=== PATIENT | male | born 1965 | race Caucasian/White ===

== ENCOUNTER 2021-09-27 18:07 | Emergency (ER) | payer OTHER ==
--- OUTSIDE RECORDS SUMMARY | 2021-09-27 18:16 | XMS REPORT | Continuity of Care Document ---
:1965 Author Organization [facility] t Address [address] [place] [address] Care Team Providers Name Role Phone Emani Knox Primary Care Physician Meerasaveronica Attending Clinician Unavailable Richard Galvin Attending Clinician Unavailable VIKY JONES Attending Clinician Unavailable Parker Attending Clinician Unavailable Wanda SCHNEIDER Attending Clinician Unavailable Wanda Schneider DO Attending Clinician Marquis LEE, L Attending Clinician Unavailable OUMAR, S Attending Clinician Unavailable Oumar PALMER, S Attending Clinician Bobbi LEE, A Attending Clinician Unavailable Narayan PALEMR Attending Clinician Boo Thomas MD Attending Clinician Boo THOMAS Attending Clinician Unavailable Erica PALMER Attending Clinician Augustina Pizarro Attending Clinician Unavailable Richard Galvin Admitting Clinician Unavailable Vanda Wilcox Admitting Clinician Unavailable Tiffanie OSEGUERA Admitting Clinician Unavailable Payers Payer Name Policy Type Policy Number Effective Date Expiration Date S aurelia [facility] [id number] 2020 O 00:00:00 MED[place]ID OF [place] [id number] 2020 00:00:00 [employer] MEDICARE [id number] 2018 ADVANTAGE 00:00:00 [employer]NA [id number] 2020 2020 00:00:00 00:00:00 Problems Condition Condition Condition Status Onset Resolution Last Treating Co mments Source Name Details Category Date Date Treatment Clinician Date Extensor Extensor Disease Active NPI:1 52 tendinitis tendinitis 11-11 85 [id number] of hand of hand 00:00: 00 Left wrist Left wrist Disease Active N PI:152 sprain sprain 11-08 [id number] 00:00: 00 S69.82XA - Diagnosis Active 2020-11-07 Memoria OTH 10-23 01:50:00 l INJURIES S69.82XA 00:01: Herm concha OF LEFT - OTH 00 WRIST, H INJURIES OF LEFT WRIST, H Active 10/23/2020 [facility] [place] Wrist Wrist Disease Active NPI:152 pain, pain, 10-22 [id number] acute, acute, 00:00: left left 00 Injury of Injury of Disease Active Last NPI :152 triangular triangular 10-22 Assessmen [id number] fibrocarti fibrocarti 00:00: t & Plan: demarco pal 00 Formattin complex of complex of g of this left wrist left wrist note might be different from the original. I will give a referral to Dr Dayo Maldonado, Orthopedi c hand surgeon, [place] Physician s for evaluatio n from a surgical consultat sommer rodrigues But I recommend continued use of the wrist brace. And may take methocarb shruthi, muscle laxer, naproxen for pain control. Overall he has not had to take too much because he has been doing fairly well without any med or extra type of treatment . CP Diagnosis Active 2020-06-21 Mem oria 1- 08:18:00 l CP 00:00: Active 06/02/2020 [facility] SBO Diagnosis Active 2018-052019-05-26 Mem oria 2- 12:42:00 l SBO 00:00: Active 05/20/2019 [facility] ABD PAIN Diagnosis Active 2018-052019-05-20 M emoria 07-21 01:26:00 l ABD PAIN 00:00: Robby n 00 Active 05/20/2019 [facility] ABSCESS Diagnosis Active 2014-02-15 Me moria 02-14 15:05:00 l ABSCESS 00:00: [place] 00 Active 02/14/2014 [facility] Cervico-oc Problem Active 2021-02-22 M emoria cipital 12-20 21:32:57 l neuralgia 00:00: [place] (finding) Cervico-oc 00 cipital neuralgia (finding) Active 12/20/2013 Problem 02/22/2021 Data migrated from [place] Orders on 10/23/14. [facility]ID [place] Muscle Problem Active 2021-02-22 Memor ia pain 12-20 21:32:57 l (finding) Muscle 00:00: Laura nn pain 00 (finding) Active 12/20/2013 Problem 02/22/2021 Data migrated from [place] Orders on 10/23/14. [facility] [place] ABDOMINAL Diagnosis Active 2013-11-20 Memoria PAIN 11-19 02:49:00 l 19:00: Aly ABDOMINAL 00 PAIN Active 11/19/2013 [facility] Appendicit Problem Resolve 2021-02-22 Memoria is d 21:32:57 l (disorder) Robby n Appendicit is (disorder) Res[facility] [place] Hiatal Problem Resolve 2021-02-22 Ant miryam hernia d 21:32:57 l (disorder) Hiatal Herm concha hernia (disorder) Resolved [facility] [place] Inguinal Problem Resolve 2021-02-22 Me moria hernia d 21:32:57 l (disorder) Inguinal He rmann hernia (disorder) Resolved Problem 02/22/2021 [facility] [place] Crohn's Problem Active 2021-02-22 Ant miryam disease 21:32:57 l (disorder) Crohn's Her galindo disease (disorder) Active Problem 02/22/2021 [facility] Diabetes Problem Active 2021-02-22 Mem oria mellitus 21:32:57 l (disorder) Diabetes He rmann mellitus (disorder) Active Problem 02/22/2021 [facility] [place] Injury of Problem Active 2021-02-22 Me moria forearm 21:32:57 l (disorder) Injury Herm concha of forearm (disorder) [facility] [place] Injury of Problem Active 2021-02-22 Me moria wrist 21:32:57 l (disorder) Injury Herm concha of wrist (disorder) Active [facility] [place] [place] Intestinal Problem Active 2021-02-22 M emoria obstructio 21:32:57 l n [place] (disorder) Intestinal obstructio n (disorder) Active Problem 02/22/2021 [facility] [place] Varicose Problem Active 2021-02-22 Mem oria veins of 21:32:57 l lower Varicose Robby n extremity veins of (disorder) lower extremity (disorder) Active Problem 02/22/2021 [facility], [facility] [facility] Problem Active 2021-02-22 M emoria procedure 21:32:57 l with Aly explicit Counseling context procedure (situation with ) explicit context (situation ) Active Problem 02/22/2021 [facility] Group Gastroesop Problem Active 2021-02-22 M emoria hageal 21:32:57 l reflux [place] disease Gastroesop (disorder) hageal reflux disease (disorder) Active Problem 02/22/2021 [facility] Type II Problem Active 2021-02-22 Ant miryam diabetes 21:32:57 l mellitus Type II Laura nn uncontroll diabetes ed mellitus (finding) uncontroll ed (finding) Active Problem 02/22/2021 [facility] Group UNSPECIFIE Diagnosis Active 2019-05-24 Memoria D 07:50:00 l INTESTINAL Robby n OBSTRUCTIO UNSPECIFIE N, D UNSPECIFIE INTESTINAL D T OBSTRUCTIO N, UNSPECIFIE D T Active [facility] UNSP Diagnosis Active 2019-05-26 Mem oria INTESTNL 12:42:00 l OBST, UNSP UNSP Robby n TO INTESTNL PARTIAL V OBST, UNSP TO PARTIAL V Active [facility] No known No known Disease NPI:1 83 active active [id number] problems problems History of Past Illness Condition Condition Condition Status Onset Resolution Last Treating Co mments Source Name Details Category Date Date Treatment Clinician Date Chest Problem 2020-06-04 2020-06-04 Ami emoria pain, 06-02 22:41:58 22:41:58 l unspecifie Chest 18:00: Laura nn d pain, 00 unspecifie d 06/02/2020 06/04/2020 [facility] Unspecifie Problem 2018-09-09 2018-09-09 Memoria d -16 01:27:28 01:27:28 l abdominal 05:00: Aly pain Unspecifie 00 d abdominal pain 09/06/2018 09/09/2018 [facility] Discharge Problem 2014-02-18 2014-02-18 Memoria Diagnosis: 02-15 04:59:10 04:59:10 l Cellulitis 05:00: Robby n Discharge 00 Diagnosis: Cellulitis 02/15/2014 02/18/2014 [facility] Discharge Problem 2013-11-22 2013-11-22 Memoria Diagnosis: 6-30 22:38:29 22:38:29 l Abdominal 05:00: Aly hernia Discharge 00 Diagnosis: Abdominal hernia 11/20/2013 11/22/2013 [facility] Discharge Problem 2013-11-22 2013-11-22 Memoria Diagnosis: 6-30 22:38:29 22:38:29 l Abdominal 05:00: Aly pain Discharge 00 Diagnosis: Abdominal pain 11/20/2013 11/22/2013 [facility] Allergies, Adverse Reactions, Alerts Allergy Allergy Status Severity Reaction(s) Onset Inactive Treating Comm ents Source Name Type Date Date Clinician LATEX DRUG Active Med Hives 2020-05 NPI:183 INGREDI 06-04 [id number] 00:00: 00 Latex Propensi Active Hives 2020-05 NPI:183 ty to 06-04 [id number] adverse 00:00: reaction 00 s Penicill DA Active SV UNKNOWN-HAPP 2020-05 HC A ins ENED A 06-04 Clear BABY-RASHES, 00:00: Smith COULDNT 00 [facility] chlorhex DA Active [place] POSSIBLE 2020-05 [facility] idine HIVES 06-04 Clear 00:00: Smith 00 [facility] prometha DA Active U DOES NOT 2020-05 [facility] zine RELIEVE 1-12 Clear NAUSEA 00:00: Smith 00 [facility] latex DA Active [place] POSSIBLE 2020-05 [facility] HIVES 1-12 Clear 00:00: [place] 00 [facility] PENICILL 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 Active 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:183 IN INGREDI 1 [id number] 00:00: 00 Penicill Propensi Active Unknown - 2020-05 NPI :183 in ty to See comments 06-03 [id number] adverse 00:00: reaction 00 s chlorhex DA Active [place] 2020-05 [facility] idine 0-27 [place] 00:00: d 00 [facility] latex DA Active [place] 2020-05 [facility] 0-27 [place] 00:00: d 00 [facility] chlorhex DA Active [place] POSSIBLE 2020-05 [facility] idine HIVES 0-27 [place] 00:00: d 00 [facility] latex DA Active [place] POSSIBLE 2020-05 [facility] HIVES 0-27 [place] 00:00: d 00 [facility] Penicill DA Active SV UNKNOWN-HAPP 2020-05 HC A ins ENED A 0-21 [place] BABY-RASHES, 00:00: d COULDNT [facility] BREATH [place] prometha DA Active U DOES NOT 2020-05 [facility] zine RELIEVE 0-21 [place] NAUSEA 00:00: d 00 [facility] Center Penicill DA Active SV 2020-05 [facility] ins 0-21 Clear 00:00: Smith 00 [facility] prometha DA Active U 2020-05 [facility] zine 0-21 Clear 00:00: [place] 00 [facility] prometha DA Active U 2020-05 [facility] zine 0-19 [place] 00:00: d 00 [facility] prometha DA Active U DOES NOT 2020-05 [facility] zine RELIEVE 0-19 [place] NAUSEA 00:00: d 00 [facility] Center Penicill DA Active SV UNKNOWN-HAPP 2016-05 HC A ins ENED A 1-03 Clear BABY-RASHES, 00:00: Smith COULDNT 00 [facility] Penicill DA Active SV 2016-05 [facility] ins 1-03 Clear 00:00: [place] 00 [facility] penicill penicill Active Memori a ins<sup> ins<sup> 7-30 l 1</sup> 1</sup> 05:00: Phenerga Phenerga Active Memori a n n 12-20 l 05:00: Penicill Allergy Active Data NPI:152 ins to 12-20 [facility] [id number] [facility] 00:00: from GE e 00 Centricit y on 12/20/14. Originall y documente d as PENICILLI N. 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 Clinician (SIG) Name Name No known No NPI:183 medications 06-22 [id number] 11:11: 15 No known No NPI:183 medications 06-22 [id number] 11:11: 15 acetaminoph 2020-05 1000mg 1,000 mg, NPI:183 en -12 11-12 Oral, [id number] (TYLENOL) 11:15: 10:14 ONCE, 1 tablet 00 :00 dose, On 1,000 mg Wed04/04/21 at 0515, Routine vancomycin 2020-05 No 15mg/kg 1,000 mg NPI:183 (VANCOCIN) 06-04 (rounded 1318 781 1,000 mg in 09:30: 09:30 from 1,068 NaCl 0.9% 00 :00 mg = 15 (NS) 250 mL mg/kg VIAL-MATE ?71.2 kg), IV IV piggyback Piggyback, ONCE, 1 dose, On Wed04/04/21 at 0330, Administer over 60 Minutes, 250 mL
Reas on for Anti-Infec tive: Empiric Therapy for Suspected Infection< br>Empiric Therapy Site: Abdominal< br>Duratio n of therapy: 72 hours iopamidol 2020-05- No [id number] 120mL 120 mL, NPI:183 (ISOVUE 06-04 Intravenou [id number] 370-500 mL) 08:45: 08:45 s, ONCE, 1 injection 00 :00 dose, On 120 mL Wed04/04/21 at 0245, Routine NaCl 0.9% 2020-05 Yes 1000mL at 125 NPI: 183 (NS) IV 1-12 mL/hr, [id number] infusion 08:15: Intravenou 1,000 mL 00 s, CONTINUOUS , Starting on Wed04/04/21 at 0215, Until Discontinu ed, Routine&lt ;br>After 500 CC Bolus
NaCl 0.9% 2020-05 No 500mL at 999 NPI: 183 (NS) bolus 06-0412 mL/hr, 500 13 [id number] infusion 07:45: 07:13 mL, IV 500 mL 00 :00 Infusion, ONCE, 1 dose, On Wed04/04/21 at 0145, STAT NaCl 0.9% 2020-05 Yes 1000mL at 999 NPI: 183 (NS) IV 1-12 mL/hr, [id number] infusion 06:45: Intravenou 1,000 mL 00 s, CONTINUOUS , Starting on Wed04/04/21 at 0045, Until Discontinu ed, Routine No known 2020-05 No NPI:183 medications 06-03 [id number] 23:23: 54 Docusate Yes 100 mg = 1 Mem oria Sodium 100 9-10 cap, PO, l MG Oral 15:24: Daily, PRN Herm concha Capsule 00 Constipati on, # 20 cap, 0 Refill(s) POLYETHYLEN Yes 17 gm, PO, Memoria E GLYCOL 9-10 Daily, 0 l 3350 15:24: Refill(s) Docusate Yes 100 mg = 1 Mem oria Sodium 100 9-10 cap, PO, l MG Oral 15:24: Daily, PRN Herm concha Capsule 00 Constipati on, # 20 cap, 0 Refill(s) POLYETHYLEN Yes 17 gm, PO, Memoria E GLYCOL 9-10 Daily, 0 l 3350 15:24: Refill(s) dexlansopra Yes 60 mg = 1 M emoria zole 60 MG 8-18 cap, PO, l Enteric 19:44: Daily, # Robby n Coated 00 30 cap, 0 Capsule Refill(s) [Dexilant] Amitriptyli Yes PO, Memori a ne 8-18 Bedtime, 0 l 19:44: Refill(s) dexlansopra Yes 60 mg = 1 M emoria zole 60 MG 8-18 cap, PO, l Enteric 19:44: Daily, # Robby n Coated 00 30 cap, 0 Capsule Refill(s) [Dexilant] Amitriptyli Yes PO, Memori a ne 8-18 Bedtime, 0 l 19:44: Refill(s) iopamidol 2020- No [id number] 120mL 120 mL, NPI:183 (ISOVUE 11-27 Intravenou [id number] 81 370-500 mL) 14:59: 15:10 s, ONCE, 1 injection 00 :00 dose, Wed 120 mL 11/27/20 at 1015, Routine meloxicam 2020- No [id number] 7.5mg Take 1 NPI:152 (Mobic) 7.5 10-22 tablet [id number] MG tablet 00:00: 04:59 (7.5 mg 00 :00 total) by mouth 1 (one) time each day if needed for mild pain or moderate pain. meloxicam 2020-2020- No [id number] 7.5mg Take 1 NPI:152 (Mobic) 7.5 10-2202 tablet [id number] 05 MG tablet 00:00: 04:59 (7.5 mg 00 :00 total) by mouth 1 (one) time each day if needed for mild pain or moderate pain. meloxicam 2020-2020- No [id number] 7.5mg Take 1 NPI:152 (Mobic) 7.5 10-22 tablet [id number] MG tablet 00:00: 04:59 (7.5 mg 00 :00 total) by mouth 1 (one) time each day if needed for mild pain or moderate pain. meloxicam 2020-2020- No [id number] 7.5mg Take 1 NPI:152 (Mobic) 7.5 10-22 tablet [id number] 05 MG tablet 00:00: 04:59 (7.5 mg 00 :00 total) by mouth 1 (one) time each day if needed for mild pain or moderate pain. lisinopril 2020-0 No 5 mg = 1 Mem oria 5 mg oral 5-24 tab, PO, l tablet 21:49: Daily, # [place] 00 90 tab, 0 Refill(s) lisinopril 2020-0 No 5 mg = 1 Mem oria 5 mg oral 5-24 tab, PO, l tablet 21:49: Daily, # [place] 00 90 tab, 0 Refill(s) Glipizide 5 2020-0 Yes 5 mg = 1 Me moria MG Oral 5-19 tab, PO, l Tablet 20:20: Daily, # Aly 00 30 tab, 5 Refill(s), Pharmacy: [facility], 172.72, cm, 10/09/20 14:40:00 CDT, Height, 84.176, kg, 10/09/20 14:40:00 CDT, Weight Glipizide 5 2020-0 Yes 5 mg = 1 Me moria MG Oral 5-19 tab, PO, l Tablet 20:20: Daily, # Aly 00 30 tab, 5 Refill(s), Pharmacy: [facility], 172.72, cm, 10/09/20 14:40:00 CDT, Height, 84.176, kg, 10/09/20 14:40:00 CDT, Weight sildenafil 2020-0 Yes 25 mg = 1 Me moria 25 MG Oral 5-19 tab, PO, l Tablet 20:07: Daily, PRN Laura nn 00 for erectile dysfunctio n, # 6 tab, 5 Refill(s), Pharmacy: [facility], 172.72, cm, 10/09/20 14:40:00 CDT, Height, 84.176, kg, 10/09/20 14:40:00 CDT, Weight sildenafil 2020-0 Yes 25 mg = 1 Me moria 25 MG Oral 5-19 tab, PO, l Tablet 20:07: Daily, PRN Laura nn 00 for erectile dysfunctio n, # 6 tab, 5 Refill(s), Pharmacy: [facility], 172.72, cm, 10/09/20 14:40:00 CDT, Height, 84.176, kg, 10/09/20 14:40:00 CDT, Weight empaglifloz 2020-0 Yes 1 tab, PO, Memoria in 25 MG / 5-19 QAM, # 30 l Linagliptin 20:05: tab, 5 Herm concha 5 MG Oral 00 Refill(s), Tablet Pharmacy: [Glyxambi] [facility], 172.72, cm, 10/09/20 14:40:00 CDT, Height, 84.176, kg, 10/09/20 14:40:00 CDT, Weight Glipizide 5 2020-0 No 5 mg = 1 Me moria MG Oral 5-19 tab, PO, l Tablet 20:05: Before Aly 00 Breakfast, # 30 tab, 5 Refill(s), Pharmacy: [facility], 172.72, cm, 10/09/20 14:40:00 CDT, Height, 84.176, kg, 10/09/20 14:40:00 CDT, Weight Metformin 2020-0 Yes 1,000 mg = Me moria hydrochlori 5-19 1 tab, PO, l de 1000 MG 20:05: BID, # 60 He rmann Oral Tablet 00 tab, 5 Refill(s), Pharmacy: [facility], 172.72, cm, 10/09/20 14:40:00 CDT, Height, 84.176, kg, 10/09/20 14:40:00 CDT, Weight sucralfate 0 Yes 1 gm = 1 Mem oria 1 g oral 5-19 tab, PO, l tablet 20:05: QID, # 120 Laura nn 00 tab, 5 Refill(s), Pharmacy: [facility], 172.72, cm, 10/09/20 14:40:00 CDT, Height, 84.176, kg, 10/09/20 14:40:00 CDT, Weight empaglifloz Yes 1 tab, PO, Memoria in 25 MG / 5-19 QAM, # 30 l Linagliptin 20:05: tab, 5 Herm concha 5 MG Oral 00 Refill(s), Tablet Pharmacy: [Glyxambi] [facility], 172.72, cm, 10/09/20 14:40:00 CDT, Height, 84.176, kg, 10/09/20 14:40:00 CDT, Weight Glipizide 5 2020-0 No 5 mg = 1 Me moria MG Oral 5-19 tab, PO, l Tablet 20:05: Before Aly 00 Breakfast, # 30 tab, 5 Refill(s), Pharmacy: [facility], 172.72, cm, 10/09/20 14:40:00 CDT, Height, 84.176, kg, 10/09/20 14:40:00 CDT, Weight Metformin 0 Yes 1,000 mg = Me moria hydrochlori 5-19 1 tab, PO, l de 1000 MG 20:05: BID, # 60 He rmann Oral Tablet 00 tab, 5 Refill(s), Pharmacy: [facility], 172.72, cm, 10/09/20 14:40:00 CDT, Height, 84.176, kg, 10/09/20 14:40:00 CDT, Weight sucralfate 0 Yes 1 gm = 1 Mem oria 1 g oral 5-19 tab, PO, l tablet 20:05: QID, # 120 Laura nn 00 tab, 5 Refill(s), Pharmacy: [facility], 172.72, cm, 10/09/20 14:40:00 CDT, Height, 84.176, kg, 10/09/20 14:40:00 CDT, Weight atorvastati 0 Yes 40 mg = 1 M emoria n 40 mg 5-19 tab, PO, l oral tablet 20:04: Daily, # He rmann 00 30 tab, 5 Refill(s), Pharmacy: [facility], 172.72, cm, 10/09/20 14:40:00 CDT, Height, 84.176, kg, 10/09/20 14:40:00 CDT, Weight atorvastati Yes 40 mg = 1 M emoria n 40 mg 5-19 tab, PO, l oral tablet 20:04: Daily, # He rmann 00 30 tab, 5 Refill(s), Pharmacy: [facility], 172.72, cm, 10/09/20 14:40:00 CDT, Height, 84.176, kg, 10/09/20 14:40:00 CDT, Weight atorvastati 0 Yes NPI:15 2 n (Lipitor) 5-11 [id number] 40 MG 00:00: tablet 00 metFORMIN 2020-0 Yes NPI:152 (Glucophage 5-11 [id number] ) 1000 MG 00:00: tablet 00 Glyxambi 2020-0 Yes NPI:152 25-5 MG 5-11 [id number] 00:00: 00 atorvastati 2020-0 Yes NPI:15 2 n (Lipitor) 5-11 [id number] 40 MG 00:00: tablet 00 metFORMIN 2020-0 Yes NPI:152 (Glucophage 5-11 [id number] ) 1000 MG 00:00: tablet 00 Glyxambi 2020-0 Yes NPI:152 25-5 MG 5-11 [id number] 00:00: 00 atorvastati 2020-0 Yes NPI:15 2 n (Lipitor) 5-11 [id number] 40 MG 00:00: tablet 00 metFORMIN 2020-0 Yes NPI:152 (Glucophage 5-11 [id number] ) 1000 MG 00:00: tablet 00 Glyxambi 2021-0 Yes NPI:152 25-5 MG 5-11 [id number] 00:00: 00 atorvastati 2021-0 Yes NPI:15 2 n (Lipitor) 5-11 [id number] 40 MG 00:00: tablet 00 metFORMIN 2021-0 Yes NPI:152 (Glucophage 5-11 [id number] ) 1000 MG 00:00: tablet 00 Glyxambi 2020-0 Yes NPI:152 25-5 MG 5-11 [id number] 00:00: 00 atorvastati 2021-0 Yes NPI:15 2 n (Lipitor) 5-11 [id number] 40 MG 00:00: tablet 00 metFORMIN 1-0 Yes NPI:152 (Glucophage 5-11 [id number] ) 1000 MG 00:00: tablet 00 Glyxambi 2021-0 Yes NPI:152 25-5 MG 5-11 [id number] 00:00: 00 glipiZIDE 1-0 Yes NPI:152 XL 5-06 [id number] (Glucotrol 00:00: XL) 5 MG 24 00 hr tablet glipiZIDE 1-0 Yes NPI:152 XL 5-06 [id number] (Glucotrol 00:00: XL) 5 MG 24 00 hr tablet glipiZIDE 1-0 Yes NPI:152 XL 5-06 [id number] (Glucotrol 00:00: XL) 5 MG 24 00 hr tablet glipiZIDE 1-0 Yes NPI:152 XL 5-06 [id number] (Glucotrol 00:00: XL) 5 MG 24 00 hr tablet glipiZIDE 1-0 Yes NPI:152 XL 5-06 [id number] (Glucotrol 00:00: XL) 5 MG 24 00 hr tablet Omnipaque 1-0 No 45 Memoria 300 1-10 mL/min, l injectable 18:47: STAT, Robby n solution 00 Start date: 06/02/20 12:47:00 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, Stop date: 06/02/20 12:47:00 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 Omnipaque 2020-0 No 45 Memoria 300 1-10 mL/min, l injectable 18:47: STAT, Robby n solution 00 Start date: 06/02/20 12:47:00 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, Stop date: 06/02/20 12:47:00 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 NS (Bolus) No 250 mL, Ant miryam IV 1-10 250 ml/hr, l 17:55: Infuse [place] 00 Over: 1 hr, Route: IV, 250, Drug form: INJ, ONCE, Priority: STAT, Dosing Weight 85.199 kg, Start date: 06/02/20 11:55:00 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, Stop date: 06/02/20 11:55:00 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, 0 NS (Bolus) No 250 mL, Ant miryam IV 1-10 250 ml/hr, l 17:55: Infuse Aly 00 Over: 1 hr, Route: IV, 250, Drug form: INJ, ONCE, Priority: STAT, Dosing Weight 85.199 kg, Start date: 06/02/20 11:55:00 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, Stop date: 06/02/20 11:55:00 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, 0 Saline No Notes: Memoria Flush 0.9% 1-10 (Same as: l 17:46: BD [place] 00 Posiflush) Saline No Notes: Memoria Flush 0.9% 1-10 (Same as: l 17:46: BD [place] 00 Posiflush) Levofloxaci 2019-0 No Notes: Do M emoria n 05-24 not give l 21:25: w/antacids Aly 00 , dairy pdt & minerals Take 1 hr before or 2 hr after dairy products Levofloxaci 2019-0 No Notes: Do M emoria n 05-24 not give l 21:25: w/antacids [place] 00 , dairy pdt & minerals Take 1 hr before or 2 hr after dairy products Dicyclomine 2020-0 Yes 20 mg = 1 M emoria Hydrochlori 1- tab, PO, l de 20 MG 21:23: QID-Before Her galindo Oral Tablet 32 Meals, # [Bentyl] 56 tab, 1 Refill(s), Pharmacy: [place] [facility] [id number] Dicyclomine 2020-0 Yes 20 mg = 1 M emoria Hydrochlori 1- tab, PO, l de 20 MG 21:23: QID-Before Her galindo Oral Tablet 32 Meals, # [Bentyl] 56 tab, 1 Refill(s), Pharmacy: [place] [address] levofloxaci 2020-0 Yes 750 mg = 1 Memoria n 750 mg 1-01 tab, PO, l oral tablet 21:23: Daily, X 5 Aly 00 day, # 5 tab, 0 Refill(s), Pharmacy: [place] [address] levofloxaci 2020-0 Yes 750 mg = 1 Memoria n 750 mg 1-01 tab, PO, l oral tablet 21:23: Daily, X 5 Aly 00 day, # 5 tab, 0 Refill(s), Pharmacy: [place] [id number] Potassium 2020-0 No Notes: Memori a Chloride 1-01 (Same as: l 1.33 MEQ/ML 19:42: K-Pura) Herm concha Oral 00 With food Solution and full glass of water Potassium 0 No Notes: Memori a Chloride 1-01 (Same as: l 1.33 MEQ/ML 19:42: K-Pura) Herm concha Oral 00 With food Solution and full glass of water Levaquin 2018-05 No Notes: Memoria 2-31 (Same l 23:00: as:Levaqui n) Levaquin 2018-05 No Notes: Memoria 2-31 (Same l 23:00: as:Levaqui n) Dicyclomine 2018-05 No 20 mg = 1 M emoria Hydrochlori 2-31 tab, PO, l de 20 MG 15:46: QID-Before Her galindo Oral Tablet 00 Meals, # [Bentyl] 56 tab, 0 Refill(s) Dicyclomine 2018-05 No 20 mg = 1 M emoria Hydrochlori 2-31 tab, PO, l de 20 MG 15:46: QID-Before Her galindo Oral Tablet 00 Meals, # [Bentyl] 56 tab, 0 Refill(s) Benadryl 2018-05 No Notes: Memoria 2-31 (Same as: l 03:36: Benadryl) Benadryl 2018-05 No Notes: Memoria 2-31 (Same as: l 03:36: Benadryl) Flagyl 2018-05 No Notes: Memoria 2-31 (Same as: l 00:13: Flagyl) Avoid alcohol. Cipro 2019-1 No Notes: Do Memoria 2-31 not l 00:13: refrigerat [place] 00 e Flagyl 2018-05 No Notes: Memoria 2-31 (Same as: l 00:13: Flagyl) [place] 00 Avoid alcohol. Cipro 2018-05 No Notes: Do Memoria 2-31 not l 00:13: refrigerat [place] 00 e Calcium 2018-05 No 1,000 mL, Memor ia Chloride 2-30 Rate: 50 l 0.002 22:48: ml/hr, [place] MEQ/ML / 00 Infuse Glucose 50 over: 20 MG/ML / hr, Route: Potassium IV, Dosing Chloride Weight 0.004 89.1 kg, MEQ/ML / Total Sodium Volume: Chloride 1,000, 0.147 Start MEQ/ML date: Injectable 05/22/19 Solution 16:48:00 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, Duration: 30 day, Stop date: 06/21/19 16:47:00 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, 2.09, m2, 0 Calcium 2018-05 No 1,000 mL, Memor ia Chloride 2-30 Rate: 50 l 0.002 22:48: ml/hr, Aly MEQ/ML / 00 Infuse Glucose 50 over: 20 MG/ML / hr, Route: Potassium IV, Dosing Chloride Weight 0.004 89.1 kg, MEQ/ML / Total Sodium Volume: Chloride 1,000, 0.147 Start MEQ/ML date: Injectable 05/22/19 Solution 16:48:00 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, Duration: 30 day, Stop date: 06/21/19 16:47:00 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, 2.09, m2, 0 Codeine 2018-05 No Notes: Memoria Phosphate 2 2-30 (Same As: l MG/ML / 03:00: Robitussin Herm concha Guaifenesin 00 AC) 20 MG/ML Oral Solution Codeine 2018-05 No Notes: Mem[facility] Phosphate 2 2-30 (Same As: l MG/ML / 03:00: Robitussin Herm concha Guaifenesin AC) 20 MG/ML Oral Solution phenol 2018-05 No Notes: Memoria 2-29 Chlorasept l 15:09: ic [place] (Same as: Chlorasept ic, Sore Throat [place]) WASTE: F/P - Black; E - Municipal Trash Bin phenol 2018-05 No Notes: Memoria 2-29 Chlorasept l 15:09: ic [place] (Same as: Chlorasept ic, Sore Throat [place]) WASTE: F/P - Black; E - Municipal Trash Bin atorvastati 2018-05 No Notes: Ant miryam n 2-29 (Same as: l 15:00: Lipitor) atorvastati 2018-05 No Notes: Ant miryam n 2-29 (Same as: l 15:00: Lipitor) Insulin 2018-05 No Notes: Memoria Glargine 2- (Same as: l 03:00: Lantus) Do not hold insulin without contacting prescriber Insulin 2018-05 No Notes: Memoria Glargine 2- (Same as: l 03:00: Lantus) Do not hold insulin without contacting prescriber empaglifloz 2018-05 Yes 1 tab, PO, Memoria in 25 MG / 2-28 QAM, 0 l Linagliptin 18:30: Refill(s) H ermann 5 MG Oral 00 Tablet [Glyxambi] Metformin 2018-05 Yes 1,000 mg, Mem oria 2-28 PO, BID, 0 l 18:30: Refill(s) atorvasti 2018-05 Yes 40 mg = 1 M emoria n 40 mg 2-28 tab, PO, l oral tablet 18:30: Daily, 0 He rm 00 Refill(s) Glipizide 5 2018-05 Yes 5 mg = 1 Me moria MG Oral 2-28 tab, PO, l Tablet 18:30: Before Breakfast, # 30 tab, 0 Refill(s) empaglifloz 2018-05 Yes 1 tab, PO, Memoria in 25 MG / 2-28 QAM, 0 l Linagliptin 18:30: Refill(s) H ermann 5 MG Oral 00 Tablet [Glyxambi] Metformin 2018-05 Yes 1,000 mg, Mem oria 2-28 PO, BID, 0 l 18:30: Refill(s) atorvastati 2018-05 Yes 40 mg = 1 M emoria n 40 mg 2-28 tab, PO, l oral tablet 18:30: Daily, 0 He rmann 00 Refill(s) Glipizide 5 2018-05 Yes 5 mg = 1 Me moria MG Oral 2-28 tab, PO, l Tablet 18:30: Before Breakfast, # 30 tab, 0 Refill(s) Calcium 2018-05 No 1,000 mL, Memor ia Chloride 2-28 Rate: 125 l 0.002 17:32: ml/hr, [place] MEQ/ML / 00 Infuse Glucose 50 over: 8 MG/ML / hr, Route: Potassium IV, Dosing Chloride Weight 0.004 89.1 kg, MEQ/ML / Total Sodium Volume: Chloride 1,000, 0.147 Start MEQ/ML date: Injectable 05/20/19 Solution 11:32:00 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, Duration: 30 day, Stop date: 06/19/19 11:31:00 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, 2.09, m2, 0 Calcium 2018-05 No 1,000 mL, Memor ia Chloride 2-28 Rate: 125 l 0.002 17:32: ml/hr, Aly MEQ/ML / 00 Infuse Glucose 50 over: 8 MG/ML / hr, Route: Potassium IV, Dosing Chloride Weight 0.004 89.1 kg, MEQ/ML / Total Sodium Volume: Chloride 1,000, 0.147 Start MEQ/ML date: Injectable 05/20/19 Solution 11:32:00 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, Duration: 30 day, Stop date: 06/19/19 11:31:00 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, 2.09, m2, 0 Protonix 2018-05 No Notes: For Mem oria 2-28 IV push l 15:00: reconstitu 00 te with 10 ml 0.9% sodium chloride and push over 2 minutes. (Same as: Protonix) Enoxaparin 2018-05 No Notes: Memor ia 2-28 (Same as: l 15:00: Lovenox) Protonix 2018-05 No Notes: For Mem oria 2-28 IV push l 15:00: reconstitu Aly 00 te with 10 ml 0.9% sodium chloride and push over 2 minutes. (Same as: Protonix) Enoxaparin 2018-05 No Notes: Memor ia 2-28 (Same as: l 15:00: Lovenox) Hydralazine 2018-05 No Notes: Ant miryam 2-28 (Same as: l 14:32: Apresoline ) Push over 5 minutes Hydralazine 2018-05 No Notes: Ant miryam 2-28 (Same as: l 14:32: Apresoline ) Push over 5 minutes Dextrose 2018-05 No 12.5 gm, Memor ia 50% Syringe 2-28 25 mL, l (D50W) 14:29: Route: [place] 00 IVP, Drug Form: INJ, Dosing Weight 89.1, kg, PRN, PRN Blood Glucose Results, Start date: 05/20/19 8:29:00 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, Duration: 30 day, Stop date: 06/19/19 8:28:00 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, 0 Glucagon 2018-05 No 1 mg, Memoria 2-28 Route: IM, l 14:29: Drug form: PDR/INJ, PRN, Dosing Weight 89.1, kg, PRN Blood Glucose Results, Start date: 05/20/19 8:29:00 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, Duration: 30 day, Stop date: 06/19/19 8:28:00 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, 0 Insulin 2018-05 No Notes: Memoria Lispro 2-28 (Same as: l 14:29: Humalog) Roll in palms of hands gently; Do not shake vigorously . WASTE: F/P - Black; E - Municipal Trash Bin Stable for 28 days at room temperatur e. Expires in days from ____Date Dextrose 2018-05 No 12.5 gm, Memor ia 50% Syringe 2- 25 mL, l (D50W) 14:29: Route: IVP, Drug Form: INJ, Dosing Weight 89.1, kg, PRN, PRN Blood Glucose Results, Start date: 05/20/19 8:29:00 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, Duration: 30 day, Stop date: 06/19/19 8:28:00 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, 0 Glucagon 2018-05 No 1 mg, Memoria 2-28 Route: IM, l 14:29: Drug form: Aly 00 PDR/INJ, PRN, Dosing Weight 89.1, kg, PRN Blood Glucose Results, Start date: 05/20/19 8:29:00 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, Duration: 30 day, Stop date: 06/19/19 8:28:00 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, 0 Insulin 2018-05 No Notes: [facility] Lispro 2- (Same as: l 14:29: Humalog) Aly 00 Roll in palms of hands gently; Do not shake vigorously . WASTE: F/P - Black; E - Municipal Trash Bin Stable for 28 days at room temperatur e. Expires in days from ____Date Reglan 2018-05 No Notes: Memoria 2- (Same as: l 12:08: Reglan) Aly 00 Reglan 2018-05 No Notes: Memoria - (Same as: l 12:08: Reglan) [place] 00 Acetaminoph 2018-05 No Notes: Do M emoria en - not exceed l 10:19: 4 gm/day. Aly 00 (Same as: Tylenol) Zofran 2018-05 No Notes: Memoria - (Same as: l 10:19: Zofran) Aly 00 MEDICATION WASTE Product Size: 4 mg Product Wasted: ___ mg tramadol 2018-05 No Notes: Not Mem oria hydrochlori 07-21 to exceed l de 50 MG 10:19: 400mg/day. Her galindo Oral Tablet 00 (Same As: Ultram) Acetaminoph 2018-05 No Notes: Ant miryam en 325 MG / - Same as l Hydrocodone 10:19: Merino Laura nn Bitartrate 00 325-7.5mg 7.5 MG Oral Do not Tablet exceed [Merino 4gm/day of 7.5/325] acetaminop hen. Morphine 2018-05 No Notes: Memoria - (Same l 10:19: as:MORPhin [place] 00 e Sulfate) Labetalol 2018-05 No Notes: Memori a - (Same as: l 10:19: Normodyne, Aly 00 Trandate) Push over 2 minutes Give bolus over 2-3 minutes. Docusate 2018-05 No Notes: Memoria Sodium 100 - (Same as: l MG Oral 10:19: Colace) Aly Capsule 00 (Do Not [Colace] Crush) Restoril 2018-05 No Notes: Memoria - (Same As: l 10:19: Restoril) Aly 00 Dextrose 2018-05 No 12.5 gm, Memor ia 50% Syringe -28 25 mL, l (D50W) 10:19: Route: [place] 00 IVP, Drug Form: INJ, Dosing Weight 86.364, kg, PRN, PRN Blood Glucose Results, Start date: 05/20/19 4:19:00 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, Duration: 30 day, Stop date: 06/19/19 4:18:00 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, 0 Glucagon 2018-05 No 1 mg, Memoria 07-21 Route: IM, l 10:19: Drug form: [place] 00 PDR/INJ, PRN, Dosing Weight 86.364, kg, PRN Blood Glucose Results, Start date: 05/20/19 4:19:00 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, Duration: 30 day, Stop date: 06/19/19 4:18:00 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, 0 Sodium 2018-05 No 1,000 mL, Memori a Chloride 07-21 Rate: 125 l 0.9% IV 10:19: ml/hr, [place] 1,000 mL 00 Infuse over: 8 hr, Route: IV, Dosing Weight 86.364 kg, Total Volume: 1,000, Start date: 05/20/19 4:19:00 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, Duration: 30 day, Stop date: 06/19/19 4:18:00 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, 2.05, m2, 0 Saline 2018-05 No Notes: Memoria Flush 0.9% - (Same as: l 10:19: BD [place] Posiflush) Acetaminoph 2018-05 No Notes: Do M emoria en - not exceed l 10:19: 4 gm/day. Aly 00 (Same as: Tylenol) Zofran 2018-05 No Notes: Memoria 2-28 (Same as: l 10:19: Zofran) Aly 00 MEDICATION WASTE Product Size: 4 mg Product Wasted: ___ mg tramadol 2018-05 No Notes: Not Mem oria hydrochlori - to exceed l de 50 MG 10:19: 400mg/day. Her galindo Oral Tablet 00 (Same As: Ultram) Acetaminoph 2018-05 No Notes: Ant miryam en 325 MG / -28 Same as l Hydrocodone 10:19: Merino Laura nn Bitartrate 00 325-7.5mg 7.5 MG Oral Do not Tablet exceed [[place] 4gm/day of 7.5/325] acetaminop hen. Morphine 2018-05 No Notes: Memoria 2-28 (Same l 10:19: as:MORPhin [place] 00 e Sulfate) Labetalol 2018-05 No Notes: Memori a 2-28 (Same as: l 10:19: Normodyne, [place] 00 Trandate) Push over 2 minutes Give bolus over 2-3 minutes. Docusate 2018-05 No Notes: Memoria Sodium 100 - (Same as: l MG Oral 10:19: Colace) Aly Capsule 00 (Do Not [Colace] Crush) Restoril 2018-05 No Notes: Memoria 2-28 (Same As: l 10:19: Restoril) [place] 00 Dextrose 2018-05 No 12.5 gm, Memor ia 50% Syringe 07-21 25 mL, l (D50W) 10:19: Route: [place] 00 IVP, Drug Form: INJ, Dosing Weight 86.364, kg, PRN, PRN Blood Glucose Results, Start date: 05/20/19 4:19:00 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, Duration: 30 day, Stop date: 06/19/19 4:18:00 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, 0 Glucagon 2018-05 No 1 mg, Memoria 07-21 Route: IM, l 10:19: Drug form: [place] 00 PDR/INJ, PRN, Dosing Weight 86.364, kg, PRN Blood Glucose Results, Start date: 05/20/19 4:19:00 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, Duration: 30 day, Stop date: 06/19/19 4:18:00 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, 0 Sodium 2018-05 No 1,000 mL, Memori a Chloride 07-21 Rate: 125 l 0.9% IV 10:19: ml/hr, [place] 1,000 mL 00 Infuse over: 8 hr, Route: IV, Dosing Weight 86.364 kg, Total Volume: 1,000, Start date: 05/20/19 4:19:00 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, Duration: 30 day, Stop date: 06/19/19 4:18:00 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, 2.05, m2, 0 Saline 2018-05 No Notes: Memoria Flush 0.9% 07-21 (Same as: l 10:19: BD Aly 00 Posiflush) Lidocaine 2018- No 15 ml, Memori a Viscous 2% 2-28 Route: l mucous 09:15: TOP, ONCE, Laura nn membrane 00 Start solution date: 05/20/19 3:15:00 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, Stop date: 05/20/19 3:15:00 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 Lidocaine 2018- No 15 ml, Memori a Viscous 2% 2-28 Route: l mucous 09:15: TOP, ONCE, Laura nn membrane 00 Start solution date: 05/20/19 3:15:00 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, Stop date: 05/20/19 3:15:00 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 Ondansetron 2018-05 No 4 mg, Memor ia 2 MG/ML 228 Route: IV, l Injectable 09:13: ONCE, Robby n Solution 00 Dosing [Zofran] Weight 86.364, kg, Start date: 05/20/19 3:13:00 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, Stop date: 05/20/19 3:13:00 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 Ondansetron 2018- No 4 mg, Memor ia 2 MG/ML 07-21 Route: IV, l Injectable 09:13: ONCE, Robby n Solution 00 Dosing [Zofran] Weight 86.364, kg, Start date: 05/20/19 3:13:00 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, Stop date: 05/20/19 3:13:00 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 Morphine 2018- No 6 mg, Memoria 2-28 Route: IV, l 09:12: ONCE, Aly Dosing Weight 86.364, kg, Priority: STAT, Start date: 05/20/19 3:12:00 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, Stop date: 05/20/19 3:12:00 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 Morphine 2018- No 6 mg, Memoria 2-28 Route: IV, l 09:12: ONCE, [place] Dosing Weight 86.364, kg, Priority: STAT, Start date: 05/20/19 3:12:00 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, Stop date: 05/20/19 3:12:00 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 Omnipaque 2018-05 No Notes: Memori a 300 2-28 (Same l injectable 08:03: as:Omnipaq H ermann solution 00 ue 300). WASTE: F/P - Black; E - Municipal Trash Bin Omnipaque 2018-05 No Notes: Memori a 300 2-28 (Same l injectable 08:03: as:Omnipaq H ermann solution 00 ue 300). WASTE: F/P - Black; E - Municipal Trash Bin Morphine 2018-05 No Notes: Memoria 2-28 (Same l 06:53: as:MORPhin Aly 00 e Sulfate) Morphine 2018-05 No Notes: Memoria 2-28 (Same l 06:53: as:MORPhin [place] e Sulfate) Sodium 2018-05 No 1,000 mL, Memori a Chloride 2-28 Infuse l 0.9% 06:41: Over: 1 Aly (Bolus) IV 00 hr, Route: IV, ONCE, Priority: STAT, Dosing Weight 86.364 kg, Start date: 05/20/19 0:41:00 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, Stop date: 05/20/19 0:41:00 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 Ondansetron 2018-05 No 4 mg, Memor ia 07-21 Route: l 06:41: IVP, ONCE, Dosing Weight 86.364, kg, Priority: STAT, Start date: 05/20/19 0:41:00 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, Stop date: 05/20/19 0:41:00 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 Famotidine 2018-05 No 20 mg, Memor ia 07-21 Route: l 06:41: IVP, ONCE, Aly 00 Dosing Weight 86.364, kg, Priority: STAT, Start date: 05/20/19 0:41:00 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, Stop date: 05/20/19 0:41:00 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 Sodium 2018-05 No 1,000 mL, Memori a Chloride 2-28 Infuse l 0.9% 06:41: Over: 1 Aly (Bolus) IV 00 hr, Route: IV, ONCE, Priority: STAT, Dosing Weight 86.364 kg, Start date: 05/20/19 0:41:00 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, Stop date: 05/20/19 0:41:00 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 Ondansetron 2018-05 No 4 mg, Memor ia 07-21 Route: l 06:41: IVP, ONCE, Aly 00 Dosing Weight 86.364, kg, Priority: STAT, Start date: 05/20/19 0:41:00 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, Stop date: 05/20/19 0:41:00 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 Famotidine 2018-05 No 20 mg, Memor ia 07-21 Route: l 06:41: IVP, ONCE, Dosing Weight 86.364, kg, Priority: STAT, Start date: 05/20/19 0:41:00 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, Stop date: 05/20/19 0:41:00 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 Dicyclomine Yes 20 mg = 1 M emoria Hydrochlori 4-16 tab, PO, l de 20 MG 18:14: QID-Before Her galindo Oral Tablet 00 Meals, # [Bentyl] 28 tab, 0 Refill(s) Dicyclomine Yes 20 mg = 1 M emoria Hydrochlori 4-16 tab, PO, l de 20 MG 18:14: QID-Before Her galindo Oral Tablet 00 Meals, # [Bentyl] 28 tab, 0 Refill(s) Omnipaque No 45 Memoria 300 4-16 mL/min, l injectable 16:37: STAT, Robby n solution 00 Start date: 09/06/18 11:37:00 CDT, Stop date: 09/06/18 11:37:00 CDT Omnipaque No 45 Memoria 300 4-16 mL/min, l injectable 16:37: STAT, Robyb n solution Start date: 09/06/18 11:37:00 CDT, Stop date: 09/06/18 11:37:00 CDT Ondansetron No Notes: Ant miryam 4-16 (Same as: l 15:36: Zofran) MEDICATION WASTE Product Size: 4 mg Product Wasted: ___ mg Morphine No Notes: Memoria 4-16 (Same l 15:36: as:MORPhin Aly 00 e Sulfate) Saline No Notes: Memoria Flush 0.9% -16 (Same as: l 15:36: BD [place] 00 Posiflush) Ondansetron No Notes: Ant miryam 4-16 (Same as: l 15:36: Zofran) MEDICATION WASTE Product Size: 4 mg Product Wasted: ___ mg Morphine No Notes: Memoria 4-16 (Same l 15:36: as:MORPhin [place] e Sulfate) Saline No Notes: Memoria Flush 0.9% 4-16 (Same as: l 15:36: BD [place] 00 Posiflush) Clindamycin No 300 mg, Mem oria 9-25 Route: PO, l 09:57: ONCE, Dosing Weight 88.636, kg, Priority: STAT, Start date: 02/15/14 4:57:00, Stop date: 02/15/14 4:57:00 Clindamycin No 300 mg, Mem oria 9-25 Route: PO, l 09:57: ONCE, Dosing Weight 88.636, kg, Priority: STAT, Start date: 02/15/14 4:57:00, Stop date: 02/15/14 4:57:00 clindamycin Yes 300 mg = 1 Memoria 300 mg oral 9-25 cap, PO, l capsule 09:56: Q6H, # 56 Laura nn 00 cap, 0 Refill(s) clindamycin Yes 300 mg = 1 Memoria 300 mg oral 9-25 cap, PO, l capsule 09:56: Q6H, # 56 Laura nn 00 cap, 0 Refill(s) Saline No Notes: Memoria Flush 0.9% 9-25 (Same as: l 05:57: BD Aly 00 Posiflush) Ondansetron No Notes: Ant miryam 9-25 (Same as: l 05:57: Zofran) Morphine No Notes: Memoria 9-25 (Same l 05:57: as:MORPhin [place] 00 e Sulfate) Saline No Notes: Memoria Flush 0.9% 9-25 (Same as: l 05:57: BD [place] 00 Posiflush) Ondansetron No Notes: Ant miryam 9-25 (Same as: l 05:57: Zofran) [place] 00 Morphine No Notes: Memoria 9-25 (Same l 05:57: as:MORPhin [place] 00 e Sulfate) Dicyclomine Yes 20 mg = 1 M emoria Hydrochlori 6-30 tab, PO, l de 20 MG 10:23: QID, [place] Oral Tablet 00 abdominal [Bentyl] pain, # 20 tab, 0 Refill(s) Metoclopram Yes 10 mg = 1 M emoria elma 10 MG 6-30 tab, PO, l Oral Tablet 10:23: QID, Robby n [Reglan] 00 Nausea, # 20 tab, 0 Refill(s) Dicyclomine Yes 20 mg = 1 M emoria Hydrochlori 6-30 tab, PO, l de 20 MG 10:23: QID, [place] Oral Tablet 00 abdominal [Bentyl] pain, # 20 tab, 0 Refill(s) Metoclopram Yes 10 mg = 1 M emoria elma 10 MG 6-30 tab, PO, l Oral Tablet 10:23: QID, Robby n [Reglan] 00 Nausea, # 20 tab, 0 Refill(s) tramadol Yes 1-2 tab, Memor ia hydrochlori 6-30 PO, Q6H, l de 50 MG 10:22: Pain, # 20 Her galindo Oral Tablet 00 tab, 0 Refill(s) tramadol Yes 1-2 tab, Memor ia hydrochlori 6-30 PO, Q6H, l de 50 MG 10:22: Pain, # 20 Her galindo Oral Tablet 00 tab, 0 Refill(s) Iohexol No Notes: Memoria 6-30 (Same l 06:59: as:Omnipaq [place] ue 240) 12,000mg/5 0ml Iohexol No Notes: Memoria 6-30 (Same l 06:59: as:Omnipaq Aly ue 240) 12,000mg/5 0ml Ondansetron No Notes: Ant miryam 6-30 (Same as: l 06:56: Zofran) Metoclopram No Notes: Ant miryam elma 6-30 (Same as: l 06:56: Reglan) Morphine No Notes: Memoria 6-30 (Same l 06:56: as:MORPhin 00 e Sulfate) Sodium No 1,000 mL, Memori a Chloride 6-30 1000 l 0.154 06:56: ml/hr, [place] MEQ/ML 00 Infuse Injectable Over: 1 Solution hr, Route: IV, 1,000, Drug form: INJ, ONCE, Priority: STAT, Dosing Weight 81.818 kg, Start date: 11/20/13 1:56:00, Duration: 1 doses or times, Stop date: 11/20/13 1:56:00 Ondansetron No Notes: Ant miryam 11-20 (Same as: l 06:56: Zofran) Metoclopram No Notes: Ant miryam elma 11-20 (Same as: l 06:56: Reglan) Morphine No Notes: Memoria 11-20 (Same l 06:56: as:MORPhin [place] 00 e Sulfate) Sodium No 1,000 mL, Memori a Chloride 11-20 1000 l 0.154 06:56: ml/hr, Aly MEQ/ML 00 Infuse Injectable Over: 1 Solution hr, Route: IV, 1,000, Drug form: INJ, ONCE, Priority: STAT, Dosing Weight 81.818 kg, Start date: 11/20/13 1:56:00, Duration: 1 doses or times, Stop date: 11/20/13 1:56:00 Vital Signs Vital Name Observation Time Observation Value Comments Source Systolic blood 2021-06-22 17:12:00 136 mm[Hg] NPI:18 [id number] pressure Diastolic blood 2021-06-22 17:12:00 96 mm[Hg] NPI:1 [id number] pressure Heart rate 2021-06-22 17:12:00 107 /min NPI:1831 [id number] Body temperature 2021-06-22 17:12:00 37.89 [place] Respiratory rate 2021-06-22 17:12:00 18 /min Body height 2021-06-22 17:12:00 175.3 cm NPI:183 [id number] Body weight 2021-06-22 17:12:00 77.111 kg NPI:183 [id number] BMI 2021-06-22 17:12:00 25.10 kg/m2 NPI:183 [id number] Oxygen saturation in 2021-06-22 17:12:00 99 /min Arterial blood by Pulse oximetry Systolic blood 2021-04-04 17:00:00 95 mm[Hg] NPI:18 [id number] pressure Diastolic blood 2021-04-04 17:00:00 64 mm[Hg] NPI:1 [id number] pressure Heart rate 2021-04-04 17:00:00 72 /min NPI:1831 [id number] Respiratory rate 2021-04-04 17:00:00 21 /min Oxygen saturation in 2021-04-04 17:00:00 96 /min Arterial blood by Pulse oximetry Body temperature 2021-04-04 11:00:00 36.94 [place] Body height 2021-04-04 05:24:00 175.3 cm NPI:1831 [id number] Body weight 2021-04-04 05:24:00 71.215 kg NPI:1831 [id number] BMI 2021-04-04 05:24:00 23.18 kg/m2 NPI:1831 [id number] Systolic blood 2021-02-17 00:00:00 135 mm[Hg] NPI:18 [id number] pressure Diastolic blood 2021-02-17 00:00:00 81 mm[Hg] NPI:1 [id number] pressure Heart rate 2021-02-17 00:00:00 78 /min NPI:1831 [id number] Body temperature 2021-02-17 00:00:00 36.11 [place] Respiratory rate 2021-02-17 00:00:00 18 /min Oxygen saturation in 2021-02-17 00:00:00 96 /min Arterial blood by Pulse oximetry Body weight 2021-02-16 22:13:00 82.555 kg NPI:1831 [id number] Body height 2020-11-11 15:37:00 175.3 cm NPI:1528 [id number] Body weight 2020-11-11 15:37:00 83.915 kg NPI:1528 [id number] BMI 2020-11-11 15:37:00 27.32 kg/m2 NPI:1528 [id number] Body height 2020-11-11 15:37:00 175.3 cm NPI:1528 [id number] Body weight 2020-11-11 15:37:00 83.915 kg NPI:1528 [id number] BMI 2020-11-11 15:37:00 27.32 kg/m2 NPI:1528 [id number] Systolic (mm Hg) 2021-01-31 15:22:00 Ant rial [place] Diastolic (mm Hg) 2021-01-31 15:22:00 Mem orial [place] Heart Rate 2021-01-31 15:22:00 [facility] [place] Height 2021-01-31 15:22:00 172.72 cm [facility] [place] Weight 2021-01-31 15:22:00 [facility] Aly BMI Calculated 2021-01-31 15:22:00 Memori al Aly Systolic (mm Hg) 2021-01-08 19:40:00 Ant rial Aly Diastolic (mm Hg) 2021-01-08 19:40:00 Mem orial Aly Heart Rate 2021-01-08 19:40:00 [facility] [place] Height 2021-01-08 19:40:00 175.26 cm [facility] [place] Weight 2021-01-08 19:40:00 [facility] [place] BMI Calculated 2021-01-08 19:40:00 Memori al [place] Systolic (mm Hg) 2020-10-09 19:40:00 Ant rial Aly Diastolic (mm Hg) 2020-10-09 19:40:00 Mem orial Aly Heart Rate 2020-10-09 19:40:00 [facility] [place] Height 2020-10-09 19:40:00 172.72 cm [facility] A[facility] Weight 2020-10-09 19:40:00 [facility] [place] BMI Calculated 2020-10-09 19:40:00 Memori al [place] Systolic (mm Hg) 2020-06-02 23:06:00 Ant rial Aly Diastolic (mm Hg) 2020-06-02 23:06:00 Mem orial [place] Respitory Rate 2020-06-02 23:06:00 Memori al [place] Systolic (mm Hg) 2020-06-02 19:30:00 Ant rial [place] Diastolic (mm Hg) 2020-06-02 19:30:00 Mem orial Aly Respitory Rate 2020-06-02 19:30:00 Memori al Aly Respitory Rate 2020-06-02 19:00:00 Memori al [place] Systolic (mm Hg) 2020-06-02 19:00:00 Ant rial [place] Diastolic (mm Hg) 2020-06-02 19:00:00 Mem orial Aly BMI Calculated 2020-06-02 17:46:00 Memori al [place] Height 2020-06-02 17:37:00 175.26 cm [facility] A[facility] BMI Calculated 2020-06-02 17:37:00 Memori al Aly Weight 2020-06-02 17:37:00 [facility] [place] Heart Rate 2020-06-02 17:37:00 [facility] A[facility] Temperature Oral (F) 2020-06-02 17:37:00 98.3 F [facility] Temperature Oral (F) 2019-05-24 22:00:00 99.2 F [facility] Heart Rate 2019-05-24 22:00:00 [facility] Systolic (mm Hg) 2019-05-24 22:00:00 Ant rial Aly Diastolic (mm Hg) 2019-05-24 22:00:00 Mem orial [place] Temperature Oral (F) 2019-05-24 18:00:00 99.4 F [facility] [place] Heart Rate 2019-05-24 18:00:00 [facility] [place] Systolic (mm Hg) 2019-05-24 18:00:00 Ant rial [place] Diastolic (mm Hg) 2019-05-24 18:00:00 [facility] [place] Temperature Oral (F) 2019-05-24 14:00:00 98.7 F [facility] [place] Heart Rate 2019-05-24 14:00:00 [facility] Respitory Rate 2019-05-24 14:00:00 [facility] Systolic (mm Hg) 2019-05-24 14:00:00 [facility] [place] Diastolic (mm Hg) 2019-05-24 14:00:00 [facility] [place] Respitory Rate 2019-05-24 10:00:00 [facility] [place] Respitory Rate 2019-05-24 06:00:00 [facility] Height 2019-05-20 11:55:00 172.72 cm [facility] Weight 2019-05-20 11:55:00 [facility] BMI Calculated 2019-05-20 11:55:00 [facility] Height 2019-05-20 06:36:00 172.72 cm [facility] BMI Calculated 2019-05-20 06:36:00 [facility] [place] Weight 2019-05-20 06:36:00 [facility] Heart Rate 2018-09-06 18:34:00 [facility] Systolic (mm Hg) 2018-09-06 18:34:00 [facility] Diastolic (mm Hg) 2018-09-06 18:34:00 [facility] Respitory Rate 2018-09-06 18:34:00 [facility] [place] Heart Rate 2018-09-06 17:51:00 [facility] [place] Respitory Rate 2018-09-06 17:51:00 [facility] Systolic (mm Hg) 2018-09-06 17:51:00 [facility] Diastolic (mm Hg) 2018-09-06 17:51:00 [facility] Respitory Rate 2018-09-06 17:00:00 [facility] Systolic (mm Hg) 2018-09-06 17:00:00 [facility] [place] Diastolic (mm Hg) 2018-09-06 17:00:00 [facility] Heart Rate 2018-09-06 17:00:00 [facility] [place] Weight 2018-09-06 15:07:00 [facility] BMI Calculated 2018-09-06 15:07:00 [facility] [place] Height 2018-09-06 15:07:00 177.8 cm [facility] [place] Temperature Oral (F) 2018-09-06 15:07:00 97.8 F [facility] Diastolic (mm Hg) 2014-02-15 10:07:00 [facility] [place] Heart Rate 2014-02-15 10:07:00 [facility] [place] Systolic (mm Hg) 2014-02-15 10:07:00 [facility] Respitory Rate 2014-02-15 10:07:00 [facility] Respitory Rate 2014-02-15 09:12:00 [facility] [place] Diastolic (mm Hg) 2014-02-15 09:12:00 [facility] [place] Systolic (mm Hg) 2014-02-15 09:12:00 [facility] [place] Heart Rate 2014-02-15 09:12:00 [facility] Respitory Rate 2014-02-15 08:12:00 [facility] [place] Diastolic (mm Hg) 2014-02-15 08:12:00 [facility] Heart Rate 2014-02-15 08:12:00 [facility] Systolic (mm Hg) 2014-02-15 08:12:00 [facility] Height 2014-02-15 04:58:00 175.26 cm [facility] [place] BMI Calculated 2014-02-15 04:58:00 [facility] Weight 2014-02-15 04:58:00 [facility] [place] Temperature Oral (F) 2014-02-15 04:58:00 99.2 F [facility] Temperature Oral (F) 2013-11-20 11:01:00 98.6 F [facility] Heart Rate 2013-11-20 11:01:00 [facility] Respitory Rate 2013-11-20 11:01:00 [facility] Systolic (mm Hg) 2013-11-20 11:01:00 [facility] [place] Diastolic (mm Hg) 2013-11-20 11:01:00 [facility] [place] Systolic (mm Hg) 2013-11-20 07:24:00 [facility] Diastolic (mm Hg) 2013-11-20 07:24:00 [facility] [place] Heart Rate 2013-11-20 07:24:00 [facility] Respitory Rate 2013-11-20 07:24:00 [facility] [place] Weight 2013-11-20 01:01:00 [facility] Height 2013-11-20 01:01:00 175.26 cm [facility] BMI Calculated 2013-11-20 01:01:00 [facility] Diastolic (mm Hg) 2013-11-20 01:01:00 Mem orial [facility] Systolic (mm Hg) 2013-11-20 01:01:00 Ant rial [place] Respitory Rate 2013-11-20 01:01:00 Memori al [place] Heart Rate 2013-11-20 01:01:00 [facility] [place] Temperature Oral (F) 2013-11-20 01:01:00 98.7 F [facility] Procedures Procedure Date / Time Performing Clinician Source Performed ASSIGNMENT OF BENEFITS 2021-06-22 17:22:25 Doctor Unassigned, No Name CONSENT/REFUSAL FOR 2021-06-22 17:03:14 Doctor 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, 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 METABOLIC PANEL 2021-04-04 05:37:00 Ros Oseguera NPI:1 [id number] ([id number]) LACTIC ACID WHOLE BLOOD 2021-04-04 05:36:00 oRs Oseguera NPI :[id number] 2021-04-04 00:00:00 [facility] [id number] 2021-03-13 00:00:00 [facility] [id number] 2021-03-13 00:00:00 [facility] [id number] 2021-03-13 00:00:00 [facility] [id number] 2021-03-13 00:00:00 [facility] [id number] 2021-03-13 00:00:00 [facility] [id number] 2021-03-13 00:00:00 [facility] [id number] 2021-03-13 00:00:00 [facility] XR CHEST 1 VW 2021-02-16 23:15:19 Kristopher Busch NPI:[id number] CT HEAD WO CONTRAST 2021-02-16 23:12:17 Kristopher Busch NPI:[id number] URINALYSIS 2021-02-16 22:52:00 Kristopher Busch NPI:[id number] TROPONIN I 2021-02-16 22:49:00 Kristopher Busch NPI:[id number] COMP. 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 I:[id number] DIAGNOSIS AND TREATMENT Name CT ABDOMEN PELVIS W WO 2020-11-27 15:08:16 Philippe Thomas CONTRAST HB CREATININE BLOOD 2020-11-27 14:48:00 Philippe Thomas 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 I:[id number] NOTICE OF BILLING 2020-11-27 13:26:33 Doctor Unassigned, No PRACTICES FOR MEDICARE Name PATIENTS [facility] PATIENT FINANCIAL 2020-11-27 13:26:18 Doctor Unassigned, No POLICY Name NO SHOW OR MISSED 2020-11-27 13:26:02 Doctor Unassigned, No APPOINTMENT POLICY Name ACKNOWLEDGEMENT NOTICE OF PRIVACY 2020-11-27 13:25:51 Doctor Unassigned, No PRACTICES Name CONSENT/REFUSAL FOR 2020-11-27 13:25:39 Doctor Unassigned, No 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 I:[id number] DIAGNOSIS AND TREATMENT Name ASSIGNMENT OF BENEFITS 2020-11-27 13:25:27 Doctor Unassigned, No Name WRIST W CONTRAST MRI 2020-11-06 16:37:53 Avinash Rudd 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 I:[id number] WRIST ARTHROGRAM DX 2020-11-06 15:43:00 Avinash Rudd NPI :[id number] Shoulder repair [facility] Inguinal herniotomy [facility] Hiatal herniorrhaphy [facility] Cholecystectomy [facility] Appendectomy [facility] Encounters Start End Encounter Admission Attending Care Care Encounter Source Date/Time Date/Time Type Type Clinicians Facility Department ID 2021-08-14 Outpatient Meerasahib, HCACL [facility] [id number] [facility] 16:29:15 Festus 62 [facility] 2021-04-25 Outpatient Voloyiannis HCACL [facility] [id number] [facility] 15:56:20 , Theodoros 57 [facility] 2021-03-25 Emergency [facility] [id number] NPI:183 01:27:03 [id number] Inpatient Voloyiannis HCACL DAYS [id number] [facility] 14:00:00 , Theodoros [id number] [facility] 2021-03-11 Inpatient Voloyiannis [facility] DAYS [id number] [facility] 08:00:00 , Theodoros [id number] [facility] 2020-11-07 Outpatient VIKY [facility] [id number] NPI:152 11:19:56 ROBERT [id number] AVINASH 2020-10-22 Outpatient [facility] [id number] NPI:152 11:48:01 [id number] 2020-10-18 Outpatient [facility] [id number] NPI:152 15:28:06 [id number] 2019-10-09 Inpatient HCAKW HUMBERTO [id number] [facility] 14:58:00 [id number] [facility] 2017-06-10 Inpatient CARIE Hill DIAB [id number] [facility] 14:30:00 Ingrid Ashley [facility] 2017-06-10 Inpatient CARIE Hill DIAB [id number] [facility] 14:30:00 Ingrid [id number] [facility] 2021-08-14 2021-08-14 Outpatient TORREY Tapia [facility] [id number] [facility] 14:41:00 14:41:00 [facility] [id number] [facility] 2021-06-22 2021-06-22 Emergency X WYATT [facility] ERT [id number] NPI:183 11:14:00 11:31:00 JENNA [id number] 1 2021-06-22 2021-06-22 Emergency Wyatt SDASHLEY 1.2.840.114 [id number] NPI:183 11:14:00 11:31:00 Jenna SCHNEIDER 350.1.13.10 [id number] [place] 4.2.7.2.686 [place] [id number] [id number] 2021-06-22 2021-06-22 Telephone INGRID Cho 1.2.350.014 [id number] NPI:183 00:00:00 00:00:00 Shannon DAVIS 350.1.13.10 [id number] [facility] 4.2.7.2.686 [id number] 2021-04-25 2021-04-25 Outpatient EL Glenis [facility] CD4 [id number] [facility] 08:57:00 08:57:00 , Edin [id number] [facility] 2021-04-09 2021-04-09 Outpatient MONIK RUGGIERO [id number] Memoria 09:00:00 09:00:00 03 nadeem Lu 2021-04-04 2021-04-05 Inpatient EM Glenis [facility] MEDI.01 CD47 [id number] [facility] 13:41:00 18:30:00 , Edin [id number] [facility] 2021-04-04 2021-04-05 Inpatient EM Glenis [facility] MEDI.01 G001 [id number] [facility] 13:41:00 18:30:00 , Theodoros 06 Cl [facility] 2021-04-03 2021-04-04 Emergency X [facility] [id number] NPI:183 23:23:00 11:57:00 ROS [id number] 1 2021-04-03 2021-04-04 Emergency [facility] 1.2.784.038 [id number] NPI:183 23:23:00 11:57:00 Ros SCHNEIDER 350.1.13.10 [id number] [place] 4.2.7.2.686 [place] [id number] [id number] 2021-04-03 2021-04-03 Nurse INGRID Martines 1.2.840.114 [id number] NPI:183 00:00:00 00:00:00 Triage Vicenta DAVIS 350.1.13.10 [id number] [id number] 019 2021-03-13 2021-03-20 Inpatient EL Glenis [facility]CL DAYS [id number] [facility] 05:46:00 17:31:00 , Thejtoros 07 [facility] 2021-02-19 2021-02-20 Between nullFlavo [facility] [id number] Memoria 15:36:18 15:36:18 Visit r Primary 12 l Care [facility] 2021-02-18 2021-02-19 Between nullFlavo [facility] [id number] Memoria 21:29:57 21:29:57 Visit r Primary 11 l Care [facility] 2021-02-16 2021-02-16 Emergency [facility] [id number] NPI:183 17:16:00 19:10:00 Kristopher Schneider 350.1.13.10 1 [id number] [place] 4.2.7.2.686 [place] [id number] [id number] 2021-01-31 2021-02-01 Outpatient nullFlavo [facility] [id number] Memoria 15:15:00 04:59:59 r Primary 04 [facility] 2021-01-08 2021-01-09 Outpatient nullFlavo [facility] [id number] Memoria 19:30:00 04:59:59 r Primary 02 [facility] 2021-01-08 2021-01-08 [place] [id number] Memoria 19:00:00 19:00:00 Pre-Reg r Primary 01 [facility] 2021-01-01 2021-01-02 Between nullFlavo [facility] [id number] Memoria 17:52:28 17:52:28 Visit r Primary 10 [facility] 2020-12-30 2021-01-01 Phone nullFlavo [facility] [id number] Memoria 20:13:07 04:59:59 Message r Primary 01 [facility] 2020-11-27 2020-11-27 [facility] 1.2.840.114 [id number] NPI:183 08:00:00 23:59:00 Encounter Philippe wilkins [place] 350.1.13.10 [id number] [place] 4.2.7.2.686 [place] [id number] 2020-11-27 2020-11-27 Outpatient R [facility] [id number] NPI:183 00:00:00 00:00:00 PHILIPPE Wilkins [id number] 2020-11-11 2020-11-11 Office MARTITA Maldonado [facility] 1.2.840.114 [id number] NPI:152 10:32:45 13:45:28 Visit [facility] 350.1.13.58 8 [id number] MEDICAL 9.2.7.2.686 [place] 4 [id number] [id number] 2020-11-11 2020-11-11 Office MARTITA Maldonado [facility] 1.2.840.114 [id number] 10:32:45 13:45:28 Visit [facility] 350.1.13.58 MEDICAL 9.2.7.2.686 [place] 3 [id number] [id number] 2020 2020 Telemedici Viky [facility] 1.2.840.114 [id number] NPI:152 13:58:02 14:16:31 ne Robert [place] 350.1.13.58 8 [id number] [facility] 9.2.7.2.686 [place] 0 [id number] [id number] 2020 2020 Telemedici Viky [facility] 1.2.840.114 [id number] 13:58:02 14:16:31 ne Robert [place] 350.1.13.58 [facility] 9.2.7.2.686 [place] 5 [id number] [id number] 2020-11-06 2020-11-07 Outpt Diag nullFlavo [facility] [id number] Memoria 15:34:00 04:59:00 Services r Outpatient 00 l Imaging [facility] 2020-10-23 2020-10-23 EXT [facility] OP Viky [facility] 1.2.840.114 1 [id number] NPI:152 00:00:00 00:00:00 [facility] 350.1.13.58 8 [id number] [place] 9.2.7.2.686 [id number] [id number] 2020-10-22 2020-10-22 Office Viky [facility] 1.2.840.114 [id number] NPI:152 10:49:42 12:07:21 Visit Robert [place] 350.1.13.58 8 [id number] [facility] 9.2.7.2.686 [place] 1 [phone] [id number] 2020-10-22 2020-10-22 Office Viky [facility] 1.2.840.114 [id number] 10:49:42 12:07:21 Visit Robert, [place] 350.1.13.58 [facility] 9.2.7.2.686 [place] 1 [id number] [id number] 2020-10-14 2020-10-16 Phone nullFlavo [facility] [id number] Memoria 16:55:45 04:59:59 Message r Primary 00 l Care [facility] 2020-10-09 2020-10-10 Outpatient nullFlavo [facility] [id number] Memoria 19:30:00 04:59:[address] [facility] 2020-06-28 2020-06-28 Outpatient CARIE Pizarro JULIA [id number] [facility] 14:00:00 14:00:00 Jazzmine [id number] [facility] 2020-06-02 2020-06-02 Emergency nullFlavo [facility] [id number] Memoria 17:35:40 23:14:00 r [place] 07 l [facility] 2019-05-20 2019-05-25 Inpatient nullFlavo [facility] [id number] Memoria 06:34:51 00:10:00 r [place] 06 l [facility] 2019-05-20 2019-05-20 Inpatient E MHNE MHNE 7506 [facility]NE 04:19:00 00:34:00 2018-09-06 2018-09-06 Emergency nullFlavo [facility] [id number] Memoria 15:04:00 18:40:00 r [place] 05 l [facility] 2018-09-06 2018-09-06 Emergency E MHNE MHNE 7505 MHNE 10:04:00 10:04:00 2014-02-15 2014-02-15 EC nullFlavo [facility] [id number] Memoria 04:57:00 10:11:00 Emergency r [place] 04 l [facility] 2013-11-20 2013-11-20 EC nullFlavo [facility] [id number] Memoria 01:00:00 11:03:00 Emergency r [place] 03 [facility] Results Test Description Test Time Test Comments Results Result Sour e Comments - CT ABD PELVIS 2021-08-14 W/CONT 00:00:00 [facility] 1965 Sex: M Name: HARISH MONZON [facility] Delisa Smith : 1965 Age/S: 55 / M [address] [place] [address] Unit #: [id number] Loc: REBECCA [place] [address] Phys: Festus Tapia MD Acct: [id number] Dis Date: Status: REG CLI PHONE #: [phone] Exam Date: 08/14/2021 1557 FAX #: [phone] Reason: 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 TECHNIQUE: Imaging protocol: Computed tomography of the abdomen and pelvis with contrast. Radiation optimization: All CT scans at this facility use at least one of these dose optimization techniques: automated exposure control; mA and/or kV adjustment per patient size (includes targeted exams where dose is matched to clinical indication); or iterative reconstruction. Contrast material: ISOVUE; Contrast volume: 100 ml; Contrast route: INTRAVENOUS (IV); Other contrast: Oral, OMNIPAQUE, 500; COMPARISON: CT ABD PELVIS W/CONT 04/25/2021 10:[address] Radiation Dose: DLP = 490.1 mGy-cm FINDINGS: Lungs: Visualized lung bases are clear. Liver: Unremarkable. Gallbladder and bile ducts: Prior cholecystectomy. Pancreas: Unremarkable. Spleen: Unremarkable. Adrenal glands: Normal. No mass. Kidneys and ureters: Right kidney upper pole benign simple cyst. No nephrolithiasis. Stomach and bowel: Mild distal colon diverticulosis. No obstruction. Small duodenal diverticulum. Intraperitoneal space: No free air. No significant fluid collection. Vasculature: Tiny residual clot is seen involving the superior mesenteric vein. Interval resolution of adjacent prior noted fat stranding. Lymph nodes: No enlarged lymph nodes. Urinary bladder: Unremarkable as visualized. Reproductive: Unremarkable as visualized. Bones/joints: Age related degenerative changes. No acute fracture. Stable nonaggressive appearing lucent lesion in the left posterior iliac bone. Soft tissues: Prior postoperative changes involving the anterior abdominal wall. 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 No drainable fluid collection is seen. IMPRESSION: 1. Tiny residual clot involving the superior mesenteric vein. Interval resolution of adjacent prior noted fat stranding. 2. There is increased bulging involving the right upper anterior abdominal wall with thinning of musculature. No drainable fluid collection is seen. COMMENTS: Consistent with the [place] [employer]'s Incidental Findings Committee white paper (J Am Natalee Radiol 2018): Any incidental renal lesion less than 1 cm or classified as too small to characterize, or any incidental cystic renal lesion characterized as simple-appearing, is likely benign. No follow-up imaging is recommended for these lesions per consensus recommendations based on imaging criteria. at 1628 Reported and signed by: Joshua Tanner D.O. CC: Festus Tapia MD; Edin Galvin MD Technologist:Sergio Christianson, RT(R)(CT) CTDI: DLP: Trnscb Date/Time: 08/14/2021 (1627) [email or web address] Orig Print D/T: S: 08/14/2021 (1627) PAGE 2 Signed Report - CT ABD PELVIS 2021-04-25 W/CONT 00:00:00 [facility] DELISA HOPEName: HARISH MONZON : 1965 Sex: M Name: HARISH MONZON [facility] [place] : 1965 Age/S: 55 / M [address] [place] [address] Blvd Unit #: [id number] Loc: PauloREBECCA [address] Phys: Edin Galvin MD Acct: [id number] Dis Date: Status: REG CLI PHONE #: [phone] Exam Date: 04/25/2021 1036 FAX #: [phone] 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 Radiation optimization: All CT scans at this facility use at least one of these dose optimization techniques: automated exposure control; mA and/or kV adjustment per patient size (includes targeted exams where dose is matched to clinical indication); or iterative reconstruction. Contrast material: ISOVUE 300; Contrast volume: 100 ml; Contrast route: INTRAVENOUS (IV); Other technique: CT DLP: 371.9 mGy-cm COMPARISON: CT ABDOMEN W/CONTRAST 04/04/2021 1:20 AM FINDINGS: Lungs: Unremarkable. Liver: Unremarkable. No mass. Gallbladder and bile ducts: Prior cholecystectomy. Pancreas: Unremarkable. No ductal dilation. Spleen: Unremarkable. No splenomegaly. Adrenal glands: Normal. No mass. Kidneys and ureters: 3.0 cm right upper pole renal cyst. No urinary calculi or hydronephrosis. Stomach and bowel: Duodenal diverticulum. Left colonic diverticulosis without evidence of acute diverticulitis. The large and small bowel are normal in caliber without wall thickening. Stomach appears unremarkable. Appendix: Prior appendectomy. Intraperitoneal space: Mild stranding noted in the small bowel mesentery. No organized fluid collection. Vasculature: Interval progression of thrombus in the superior mesenteric vein (coronal image 35), now with mild adjacent stranding suggestive of a thrombophlebitis. Splenic vein, inferior mesenteric vein, and main portal vein appear patent. Retroaortic left renal vein. No aortic aneurysm. Lymph nodes: Unremarkable. No enlarged lymph nodes. Urinary bladder: Unremarkable. No significant wall thickening. Reproductive: Unremarkable. Bones/joints: Stable nonaggressive appearing lucent lesion in the left iliac crest. Mild degenerative changes in the spine. 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 Soft tissues: Prior ventral abdominal hernia repair. There has been interval placement of a pigtail drainage catheter within the previous periumbilical subcutaneous fluid collection with subsequent resolution of the collection. There has been interval decrease in size of the right ventral fluid collection, now measuring approximately 3.8 x 0.8 cm compared to 6.7 x 1.6 cm on the prior exam (series 3, image 92). There has been interval resolution of the left ventral fluid collection which previously communicated with the periumbilical collection. There is persistent mild fluid density noted within the anterior abdominal wall musculature without evidence of discrete fluid collection. Mild stranding is noted along the ventral abdominal subcutaneous fat anterior to the hernia repair, similar to prior exam. IMPRESSION: 1. Interval resolution of previously drained periumbilical fluid collection. There has also been interval resolution or decrease in size of the previous additional smaller ventral abdominal fluid collections. There remains persistent fluid density along the anterior abdominal wall musculature and subcutaneous stranding, though without new or enlarging organized collection identified. 2. Interval progression of superior mesenteric venous thrombus, now with adjacent stranding suggestive of thrombophlebitis. Mild stranding is also noted in the small bowel mesentery suggestive of edema. 3. Additional chronic findings including right renal cyst and colonic diverticulosis. COMMENTS: Consistent with the [place] [employer]'s Incidental Findings Committee white paper (J Am Natalee Radiol 2018): Any incidental renal lesion less than 1 cm or classified as too small to characterize, or any incidental cystic renal lesion characterized as simple-appearing, is likely benign. No follow-up imaging is recommended for these lesions per consensus recommendations based on imaging criteria. at 2105 Reported and signed by: Jad Chin M.D. 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 RT(R)(CT) CTDI: DLP: Trnscb Date/Time: 04/25/2021 (1555) [email or web address] Orig Print D/T: S: 04/25/2021 (5186) PAGE 3 Signed Report - RICHARD BAILEY 2021-04-06 TISSUE PERC 00:00:00 [facility] 1965 Sex: M FAX: hCen Segalbrigette [phone] [place]: St: DIS FAX: Chrissie Baker [phone] Name: HARISH MONZON [facility] : 1965 Age/S: 55/M [address] [place] [address] Unit #: [id number] Loc: G.544 [place] [address] Phys: Chrissie Baker Acct: [id number] Dis Date: [id number] Status: DIS IN PHONE #: [phone] Exam Date: 04/04/2021 1616 FAX #: [phone] Reason: EXAMS: CPT CODE: [id number] SP DRN SOFT TISSUE PERC 42582 PROCEDURE INFORMATION: Exam date and time: 04/04/2021 3:41 PM Age: 55 years old PROCEDURE: 1. Percutaneous placement of a drainage catheter within an abdominal wall fluid collection CLINICAL INDICATION: 55-year-old male with abdominal wall fluid collection presents for percutaneous drainage COMPARISON: CT abdomen on 04/04/2021 CONSENT: The procedure, risks, benefits, and alternatives were discussed with the patient and written informed consent was obtained. A "timeout" performed per protocol prior to the procedure. TECHNIQUE: dehydration plant operator: Dr. Gr Preoperative diagnosis: Abdominal wall fluid collection Postoperative diagnosis: same Estimated blood loss: Less than 10 cc Preprocedure ultrasound was used to demarcate the hypoechoic periumbilical abdominal wall fluid collection. The midline abdominal wall of the patient was prepped and draped using sterile technique. The overlying skin was anesthetized with 1% lidocaine. Using sterile ultrasound guidance, a 12 Divehi multipurpose catheter was advanced into the abdominal wall fluid collection using trocar technique. Approximately 60 mL of purulent fluid was aspirated. The catheter was sutured to the skin, connected to a suction bag, and sterile dressings applied. Postprocedure imaging demonstrated no immediate complication with adequate position of the catheter. The patient was stable throughout the procedure. IMPRESSION: Successful percutaneous placement of a drainage catheter within an abdominal wall fluid collection using ultrasound guidance. at 1739 Reported and signed by: Aldo Gr M.D. CC: Edin Galvin MD; Chrissie AGUIRRE Technologist: Alicja JIMENEZ(R) Trnscrd Date/Time/By: 04/06/2021 (9447) : By: [email or web address] Orig Print D/T: S: 04/06/2021 (1518) PAGE 1 Signed Report COMPREHENSIVE METABOLIC PANEL 2021-04-04 15:17:00 Test Item Value Reference Range Interpretation Comme nts SODIUM (test code = NA) 138 mEq/L 134-147 N POTASSIUM (test code = K) 3.5 mEq/L 3.4-5.0 N CHLORIDE (test code = CL) 112 mEq/L 100-108 H CARBON DIOXIDE (test code = CO2) 20 mEq/l 21-33 L ANION GAP (test code = GAP) 10 0-20 N GLUCOSE (test code = GLU) 82 mg/dL 70-110 N BLOOD UREA NITROGEN (test code = 8 mg/dL 7-18 N BUN) GLOMERULAR FILTRATION RATE (test 172.6 90-95 H Units of measure = code = GFR) ml/min/1.73 m2 CREATININE (test code = CREAT) 0.5 mg/dL 0.6-1.3 L TOTAL PROTEIN (test code = PROT) 4.8 g/dL 6.4-8.2 L ALBUMIN (test code = ALB) 2.00 g/dL 3.4-5.0 L CALCIUM (test code = CA) 6.5 mg/dL 8.0-10.5 L BILIRUBIN TOTAL (test code = BILT) 0.60 mg/dL 0.0-1.0 N SGOT/AST (test code = AST) 16 IUnit/L 15-37 N SGPT/ALT (test code = ALT) 13 IUnit/L 30-65 L ALKALINE PHOSPHATASE TOTAL (test 74 IUnit/L 20-125 N code = ALKP) CBC W/AUTO [id number] 14:57:00 Test Item Value Reference Range Interpretation Comments WHITE BLOOD CELL (test code = 3.2 x10 3/uL 4.5-11.0 L WBC) RED BLOOD CELL (test code = 2.87 x10 6/uL 4.00-5.60 L RBC) HEMOGLOBIN (test code = HGB) 8.6 g/dL 12.5-16.9 L HEMATOCRIT (test code = HCT) 25.7 % 37.5-50.7 L MEAN CELL VOLUME (test code = 89.5 fL 81.0-99.0 N MCV) MEAN CELL HGB (test code = MCH) 30.0 pg 27.0-33.0 N MEAN CELL HGB CONCETRATION 33.5 g/dL 33.0-37.0 N (test code = MCHC) RED CELL DISTRIBUTION WIDTH CV 13.8 % 11.5-14.5 N (test code = RDW) RED CELL DISTRIBUTION WIDTH SD 45.7 fL 37.0-54.0 N (test code = RDW-SD) PLATELET COUNT (test code = 222 x10 3/uL 150-400 N PLT) MEAN PLATELET VOLUME (test code 8.9 fL 7.0-9.0 N = MPV) NEUTROPHIL % (test code = NT%) 64.2 % 56.0-77.0 N IMMATURE GRANULOCYTE % (test 0.6 % 0.0-2.0 N code = IG%) LYMPHOCYTE % (test code = LY%) 18.4 % 14.0-32.0 N MONOCYTE % (test code = MO%) 11.5 % 4.8-9.0 H EOSINOPHIL % (test code = EO%) 5.0 % 0.3-3.7 H BASOPHIL % (test code = BA%) 0.3 % 0.0-2.0 N NUCLEATED RBC % (test code = 0.0 % 0-0 N NRBC%) NEUTROPHIL # (test code = NT#) 2.06 x10 3/uL 2.0-7.6 N IMMATURE GRANULOCYTE # (test 0.02 x10 3/uL 0.00-0.03 N code = IG#) LYMPHOCYTE # (test code = LY#) 0.59 x10 3/uL 1.0-3.8 L MONOCYTE # (test code = MO#) 0.37 x10 3/uL 0.1-0.8 N EOSINOPHIL # (test code = EO#) 0.16 x10 3/uL 0.0-0.2 N BASOPHIL # (test code = BA#) 0.01 x10 3/uL 0.0-0.2 N NUCLEATED RBC # (test code = 0.00 x10 3/uL 0.0-0.1 N NRBC#) MANUAL DIFF REQUIRED (test code NO = MDIFF) COMP. METABOLIC PANEL (26169)2021-04-04 06:13:34 Test Item Value Reference Range Interpretation Comments NA (test code = 129 mmol/L 135-145 L 8346260567) K (test code = 4.5 mmol/L 3.5-5.0 0868457495) CL (test code = 98 mmol/L 98-108 7818960086) CO2 TOTAL (test code = 22 mmol/L 23-31 L 0386163086) AGAP (test code = 2-16 9964221816) BUN (test code = 18 mg/dL 7-23 1339526872) GLUCOSE (test code = 201 mg/dL 70-110 H 6253744909) CREATININE (test code = 0.94 mg/dL 0.60-1.25 9332724979) TOTAL BILI (test code = 0.9 mg/dL 0.1-1.1 8037639791) CALCIUM (test code = 9.1 mg/dL 8.6-10.6 1769645493) T PROTEIN (test code = 6.4 g/dL 6.3-8.2 5042618708) ALBUMIN (test code = 3.1 g/dL 3.5-5.0 L 7168761193) ALK PHOS (test code = 102 U/L 34-122 8261832698) ALTv (test code = 19 U/L 5-50 1742-6) AST(SGOT) (test code = 24 U/L 13-40 4254354320) eGFR (test code = mL/min/1.73m2 4519166320) STEWART (test code = STEWART) Association of Glomerular Filtration Rate (GFR) and Staging of Kidney Disease* + --+ --+ ------+| GFR (mL/min/1.73 m2) ?| With Kidney Damage ?| ?Without Kidney Damage+ --------+ --------+ +| ?>90 ?| ?Stage one ?| ? Normal ?+ ---+ ---+ -------+| ?60-89 ?| ?Stage two ?| ? Decreased GFR ? + --+ --+ ------+| ?30-59 ?| ?Stage three ?| ? Stage three ? + --+ --+ ------+| ?15-29 ?| ?Stage four ? | ? Stage four ?+ ---+ ---+ -------+| ?<15 (or dialysis) ? ?| ?Stage five ? | ? Stage five ?+ ---+ ---+ -------+ *Each stage assumes the associated GFR level has been in effect for at least three months. ?Stages 1 to 5, with or without kidney disease, indicate chronic kidney disease. Notes: Determination of stages one and two (with eGFR >59mL/min/1.73 m2) requires estimation of kidney damage for at least three months as defined by structural or functional abnormalities of the kidney, manifested by either:Pathological abnormalities or Markers of kidney damage (including abnormalities in the composition of the blood or urine or abnormalities in imaging tests). Lab Interpretation Abnormal (test code = 78201-3) NPI:[id number] 06:13:08 Test Item Value Reference Range Interpretation Comments LIPASE (test code = 5069945475) 774 U/L 0-220 H Lab Interpretation (test code = Abnormal 84745-7) NPI:[id number] WITH [id number] 06:00:45 Test Item Value Reference Range Interpretation Comments WBC (test code = See_Comment [Automated 4390-2) message] The sy stem which generated this result transmitted reference range : 4.20 - 10.70 10*3/?L. The reference range was not used to interpret this result as normal/abnormal . RBC (test code = See_Comment L [Automated 789-8) message] The sy stem which generated this result transmitted reference range : 4.26 - 5.52 10*6/?L. The reference range was not used to interpret this result as normal/abnormal . HGB (test code = 11.1 g/dL 12.2-16.4 L 718-7) HCT (test code = 33.5 % 38.4-49.3 L 4544-3) MCV (test code = 86.6 fL 81.7-95.6 787-2) MCH (test code = 28.7 pg 26.1-32.7 785-6) MCHC (test code = 33.1 g/dL 31.2-35.0 786-4) RDW-SD (test code = 42.8 fL 38.5-51.6 38954-6) RDW-CV (test code = 13.5 % 12.1-15.4 788-0) PLT (test code = See_Comment H [Automated 777-3) message] The sy stem which generated this result transmitted reference range : 150 - 328 10*3/ ?L. The reference r hima was not used to interpret this result as normal/abnormal . MPV (test code = 9.5 fL 9.8-13.0 L 75413-7) NRBC/100 WBC (test See_Comment [Automat ed code = 2002370782) message] The system which generated this result transmitted reference range : 0.0 - 10.0 /100 WBCs. The refer ence range was not u sed to interpret th is result as normal/abnormal . NRBC x10^3 (test code <0.01 See_Comment [Auto mated = 6468093501) message] The s ystem which generated this result transmitted reference range : 10*3/?L. The reference range was not used to interpret this result as normal/abnormal . GRAN MAT (NEUT) % 66.4 % (test code = 770-8) IMM GRAN % (test code 0.60 % = 0450114881) LYMPH % (test code = 19.1 % 736-9) MONO % (test code = 12.0 % 5905-5) EOS % (test code = 1.5 % 713-8) BASO % (test code = 0.4 % 706-2) GRAN MAT x10^3(ANC) 3.59 10*3/uL 1.99-6.95 (test code = 3650805622) IMM GRAN x10^3 (test 0.03 10*3/uL 0.00-0.06 code = 1489978063) LYMPH x10^3 (test code 1.03 10*3/uL 1.09-3.23 L = 731-0) MONO x10^3 (test code 0.65 10*3/uL 0.36-1.02 = 742-7) EOS x10^3 (test code = 0.08 10*3/uL 0.06-0.53 711-2) BASO x10^3 (test code <0.03 0.01-0.09 = 704-7) Lab Interpretation Abnormal (test code = 94949-5) NPI:[id number] 12:02:00 Test Item Value Reference Range Interpretation Comments GLUCOSE BEDSIDE (test 207 MG/DL 70-110 H Perfor med by certified code = GLUBED) 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 at [facility] [id number] 08:32:00 Test Item Value Reference Range Interpretation Comments PHOSPHOROUS (test code = PHOS) 2.8 MG/DL 2.5-4.9 [id number] 08:32:00 Test Item Value Reference Range Interpretation Comments MAGNESIUM (test code = MAG) 1.96 mg/dL 1.80-2.40 N BASIC METABOLIC [id number] 08:32:00 Test Item Value Reference Range Interpretation Comments SODIUM (test code = NA) 136 mEq/L 134-147 N POTASSIUM (test code = 3.9 mEq/L 3.4-5.0 N K) CHLORIDE (test code = 104 mEq/L 100-108 N CL) CARBON DIOXIDE (test 25 mEq/l 21-33 N code = CO2) ANION GAP (test code = 11 0-20 N GAP) GLUCOSE (test code = 232 mg/dL 70-110 H GLU) BLOOD UREA NITROGEN 16 mg/dL 7-18 N (test code = BUN) GLOMERULAR FILTRATION 117.1 90-95 H Units of measure = RATE (test code = GFR) ml/mi n/1.73 m2 CREATININE (test code = 0.7 mg/dL 0.6-1.3 N CREAT) CALCIUM (test code = 8.1 mg/dL 8.0-10.5 N CA) CBC W/AUTO [id number] 08:13:00 Test Item Value Reference Range Interpretation Comments WHITE BLOOD CELL (test code = 7.0 x10 3/uL 4.5-11.0 N WBC) RED BLOOD CELL (test code = 2.88 x10 6/uL 4.00-5.60 L RBC) HEMOGLOBIN (test code = HGB) 8.5 g/dL 12.5-16.9 L HEMATOCRIT (test code = HCT) 25.2 % 37.5-50.7 L MEAN CELL VOLUME (test code = 87.5 fL 81.0-99.0 N MCV) MEAN CELL HGB (test code = MCH) 29.5 pg 27.0-33.0 N MEAN CELL HGB CONCETRATION 33.7 g/dL 33.0-37.0 N (test code = MCHC) RED CELL DISTRIBUTION WIDTH CV 13.7 % 11.5-14.5 N (test code = RDW) PLATELET COUNT (test code = 213 x10 3/uL 150-400 N PLT) NEUTROPHIL % (test code = NT%) 86.7 % 56.0-77.0 H LYMPHOCYTE % (test code = LY%) 6.4 % 14.0-32.0 L NEUTROPHIL # (test code = NT#) 6.05 x10 3/uL 2.0-7.6 N LYMPHOCYTE # (test code = LY#) 0.45 x10 3/uL 1.0-3.8 L MANUAL DIFF REQUIRED (test code NO = MDIFF) RED CELL DISTRIBUTION WIDTH SD 43.9 fL 37.0-54.0 N (test code = RDW-SD) MEAN PLATELET VOLUME (test code 10.3 fL 7.0-9.0 H = MPV) IMMATURE GRANULOCYTE % (test 2.6 % 0.0-2.0 H code = IG%) MONOCYTE % (test code = MO%) 3.9 % 4.8-9.0 L EOSINOPHIL % (test code = EO%) 0.1 % 0.3-3.7 L BASOPHIL % (test code = BA%) 0.3 % 0.0-2.0 N NUCLEATED RBC % (test code = 0.0 % 0-0 N NRBC%) IMMATURE GRANULOCYTE # (test 0.18 x10 3/uL 0.00-0.03 H code = IG#) MONOCYTE # (test code = MO#) 0.27 x10 3/uL 0.1-0.8 N EOSINOPHIL # (test code = EO#) 0.01 x10 3/uL 0.0-0.2 N BASOPHIL # (test code = BA#) 0.02 x10 3/uL 0.0-0.2 N NUCLEATED RBC # (test code = 0.00 x10 3/uL 0.0-0.1 N NRBC#) GLUCOSE [id number] 06:03:00 Test Item Value Reference Range Interpretation Comments GLUCOSE BEDSIDE (test 223 MG/DL 70-110 H Perfor med by certified code = GLUBED) 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 at [facility] GLUCOSE [id number] 01:07:00 Test Item Value Reference Range Interpretation Comments GLUCOSE BEDSIDE (test 240 MG/DL 70-110 H Perfor med by certified code = GLUBED) 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 at [facility] GLUCOSE [id number] 17:21:00 Test Item Value Reference Range Interpretation Comments GLUCOSE BEDSIDE (test 160 MG/DL 70-110 H Perfor med by certified code = GLUBED) 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 at [facility] GLUCOSE [id number] 12:34:00 Test Item Value Reference Range Interpretation Comments GLUCOSE BEDSIDE (test 116 MG/DL 70-110 H Perfor med by certified code = GLUBED) 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 at [facility] BASIC METABOLIC [id number] 08:24:00 Test Item Value Reference Range Interpretation Comments SODIUM (test code = NA) 136 mEq/L 134-147 N POTASSIUM (test code = 3.6 mEq/L 3.4-5.0 N K) CHLORIDE (test code = 103 mEq/L 100-108 N CL) CARBON DIOXIDE (test 24 mEq/l 21-33 N code = CO2) ANION GAP (test code = 12 0-20 N GAP) GLUCOSE (test code = 99 mg/dL 70-110 N GLU) BLOOD UREA NITROGEN 13 mg/dL 7-18 N (test code = BUN) GLOMERULAR FILTRATION 117.1 90-95 H Units of measure = RATE (test code = GFR) ml/mi n/1.73 m2 CREATININE (test code = 0.7 mg/dL 0.6-1.3 N CREAT) CALCIUM (test code = 7.9 mg/dL 8.0-10.5 L CA) [id number] 08:24:00 Test Item Value Reference Range Interpretation Comments PHOSPHOROUS (test code = PHOS) 2.0 MG/DL 2.5-4.9 L [id number] 08:24:00 Test Item Value Reference Range Interpretation Comments MAGNESIUM (test code = MAG) 2.02 mg/dL 1.80-2.40 N CBC W/AUTO [id number] 07:50:00 Test Item Value Reference Range Interpretation Comments WHITE BLOOD CELL (test code = 8.4 x10 3/uL 4.5-11.0 N WBC) RED BLOOD CELL (test code = 3.07 x10 6/uL 4.00-5.60 L RBC) HEMOGLOBIN (test code = HGB) 9.0 g/dL 12.5-16.9 L HEMATOCRIT (test code = HCT) 27.6 % 37.5-50.7 L MEAN CELL VOLUME (test code = 89.9 fL 81.0-99.0 MCV) MEAN CELL HGB (test code = MCH) 29.3 pg 27.0-33.0 N MEAN CELL HGB CONCETRATION 32.6 g/dL 33.0-37.0 L (test code = MCHC) RED CELL DISTRIBUTION WIDTH CV 13.7 % 11.5-14.5 N (test code = RDW) RED CELL DISTRIBUTION WIDTH SD 45.0 fL 37.0-54.0 N (test code = RDW-SD) PLATELET COUNT (test code = 176 x10 3/uL 150-400 N PLT) MEAN PLATELET VOLUME (test code 10.2 fL 7.0-9.0 H = MPV) NEUTROPHIL % (test code = NT%) 78.1 % 56.0-77.0 H IMMATURE GRANULOCYTE % (test 1.9 % 0.0-2.0 N code = IG%) LYMPHOCYTE % (test code = LY%) 6.2 % 14.0-32.0 L MONOCYTE % (test code = MO%) 7.6 % 4.8-9.0 N EOSINOPHIL % (test code = EO%) 6.2 % 0.3-3.7 H BASOPHIL % (test code = BA%) 0.0 % 0.0-2.0 N NUCLEATED RBC % (test code = 0.0 % 0-0 N NRBC%) NEUTROPHIL # (test code = NT#) 6.55 x10 3/uL 2.0-7.6 N IMMATURE GRANULOCYTE # (test 0.16 x10 3/uL 0.00-0.03 H code = IG#) LYMPHOCYTE # (test code = LY#) 0.52 x10 3/uL 1.0-3.8 L MONOCYTE # (test code = MO#) 0.64 x10 3/uL 0.1-0.8 N EOSINOPHIL # (test code = EO#) 0.52 x10 3/uL 0.0-0.2 H BASOPHIL # (test code = BA#) 0.00 x10 3/uL 0.0-0.2 N NUCLEATED RBC # (test code = 0.00 x10 3/uL 0.0-0.1 N NRBC#) MANUAL DIFF REQUIRED (test code NO = MDIFF) GLUCOSE [id number] 05:45:00 Test Item Value Reference Range Interpretation Comments GLUCOSE BEDSIDE (test 109 MG/DL 70-110 N Perfor med by certified code = GLUBED) 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 at [facility] GLUCOSE [id number] 00:21:00 Test Item Value Reference Range Interpretation Comments GLUCOSE BEDSIDE (test 124 MG/DL 70-110 H Perfor med by certified code = GLUBED) 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 at [facility] TROP-I HIGH [id number] 20:57:00 Test Item Value Reference Range Interpretation Comments TROP-I HIGH 5 ng/L 0-54 N CAUTION: Units of the SENSITIVITY (test current te st methodology code = TROPIHS) (ng/L) diffe rfrom the prior test methodolog y (ng/mL) by a factor of 1000. 99th Percentile Upper Reference Limit (URL): Females: 34 ng/LMales: 54 ng/L In order to distin guish acute elevations of h igh sensitivitytrop onin from other clinical conditions, the FourthUnive rsa Definition of M yocardial Infarction stre ssesclinical assessment and the demonstration o f a rise and/orfall in s erial troponin result s above the URL. These resu lts were obtained using Siemens [employer]ell[employer] IM TnI Hreagent. Results from di fferent methodologies s hould not becompared to o ne another as quantitative results and URLs mayvary by method. GLUCOSE [id number] 17:59:00 Test Item Value Reference Range Interpretation Comments GLUCOSE BEDSIDE (test 110 MG/DL 70-110 N [facility] med by certified code = GLUBED) 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 at [facility] SURGICAL PATH [id number] 14:53:00 Test Item Value Reference Range Interpretation Comments SURGICAL PATH SPECIMENS (test code = S) RUN DATE: 03/18/21 [place] - LAB PAGE 1 RUN TIME: 1453 Specimen Inquiry RUN USER: INTERFACE PATIENT: HARISH MONZON SANDRA [facility] [place] [place] #: [id number] AGE/SX: 55/M ROOM: [facility] [place] RE03/13/21REG DR: Edin Galvin : 65 BED: 1 DIS: STATUS: ADM IN TLOC: SPEC #: [id number] RECD: 03/14/21 STATUS: NICOLASA ESCUDERO #: [id number] NATALEE: 03/13/21- SUBM DR: Edin Galvin MD ENTERED: 03/14/21 SP TYPE: SURG SPEC OTHR DR: Rahul Ghotra JR, MD, Bhooshan MDORDERED: GROSS ONL 41643, GM L3 00851, GM L4 63864/2, IHC INIT 97943, IHC ADD 92024/2COMMENTS: 1.ABDOMINAL MESH 2.SMALL BOWEL X 2 3.ABDOMINAL WALL SKIN MOLE 4.SKIN COPIES TO: Rahul Ghotra JR, MD [address] [facility] [address] [place] [address] Maurizio Desir MD [address] [facility] [address] [place] [address] Edin Galvin MD [address] [place] [address] [email or web address] PROCEDURES: GROSS ONL 97319 (03/14/21) GM L3 94952 (03/14/21) GM L4 02457 (03/14/21) IHC INIT 34422 (03/17/21) IHC ADD 63076 (03/17/21) FINAL DIAGNOSIS Abdominal mass, removal: Medical surgical hardware. (Gross only) Small bowel, short segment and a long segment, excision: Transmural defects, with serosal adhesions and acute cervicitis; viable margins of resection. Skin, abdomen, biopsy: Compound moderately dysplastic melanocytic nevus, extending close to the edge of the biopsy specimen (1 mm). Skin and adipose tissue, abdomen, excision: No significant histological abnormality. CONTINUED ON NEXT PAGE RUN DATE: 03/18/21 [facility] PAGE 2 RUN TIME: 1452 Specimen Inquiry RUN USER: INTERFACE SPEC #: [id number] PATIENT: HARISH MONZON SANDRA #[id number] (Continued) GROSS AND MICROSCOPIC GROSS EXAMINATION: received in formalin labeled "abdominal mesh" include a fragment of irregular shaped synthetic material with attached del rosario-brown soft tissue, 27 x 20 x 1 cm. The specimen is for gross examination only. Specimen #2 received in formalin labeled "small bowel x2 "are 2 segments of small bowel without orientation, 11 x 2.5 x 2.5 cm and a 34 x 2.5 x 2.5 cm. The shorter fragment shows del rosario-purple serosa with focal brown discoloration. The mucosa is del rosario-yellow with patchy erythema and a transmural defect, corresponding to the brown discoloration of the serosa. Prison Warden sections submitted (A) margins of resection; (B)-(C) transmural defect. The longer segment is remarkable for 2 ruptures at the midportion and diffuse serosal adhesion. Prison Warden sections submitted: (D) margins of resection; (E)-(F) defect with serosal adhesion. Specimen #3 received in formalin labeled "abdominal wall skin nodule "is a dome-shaped skin shave biopsy (1.2 x 1.1 x 0.5 cm) with black pigmentation. The specimen is inked, sectioned, and entirely submitted (G). Specimen #4 received in formalin labeled "skin adipose tissue/wound "are 2 fragments of irregular shaped del rosario-white skin with associated adipose tissue, aggregating to 18 x 9 x 2 cm. No scar or other lesion is present on the skin surface. Random construction sales representative sections submitted (H)-(J). MICROSCOPIC EXAMINATION: A microscopic examination was performed to arrive at the diagnostic conclusion reported. The dysplastic nevus (block (G)) shows rete bridging and shouldering of melanocytic proliferation. Immunohistochemical stains have been performed with appropriate controls on block (G), which show that the nevus cells are diffusely positive for Sox 10, with dermal component strongly positive for p16 and low Ki-67 proliferation index. Immunohistochemical stains are laboratory developed tests, not cleared with FDA. 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 at [facility] CBC W/AUTO [id number] 08:18:00 Test Item Value Reference Range Interpretation Comments WHITE BLOOD CELL (test code = 11.7 x10 3/uL 4.5-11.0 H WBC) RED BLOOD CELL (test code = 3.35 x10 6/uL 4.00-5.60 L RBC) HEMOGLOBIN (test code = HGB) 9.8 g/dL 12.5-16.9 L HEMATOCRIT (test code = HCT) 31.5 % 37.5-50.7 L MEAN CELL VOLUME (test code = 94.0 fL 81.0-99.0 N MCV) MEAN CELL HGB (test code = MCH) 29.3 pg 27.0-33.0 N MEAN CELL HGB CONCETRATION 31.1 g/dL 33.0-37.0 L (test code = MCHC) RED CELL DISTRIBUTION WIDTH CV 13.9 % 11.5-14.5 N (test code = RDW) PLATELET COUNT (test code = 180 x10 3/uL 150-400 N PLT) NEUTROPHIL % (test code = NT%) 81.3 % 56.0-77.0 H LYMPHOCYTE % (test code = LY%) 5.6 % 14.0-32.0 L NEUTROPHIL # (test code = NT#) 9.48 x10 3/uL 2.0-7.6 H LYMPHOCYTE # (test code = LY#) 0.65 x10 3/uL 1.0-3.8 L MANUAL DIFF REQUIRED (test code NO = MDIFF) RED CELL DISTRIBUTION WIDTH SD 47.2 fL 37.0-54.0 N (test code = RDW-SD) MEAN PLATELET VOLUME (test code 10.9 fL 7.0-9.0 H = MPV) IMMATURE GRANULOCYTE % (test 0.9 % 0.0-2.0 N code = IG%) MONOCYTE % (test code = MO%) 6.9 % 4.8-9.0 N EOSINOPHIL % (test code = EO%) 5.1 % 0.3-3.7 H BASOPHIL % (test code = BA%) 0.2 % 0.0-2.0 N NUCLEATED RBC % (test code = 0.0 % 0-0 N NRBC%) IMMATURE GRANULOCYTE # (test 0.11 x10 3/uL 0.00-0.03 H code = IG#) MONOCYTE # (test code = MO#) 0.80 x10 3/uL 0.1-0.8 N EOSINOPHIL # (test code = EO#) 0.59 x10 3/uL 0.0-0.2 H BASOPHIL # (test code = BA#) 0.02 x10 3/uL 0.0-0.2 N NUCLEATED RBC # (test code = 0.00 x10 3/uL 0.0-0.1 N NRBC#) BASIC METABOLIC [id number] 08:11:00 Test Item Value Reference Range Interpretation Comments SODIUM (test code = NA) 135 mEq/L 134-147 N POTASSIUM (test code = 3.8 mEq/L 3.4-5.0 N K) CHLORIDE (test code = 103 mEq/L 100-108 N CL) CARBON DIOXIDE (test 22 mEq/l 21-33 N code = CO2) ANION GAP (test code = 13 0-20 N GAP) GLUCOSE (test code = 108 mg/dL 70-110 N GLU) BLOOD UREA NITROGEN 14 mg/dL 7-18 N (test code = BUN) GLOMERULAR FILTRATION 100.4 90-95 H Units of measure = RATE (test code = GFR) ml/mi n/1.73 m2 CREATININE (test code = 0.8 mg/dL 0.6-1.3 N CREAT) CALCIUM (test code = 8.4 mg/dL 8.0-10.5 N CA) [id number] 08:11:00 Test Item Value Reference Range Interpretation Comments PHOSPHOROUS (test code = PHOS) 1.9 MG/DL 2.5-4.9 L [id number] 08:11:00 Test Item Value Reference Range Interpretation Comments MAGNESIUM (test code = MAG) 2.19 mg/dL 1.80-2.40 N GLUCOSE [id number] 06:42:00 Test Item Value Reference Range Interpretation Comments GLUCOSE BEDSIDE (test 122 MG/DL 70-110 H Perfor med by certified code = GLUBED) 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 99th Percentile Upper Reference Limit (URL): Females: 34 ng/LMales: 54 ng/L In order to distin [facility] acute elevations of h igh sensitivitytrop onin from other clinical conditions, the Fourthive rsal Definition of M yocardial Infarction stre ssesclinical assessment and the demonstration o f a rise and/orfall in s erial troponin result s above the URL. These resu lts were obtained using Siemens [employer] IM TnI Hreagent. Results from [employer] s hould not becompared to o ne another as quantitative results and URLs mayvary by method. TROP-I HIGH [id number] 02:36:00 Test Item Value Reference Range Interpretation Comments TROP-I HIGH 7 ng/L 0-54 N CAUTION: Units of the SENSITIVITY (test current te st methodology code = TROPIHS) (ng/L) diffe rfrom the prior test methodolog y (ng/mL) by a factor of 1000. 99th Percentile Upper Reference Limit (URL): Females: 34 ng/LMales: 54 ng/L In order to distin [facility] acute elevations of h igh sensitivitytrop onin from other clinical conditions, the FourthUnive rsal Definition of M yocardial Infarction stre ssesclinical assessment and the demonstration o f a rise and/orfall in s erial troponin result s above the URL. These resu lts were obtained using [employer] IM TnI Hreagent. Results from di ffereFixational methodologies s hould not becompared to o ne another as quantitative results and URLs mayvary by method. B-TYPE NATRIURETIC [id number] 02:22:00 Test Item Value Reference Range Interpretation Comments B-TYPE NATRIURETIC PEPTIDE (test 82.0 PG/ML 0-100 N code = BNP) GLUCOSE [id number] 00:15:00 Test Item Value Reference Range Interpretation Comments GLUCOSE BEDSIDE (test 112 MG/DL 70-110 H [facility] med by certified code = GLUBED) 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 at [facility] - CTA CHEST FOR [id number] 00:00:00 [facility] : 1965 Sex: M Name: DAVIDMaureenHARISH FLORES [facility] : Age/S: 55 / M [address] [place] [address] Unit #: [id number] Loc: [place] [address] Phys: Chrissie Baker Acct: [id number] Dis Date: Status: ADM IN PHONE #: [phone] Exam Date: 03/18/2021 153 FAX #: [phone] Reason: R/O PE EXAMS: CPT CODE: [id number] [place] [id number] PROCEDURE INFORMATION: Exam: CTA Chest With Contrast Exam date and time: 03/18/2021 3:35 PM Age: 55 years old Clinical indication: Pain; Chest pressure; Additional info: R/O pe TECHNIQUE: Imaging protocol: Computed tomographic angiography of the chest with contrast. 3D rendering (Not supervised by radiologist): MIP and/or 3D reconstructed images were created by the technologist. Radiation optimization: All CT scans at this facility use at least one of these dose optimization techniques: automated exposure control; mA and/or kV adjustment per patient size (includes targeted exams where dose is matched toclinical indication); or iterative reconstruction. Contrast material: ISOVUE; Contrastvolume: 100 ml; Contrast route: INTRAVENOUS (IV); COMPARISON: CR XR CHEST 1V 03/17/2021 11:00 PM FINDINGS: Pulmonary arteries: Enhancement of the pulmonary arteries is technically limited and not of diagnostic quality. The main right and left pulmonaryarteries are grossly patent. The presence or absence of lobar, segmental and subsegmental disease cannot be stated with certainty. Aorta: The aorta is normal. Lungs: Slight motion limited survey of the lungs. Mild dependent atelectasis with additional bandlike opacities compatible with subsegmental atelectasis. Mild ground- glass opacities in dependent portions. Moderate attenuation indistinct opacities in the posterior segment right upper lobe suggesting component of airspace disease. Pleural spaces: There are trace bilateral pleural effusions. There is no pneumothorax. Heart: The heart demonstrates mild diffuse enlargement. Lymph nodes: Unremarkable. No enlarged lymph nodes. Diaphragm: A small hiatal hernia is present. Gallbladder and bile ducts: There has been a cholecystectomy. Pneumobilia within nondilated system. Circumscribed 3.5 cm water attenuation mass upper pole rightkidney compatible with simple cyst. Stomach and bowel: There is stranding of pericolonic fat in the anterior upper abdomen. The visualized hepatic flexure is contracted. Transverse colon is incompletely imaged on this exam. Bones/joints: Unremarkable. No acute fracture. PAGE 1 Signed Report (CONTINUED) Name: HARISH MONZON [facility] : 1965 Age/S: 55 / M [address] [place] [address] Blvd Unit #: [id number] Loc: [place] [address] Phys: Chrissie Baker Acct: [id number] Dis Date: Status: ADM IN PHONE #: [phone] Exam Date: 03/18/2021 1539 FAX #: [phone] Reason: R/O PE EXAMS: CPT CODE: [id number] [place] [address] <Continued> Soft tissues: There are postoperative changes in the visualized upper abdominal wall with ill-defined areas of stranding, low-attenuation material and mottled gas. No discrete fluid collection through visualized portions. Trace gas in the extraperitoneal and intraperitoneal upper abdomen. IMPRESSION: 1. Nondiagnostic CT angiogram of the pulmonary arteries without gross central emboli. Please correlate clinically with further imaging as warranted. 2. Bilateral hypoventilatory changes with dependent atelectasis. Possible component of airspace disease in the posterior right lower lobe. Pneumonia and aspiration pneumonitis in the differential. Continued radiographic follow-up is suggested. 3. There are postoperative changes in the visualized upper anterior abdominal wall partially imaged on this exam suggesting abdominoplasty and or hernia repair. There is a small volume of free intraperitoneal air and stranding of pericolonic fat in the upper abdomen. Please correlate with surgical history with further imaging as needed. COMMENTS: Consistent with the [place]'s Incidental Findings Committee white paper (J Am Natalee Radiol 2018): Any incidental renal lesion less than 1 cm or classified as too small to characterize, or any incidental cystic renal lesion characterized as simple-appearing, is likely benign. No follow-up imaging is recommended for these lesions per consensus recommendations based on imaging criteria. at 1718 Reported and signed by: Kuldeep Choi M.D. CC: Edin Galvin MD; Chrissie AGUIRRE Technologist:RT Maria Fernanda(R)(CT); ... CTDI: DLP: Trnscb Date/Time: 03/18/2021 (1717) [email or web address] Orig Print D/T: S: 03/18/2021 (1717) PAGE 2 Signed Report- [facility] [id number] 00:00:00 [facility] : 1965 Sex: M Name: HARISH MONZON [facility] [place] : Age/S: 55 / M [address] [place] [address] Unit #: [id number] Loc: [place] [address] Phys: Chrissie Baker Acct: [id number] Dis Date: Status: ADM IN PHONE #: [phone] Exam Date: 03/17/202110 FAX #: [phone] Reason: R/O DVT EXAMS: CPT CODE: [id number] DUP VEIN TERESO 79581 PROCEDURE INFORMATION: Exam: US Duplex Lower Extremity Veins, Bilateral Exam dateand time: 03/17/2021 11:46 PM Age: 55 years old Clinical indication: Other: SOB; Additional info: R/O dvt; Shortness of breath. Recent surgical procedure. TECHNIQUE: Imaging protocol: Real-time duplex ultrasound of the extremities with 2-D ramires scale, color Doppler flow and spectral waveform analysis with image documentation. Complete exam focused on the bilateral lower extremity veins. COMPARISON: No relevant prior studies available. FINDINGS: Right deep veins: Normal. The common femoral, femoral, proximal profunda femoral and popliteal veins are patent without thrombus. Normal Doppler waveforms. Normal compressibility and/or augmentation response. Right superficial veins: Saphenofemoral junction is patent without thrombus. Left deep veins: Normal. The common femoral, fe moral, proximal profunda femoral and popliteal veins are patent without thrombus. Normal Doppler waveforms. Normal compressibility and/or augmentation response. Left superficial veins: Saphenofemoral junction is patent without thrombus. Soft tissues: Normal. IMPRESSION: No evidence of DVT in either lower extremity. at 0025 Reported and signed by: Nicola Charles M.D. 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 [facility] GLUCOSE [id number] 13:05:00 Test Item Value Reference Range Interpretation Comments GLUCOSE BEDSIDE (test 141 MG/DL 70-110 H Perfor med by certified code = GLUBED) 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 at [facility] CBC W/AUTO [id number] 08:58:00 Test Item Value Reference Range Interpretation Comments WHITE BLOOD CELL 9.6 x10 3/uL 4.5-11.0 N (test code = WBC) RED BLOOD CELL (test 3.17 x10 6/uL 4.00-5.60 L code = RBC) HEMOGLOBIN (test code 9.5 g/dL 12.5-16.9 L = HGB) HEMATOCRIT (test code 29.1 % 37.5-50.7 L = HCT) MEAN CELL VOLUME 91.8 fL 81.0-99.0 N (test code = MCV) MEAN CELL HGB (test 30.0 pg 27.0-33.0 N code = MCH) MEAN CELL HGB 32.6 g/dL 33.0-37.0 L CONCETRATION (test code = MCHC) RED CELL DISTRIBUTION 13.5 % 11.5-14.5 N WIDTH CV (test code = RDW) PLATELET COUNT (test 176 x10 3/uL 150-400 N code = PLT) NEUTROPHIL % (test 82.0 % 56.0-77.0 H code = NT%) LYMPHOCYTE % (test 5.8 % 14.0-32.0 L code = LY%) NEUTROPHIL # (test 7.87 x10 3/uL 2.0-7.6 H code = NT#) LYMPHOCYTE # (test 0.56 x10 3/uL 1.0-3.8 L code = LY#) MANUAL DIFF REQUIRED NO SLIDE R BRITTANY, (test code = MDIFF) CONSISTE NT WITH AUTO DIFF. RED CELL DISTRIBUTION 45.5 fL 37.0-54.0 N WIDTH SD (test code = RDW-SD) MEAN PLATELET VOLUME 10.4 fL 7.0-9.0 H (test code = MPV) IMMATURE GRANULOCYTE 0.5 % 0.0-2.0 N % (test code = IG%) MONOCYTE % (test code 6.6 % 4.8-9.0 N = MO%) EOSINOPHIL % (test 4.9 % 0.3-3.7 H code = EO%) BASOPHIL % (test code 0.2 % 0.0-2.0 N = BA%) NUCLEATED RBC % (test 0.0 % 0-0 N code = NRBC%) IMMATURE GRANULOCYTE 0.05 x10 3/uL 0.00-0.03 H # (test code = IG#) MONOCYTE # (test code 0.63 x10 3/uL 0.1-0.8 N = MO#) EOSINOPHIL # (test 0.47 x10 3/uL 0.0-0.2 H code = EO#) BASOPHIL # (test code 0.02 x10 3/uL 0.0-0.2 N = BA#) NUCLEATED RBC # (test 0.00 x10 3/uL 0.0-0.1 N code = NRBC#) BASIC METABOLIC [id number] 08:10:00 Test Item Value Reference Range Interpretation Comments SODIUM (test code = NA) 136 mEq/L 134-147 N POTASSIUM (test code = 4.2 mEq/L 3.4-5.0 N K) CHLORIDE (test code = 105 mEq/L 100-108 N CL) CARBON DIOXIDE (test 23 mEq/l 21-33 N code = CO2) ANION GAP (test code = 13 0-20 N GAP) GLUCOSE (test code = 144 mg/dL 70-110 H GLU) BLOOD UREA NITROGEN 18 mg/dL 7-18 N (test code = BUN) GLOMERULAR FILTRATION 100.4 90-95 H Units of measure = RATE (test code = GFR) ml/mi n/1.73 m2 CREATININE (test code = 0.8 mg/dL 0.6-1.3 CREAT) CALCIUM (test code = 7.8 mg/dL 8.0-10.5 L CA) GLUCOSE [id number] 06:10:00 Test Item Value Reference Range Interpretation Comments GLUCOSE BEDSIDE (test 143 MG/DL 70-110 H Perfor med by certified code = GLUBED) 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 at [facility] GLUCOSE [id number] 06:10:00 Test Item Value Reference Range Interpretation Comments GLUCOSE BEDSIDE (test 144 MG/DL 70-110 H Perfor med by certified code = GLUBED) 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 at [facility] - XR CHEST 1 [id number] 00:00:00 [facility] 1965 Sex: M FAX: Ayush Segal [phone] [place]: St: ADM FAX:Chrissie Baker [phone] Name: HARISH MONZON [facility] : 1965 Age/S: 55/M [address] [place] [address] Unit #: [id number] Loc: [address] [address] Phys: Chrissie Baker Acct: [id number] Dis Date: Status: ADM IN PHONE #: [phone] Exam Date: 03/17/2021 2314 FAX #: [phone] Reason: NG TUBE PLACEMENT EXAMS: CPT CODE: [id number] XR CHEST 1 V 26233 PROCEDURE INFORMATION: Exam: XR Chest Exam date and time: 03/17/2021 11:00 PM Age: 55 years old Clinical indication: Device placement; Ng tube; Additional info: Ng tube placement TECHNIQUE: Imaging protocol: XR of the chest. Views: 1 view. COMPARISON: DX XR CHEST 2 V 03/11/2021 9:24 AM FINDINGS: Lungs: Patchy right upper lobe infiltrate and or atelectasis. dation. Pleural spaces: Unremarkable. No pleural effusion. No pneumothorax. Heart/Mediastinum: Heart size is within normal limits. Vasculature is unremarkable. NG tube tip is at the proximal thoracic esophagus, needing repositioning. Bones/joints: Unremarkable. IMPRESSION: 1. NG tube tip is at theproximal thoracic esophagus and needs repositioning. 2. Right upper lobe atelectasis and or pneumonia. at 2320 Reported and signed by: Tyler Hobbs M.D. 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 at [facility] CBC W/AUTO [id number] 11:05:00 Test Item Value Reference Range Interpretation Comments WHITE BLOOD CELL 8.7 x10 3/uL 4.5-11.0 N (test code = WBC) RED BLOOD CELL (test 3.76 x10 6/uL 4.00-5.60 L code = RBC) HEMOGLOBIN (test code 11.3 g/dL 12.5-16.9 L = HGB) HEMATOCRIT (test code 34.0 % 37.5-50.7 L = HCT) MEAN CELL VOLUME 90.4 fL 81.0-99.0 N (test code = MCV) MEAN CELL HGB (test 30.1 pg 27.0-33.0 N code = MCH) MEAN CELL HGB 33.2 g/dL 33.0-37.0 N CONCETRATION (test code = MCHC) RED CELL DISTRIBUTION 13.6 % 11.5-14.5 N WIDTH CV (test code = RDW) RED CELL DISTRIBUTION 45.7 fL 37.0-54.0 N WIDTH SD (test code = RDW-SD) PLATELET COUNT (test 164 x10 3/uL 150-400 N code = PLT) MEAN PLATELET VOLUME 10.3 fL 7.0-9.0 H (test code = MPV) NEUTROPHIL % (test 82.3 % 56.0-77.0 H code = NT%) LYMPHOCYTE % (test 7.0 % 14.0-32.0 L code = LY%) NEUTROPHIL # (test 7.19 x10 3/uL 2.0-7.6 N code = NT#) LYMPHOCYTE # (test 0.61 x10 3/uL 1.0-3.8 L code = LY#) MANUAL DIFF REQUIRED NO SLIDE R EVIEWED, (test code = MDIFF) CONSISTE NT WITH AUTO DIFF. IMMATURE GRANULOCYTE 0.9 % 0.0-2.0 N % (test code = IG%) MONOCYTE % (test code 6.8 % 4.8-9.0 N = MO%) EOSINOPHIL % (test 2.9 % 0.3-3.7 N code = EO%) BASOPHIL % (test code 0.1 % 0.0-2.0 N = BA%) NUCLEATED RBC % (test 0.0 % 0-0 N code = NRBC%) IMMATURE GRANULOCYTE 0.08 x10 3/uL 0.00-0.03 H # (test code = IG#) MONOCYTE # (test code 0.59 x10 3/uL 0.1-0.8 N = MO#) EOSINOPHIL # (test 0.25 x10 3/uL 0.0-0.2 H code = EO#) BASOPHIL # (test code 0.01 x10 3/uL 0.0-0.2 N = BA#) NUCLEATED RBC # (test 0.00 x10 3/uL 0.0-0.1 N code = NRBC#) BASIC METABOLIC [id number] 07:53:00 Test Item Value Reference Range Interpretation Comments SODIUM (test code = NA) 134 mEq/L 134-147 N POTASSIUM (test code = 4.5 mEq/L 3.4-5.0 N K) CHLORIDE (test code = 102 mEq/L 100-108 N CL) CARBON DIOXIDE (test 24 mEq/l 21-33 N code = CO2) ANION GAP (test code = 13 0-20 N GAP) GLUCOSE (test code = 166 mg/dL 70-110 H GLU) BLOOD UREA NITROGEN 20 mg/dL 7-18 H (test code = BUN) GLOMERULAR FILTRATION 69.5 90-95 L Units of measure = RATE (test code = GFR) ml/mi n/1.73 m2 CREATININE (test code = 1.1 mg/dL 0.6-1.3 N CREAT) CALCIUM (test code = 8.2 mg/dL 8.0-10.5 N CA) GLUCOSE [id number] 05:05:00 Test Item Value Reference Range Interpretation Comments GLUCOSE BEDSIDE (test 172 MG/DL 70-110 H Perfor med by certified code = GLUBED) 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 at [facility] GLUCOSE [id number] 00:17:00 Test Item Value Reference Range Interpretation Comments GLUCOSE BEDSIDE (test 172 MG/DL 70-110 H Perfor med by certified code = GLUBED) 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 at [facility] GLUCOSE [id number] 18:10:00 Test Item Value Reference Range Interpretation Comments GLUCOSE BEDSIDE (test 168 MG/DL 70-110 H Perfor med by certified code = GLUBED) 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 at [facility] GLUCOSE [id number] 16:40:00 Test Item Value Reference Range Interpretation Comments GLUCOSE BEDSIDE (test 203 MG/DL 70-110 H Perfor med by certified code = GLUBED) 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 at [facility] CBC W/AUTO [id number] 11:08:00 Test Item Value Reference Range Interpretation Comments WHITE BLOOD CELL 9.7 x10 3/uL 4.5-11.0 (test code = WBC) RED BLOOD CELL (test 4.60 x10 6/uL 4.00-5.60 N code = RBC) HEMOGLOBIN (test code 13.7 g/dL 12.5-16.9 N = HGB) HEMATOCRIT (test code 41.7 % 37.5-50.7 N = HCT) MEAN CELL VOLUME 90.7 fL 81.0-99.0 N (test code = MCV) MEAN CELL HGB (test 29.8 pg 27.0-33.0 N code = MCH) MEAN CELL HGB 32.9 g/dL 33.0-37.0 L CONCETRATION (test code = MCHC) RED CELL DISTRIBUTION 13.9 % 11.5-14.5 N WIDTH CV (test code = RDW) RED CELL DISTRIBUTION 46.2 fL 37.0-54.0 N WIDTH SD (test code = RDW-SD) PLATELET COUNT (test 175 x10 3/uL 150-400 N code = PLT) MEAN PLATELET VOLUME 10.3 fL 7.0-9.0 H (test code = MPV) NEUTROPHIL % (test 83.6 % 56.0-77.0 H code = NT%) LYMPHOCYTE % (test 6.8 % 14.0-32.0 L code = LY%) NEUTROPHIL # (test 8.12 x10 3/uL 2.0-7.6 H code = NT#) LYMPHOCYTE # (test 0.66 x10 3/uL 1.0-3.8 L code = LY#) MANUAL DIFF REQUIRED NO SLIDE R EVIEWED, (test code = MDIFF) CONSISTE NT WITH AUTO DIFF. IMMATURE GRANULOCYTE 0.2 % 0.0-2.0 N % (test code = IG%) MONOCYTE % (test code 8.8 % 4.8-9.0 N = MO%) EOSINOPHIL % (test 0.5 % 0.3-3.7 N code = EO%) BASOPHIL % (test code 0.1 % 0.0-2.0 N = BA%) NUCLEATED RBC % (test 0.0 % 0-0 N code = NRBC%) IMMATURE GRANULOCYTE 0.02 x10 3/uL 0.00-0.03 N # (test code = IG#) MONOCYTE # (test code 0.85 x10 3/uL 0.1-0.8 H = MO#) EOSINOPHIL # (test 0.05 x10 3/uL 0.0-0.2 N code = EO#) BASOPHIL # (test code 0.01 x10 3/uL 0.0-0.2 N = BA#) NUCLEATED RBC # (test 0.00 x10 3/uL 0.0-0.1 N code = NRBC#) BASIC METABOLIC [id number] 08:02:00 Test Item Value Reference Range Interpretation Comments SODIUM (test code = NA) 136 mEq/L 134-147 N POTASSIUM (test code = 4.5 mEq/L 3.4-5.0 N K) CHLORIDE (test code = 102 mEq/L 100-108 N CL) CARBON DIOXIDE (test 26 mEq/l 21-33 N code = CO2) ANION GAP (test code = 12 0-20 N GAP) GLUCOSE (test code = 172 mg/dL 70-110 H GLU) BLOOD UREA NITROGEN 19 mg/dL 7-18 H (test code = BUN) GLOMERULAR FILTRATION 62.9 90-95 L Units of measure = RATE (test code = GFR) ml/mi n/1.73 m2 CREATININE (test code = 1.2 mg/dL 0.6-1.3 N CREAT) CALCIUM (test code = 8.9 mg/dL 8.0-10.5 N CA) [id number] 08:02:00 Test Item Value Reference Range Interpretation Comments MAGNESIUM (test code = MAG) 1.95 mg/dL 1.80-2.40 N GLUCOSE [id number] 06:13:00 Test Item Value Reference Range Interpretation Comments GLUCOSE BEDSIDE (test 183 MG/DL 70-110 H Perfor med by certified code = GLUBED) 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 at [facility] GLUCOSE [id number] 23:43:00 Test Item Value Reference Range Interpretation Comments GLUCOSE BEDSIDE (test 157 MG/DL 70-110 H Perfor med by certified code = GLUBED) 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 at [facility] GLUCOSE [id number] 15:55:00 Test Item Value Reference Range Interpretation Comments GLUCOSE BEDSIDE (test 162 MG/DL 70-110 H Perfor med by certified code = GLUBED) 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 at [facility] GLUCOSE [id number] 11:23:00 Test Item Value Reference Range Interpretation Comments GLUCOSE BEDSIDE (test 192 MG/DL 70-110 H Perfor med by certified code = GLUBED) 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 at [facility] BASIC METABOLIC [id number] 08:58:00 Test Item Value Reference Range Interpretation Comments SODIUM (test code = NA) 137 mEq/L 134-147 N POTASSIUM (test code = 4.5 mEq/L 3.4-5.0 N K) CHLORIDE (test code = 105 mEq/L 100-108 N CL) CARBON DIOXIDE (test 24 mEq/l 21-33 N code = CO2) ANION GAP (test code = 12 0-20 N GAP) GLUCOSE (test code = 234 mg/dL 70-110 H GLU) BLOOD UREA NITROGEN 20 mg/dL 7-18 H (test code = BUN) GLOMERULAR FILTRATION 52.6 90-95 L Units of measure = RATE (test code = GFR) ml/mi n/1.73 m2 CREATININE (test code = 1.4 mg/dL 0.6-1.3 H CREAT) CALCIUM (test code = 8.1 mg/dL 8.0-10.5 N CA) [id number] 08:58:00 Test Item Value Reference Range Interpretation Comments PHOSPHOROUS (test code = PHOS) 3.9 MG/DL 2.5-4.9 N [id number] 08:58:00 Test Item Value Reference Range Interpretation Comments MAGNESIUM (test code = MAG) 1.79 mg/dL 1.80-2.40 L CALCIUM [id number] 08:58:00 Test Item Value Reference Range Interpretation Comments CALCIUM IONIZED (test code = ADAL) 1.12 MMOL/L 1.12-1.32 N GLUCOSE [id number] 07:57:00 Test Item Value Reference Range Interpretation Comments GLUCOSE BEDSIDE (test 252 MG/DL 70-110 H Perfor med by certified code = GLUBED) 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 at [facility] HGB [id number] 07:14:00 Test Item Value Reference Range Interpretation Comments HEMOGLOBIN (test code = HGB) 15.2 g/dL 12.5-16.9 N HEMATOCRIT (test code = HCT) 45.5 % 37.5-50.7 N GLUCOSE [id number] 01:05:00 Test Item Value Reference Range Interpretation Comments GLUCOSE BEDSIDE (test 217 MG/DL 70-110 H Perfor med by certified code = GLUBED) 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 at [facility] BASIC METABOLIC [id number] 13:43:00 Test Item Value Reference Range Interpretation Comments SODIUM (test code = NA) 138 mEq/L 134-147 N POTASSIUM (test code = 4.4 mEq/L 3.4-5.0 N K) CHLORIDE (test code = 103 mEq/L 100-108 N CL) CARBON DIOXIDE (test 27 mEq/l 21-33 N code = CO2) ANION GAP (test code = 12 0-20 N GAP) GLUCOSE (test code = 127 mg/dL 70-110 H GLU) BLOOD UREA NITROGEN 12 mg/dL 7-18 N (test code = BUN) GLOMERULAR FILTRATION 69.5 90-95 L Units of measure = RATE (test code = GFR) ml/mi n/1.73 m2 CREATININE (test code = 1.1 mg/dL 0.6-1.3 N CREAT) CALCIUM (test code = 9.2 mg/dL 8.0-10.5 N CA) GLUCOSE [id number] 13:27:00 Test Item Value Reference Range Interpretation Comments GLUCOSE BEDSIDE (test 126 MG/DL 70-110 H Perfor med by certified code = GLUBED) 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 Positiv e results do not rule out bacterial infection or co -infection with other viru ses. Negative result s do not preclude SARS-C oV-2 infection andsh ould not be used as the jerardo e basis for patient managementdecis ions. Negative result s must be combined with otherclinical observations, p atient history, and epidemiological information . Detection of SARS-CoV-2 RNA may be affe cted bysample collec tion methods, storag e conditions, and /or stageof infection. Mavis l RNA mutations, vacc inations, antiviraltherap eutics, antibiotics, chemotherapeuti c orimmunosuppres taryn drugs have not been e valuated for effectson d etection. Results are for the identification of SARS-CoV-2 RNA usingthe Trendlr M2000 Sy stem under the FDA Emergen cy UseAuthorizatio n. The testing is perf ormed by personneltrabianka d in the procedures for the Fabian M2000 molecular diagnostic SARS-CoV-2 assa y in vitro. BASIC METABOLIC [id number] 08:55:00 Test Item Value Reference Range Interpretation Comments SODIUM (test code = NA) 141 mEq/L 134-147 N POTASSIUM (test code = 4.2 mEq/L 3.4-5.0 N K) CHLORIDE (test code = 102 mEq/L 100-108 N CL) CARBON DIOXIDE (test 32 mEq/l 21-33 N code = CO2) ANION GAP (test code = 12 0-20 N GAP) GLUCOSE (test code = 110 mg/dL 70-110 N GLU) BLOOD UREA NITROGEN 11 mg/dL 7-18 N (test code = BUN) GLOMERULAR FILTRATION 62.9 90-95 L Units of measure = RATE (test code = GFR) ml/mi n/1.73 m2 CREATININE (test code = 1.2 mg/dL 0.6-1.3 N CREAT) CALCIUM (test code = 9.7 mg/dL 8.0-10.5 N CA) PROTHROMBIN [id number] 08:45:00 Test Item Value Reference Range Interpretation Comments PROTHROMBIN TIME 11.6 SECONDS 9.3-12.9 N PATIENT (test code = PTP) INTERNATIONAL NORMAL 1.0 0.8-1.2 N TARGET RATIO (test code = INR BY IN DICATION INR) Indication INR1. Prophyl axis of venous thrombos is 2.0 - 3. 0 (orthopedic melina crystal), Prophylaxis of venous thrombos is (other than hig h-risk surgery), Karin tment of Deep Vein Thrombosis/Pulm onary Embolism, Preve ntion of systemic emb olism - Tissue heart va lves, Acute Myocardia l Infarction (to prevent systemic embo lism), Valvular heart disease, Atri al Fibrillation, Bileaflet mecha nical valve in aortic position.2. Mec hanical prosthetic valv es (high risk), 2.5 - 3.5 Presence of Lupus Anticoagu lant or Antiphospholi pid Antibodies, Pre vention of systemic e mbolism - Acute Myocard ial Infarction (t o prevent recurre nt infarct). THROMBOPLASTIN TIME [id number] 08:45:00 Test Item Value Reference Range Interpretation Comments THROMBOPLASTIN TIME 32.2 Seconds 25.0-39.5 N Ther apeutic PARTIAL (test code = Range: 50.4 - 88.3 PTT) Seconds Effective 09/06/2018 CBC W/AUTO [id number] 08:40:00 Test Item Value Reference Range Interpretation Comments WHITE BLOOD CELL (test code = 3.5 x10 3/uL 4.5-11.0 L WBC) RED BLOOD CELL (test code = 5.45 x10 6/uL 4.00-5.60 N RBC) HEMOGLOBIN (test code = HGB) 16.1 g/dL 12.5-16.9 N HEMATOCRIT (test code = HCT) 49.3 % 37.5-50.7 N MEAN CELL VOLUME (test code = 90.5 fL 81.0-99.0 N MCV) MEAN CELL HGB (test code = MCH) 29.5 pg 27.0-33.0 N MEAN CELL HGB CONCETRATION 32.7 g/dL 33.0-37.0 L (test code = MCHC) RED CELL DISTRIBUTION WIDTH CV 13.5 % 11.5-14.5 N (test code = RDW) PLATELET COUNT (test code = 169 x10 3/uL 150-400 N PLT) NEUTROPHIL % (test code = NT%) 56.4 % 56.0-77.0 N LYMPHOCYTE % (test code = LY%) 29.6 % 14.0-32.0 N NEUTROPHIL # (test code = NT#) 1.98 x10 3/uL 2.0-7.6 L LYMPHOCYTE # (test code = LY#) 1.04 x10 3/uL 1.0-3.8 N MANUAL DIFF REQUIRED (test code NO = MDIFF) RED CELL DISTRIBUTION WIDTH SD 44.6 fL 37.0-54.0 N (test code = RDW-SD) MEAN PLATELET VOLUME (test code 9.1 fL 7.0-9.0 H = MPV) IMMATURE GRANULOCYTE % (test 0.3 % 0.0-2.0 N code = IG%) MONOCYTE % (test code = MO%) 9.1 % 4.8-9.0 H EOSINOPHIL % (test code = EO%) 4.3 % 0.3-3.7 H BASOPHIL % (test code = BA%) 0.3 % 0.0-2.0 N NUCLEATED RBC % (test code = 0.0 % 0-0 N NRBC%) IMMATURE GRANULOCYTE # (test 0.01 x10 3/uL 0.00-0.03 N code = IG#) MONOCYTE # (test code = MO#) 0.32 x10 3/uL 0.1-0.8 N EOSINOPHIL # (test code = EO#) 0.15 x10 3/uL 0.0-0.2 N BASOPHIL # (test code = BA#) 0.01 x10 3/uL 0.0-0.2 N NUCLEATED RBC # (test code = 0.00 x10 3/uL 0.0-0.1 N NRBC#) - XR CHEST 2 [id number] 00:00:00 [facility] : 1965 Sex: M FAX: Kathie Mathew [place]: St: PRE FAX: Ayush Segal [phone] Name: HARISH MONZON [facility] : 1965 Age/S: 55/M [address] [place] [address] Unit #: [id number] Loc: [place] [address] Phys: Kathie 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 Views: 2 views. PA and Lateral COMPARISON: CT C- SPINE W/O CONT 10/09/2019 3:42 PM FINDINGS: Lungs: Normal lung volumes. Lungs are clear. Normal pulmonary vascularity. Pleural spaces: No pneumothorax or pleural effusion. Heart/Mediastinum: Cardiomediastinal silhouette is within normal limits. Bones/joints: Degenerative changes of the spine. IMPRESSION: No acute cardiopulmonary disease at 1028 Reported and signed by: Soha Hamlin M.D. CC: Kathie Hensley NP; Edin Galvin MD Technologist: HINA Roach) Trnscrd Date/Time/By: 03/11/2021 (1028) : By: [email or web address] Orig Print D/T: S: 03/11/2021 (102) PAGE 1 Signed Report TROPONIN [id number] 23:37:16 Test Item Value Reference Interpretation Comments Range TROPONIN I (test 0.002 ng/mL See_Comment [Automated code = [id number]) message] The system which generated this result transmitted reference range : <=0.034. The reference range was not used to interpret this result as normal/abnormal . STEWART (test code = Reference (Normal) STEWART) Range (defined by the 99th percentile reference limit): <= 0.034 ng/mL Note: Cardiac troponin begins to rise 3-4 hours after the onset of ischemia. Repeat in 4-6 hours if the sample was drawn within 3-4 hours of the onset of the symptom and found normal. Diagnosis of myocardial injury is made with acute changes in cTn concentrations with at least one serial sample above the 99th percentile upper reference limit (URL), taken together with the patient's clinical presentation. Biotin has been reported to cause a negative bias, interpret results relative to patient's use of biotin. Lab Interpretation Normal (test code = 82586-5) NPI:[id number] [id number]-[id number] 23:34:00 Test Item Value Reference Range Interpretation Comments NT-proBNP (test code 83 pg/mL See_Comment [Autom ated = 8487776117) message] The system which generated this result transmitted reference range : <=125. The reference range was not used to interpret this result as normal/abnormal . STEWART (test code = STEWART) Biotin has been reported to cause a negative bias, interpret results relative to patient's use of biotin. Lab Interpretation Normal (test code = 34414-1) NPI:[id number]. METABOLIC PANEL (90771)2021-02-16 23:26:38 Test Item Value Reference Range Interpretation Comments NA (test code = 138 mmol/L 135-145 8054438750) K (test code = 4.0 mmol/L 3.5-5.0 5978817807) CL (test code = 106 mmol/L 98-108 7060332637) CO2 TOTAL (test code = 25 mmol/L 23-31 1497963511) AGAP (test code = 2-16 1033633342) BUN (test code = 13 mg/dL 7-23 6325268680) GLUCOSE (test code = 125 mg/dL 70-110 H 8446168672) CREATININE (test code = 1.26 mg/dL 0.60-1.25 H 6679162322) TOTAL BILI (test code = 0.7 mg/dL 0.1-1.5 3472744241) CALCIUM (test code = 10.1 mg/dL 8.6-10.6 0138169984) T PROTEIN (test code = 7.4 g/dL 6.3-8.2 2491714960) ALBUMIN (test code = 4.2 g/dL 3.5-5.0 9066716328) ALK PHOS (test code = 113 U/L 34-122 2091420203) ALTv (test code = 22 U/L 5-50 1742-6) AST(SGOT) (test code = 24 U/L 13-40 4104056648) eGFR (test code = mL/min/1.73m2 7509851250) STEWART (test code = STEWART) Association of Glomerular Filtration Rate (GFR) and Staging of Kidney Disease* + --+ --+ ------+| GFR (mL/min/1.73 m2) ?| With Kidney Damage ?| ?Without Kidney Damage+ --------+ --------+ +| ?>90 ?| ?Stage one ?| ? Normal ?+ ---+ ---+ -------+| ?60-89 ?| ?Stage two ?| ? Decreased GFR ? + --+ --+ ------+| ?30-59 ?| ?Stage three ?| ? Stage three ? + --+ --+ ------+| ?15-29 ?| ?Stage four ? | ? Stage four ?+ ---+ ---+ -------+| ?<15 (or dialysis) ? ?| ?Stage five ? | ? Stage five ?+ ---+ ---+ -------+ *Each stage assumes the associated GFR level has been in effect for at least three months. ?Stages 1 to 5, with or without kidney disease, indicate chronic kidney disease. Notes: Determination of stages one and two (with eGFR >59mL/min/1.73 m2) requires estimation of kidney damage for at least three months as defined by structural or functional abnormalities of the kidney, manifested by either:Pathological abnormalities or Markers of kidney damage (including abnormalities in the composition of the blood or urine or abnormalities in imaging tests). Lab Interpretation Abnormal (test code = 96464-8) NPI:[id number] PARTIAL THRMPLAS [id number] 23:15:18 Test Item Value Reference Range Interpretation Comments APTT Patient (test See_Comment [Automat ed code = 3173-2) message] The system which generated this result transmitted reference range : 23 - 38 Seconds . The reference range was not used to interpr et this result as normal/abnormal . STEWART (test code = STEWART) The [facility] patient population mean normal value for aPTT is 30 seconds. Lab Interpretation Normal (test code = 51267-4) NPI:[id number] TIME / [id number] 23:13:18 Test Item Value Reference Range Interpretation Comments PROTIME PATIENT (test See_Comment [Auto mated message] code = 5964-2) The system wh ich generated this result transmitted ref erence range: 12.0 - 1 4.7 Seconds. The re ference range was not u sed to interpret this result as normal/abnor mal. INR (test code = 6301-6) Nor mal INR <1.1; Warfarin Therap eutic range 2.0 to 3. 0 or 2.5 to 3.5, dep ending upon the indica tions. Lab Interpretation (test Normal code = 01224-7) NPI:[id number] WITH [id number] 23:02:54 Test Item Value Reference Range Interpretation Comments WBC (test code = See_Comment [Automated 6690-2) message] The sy stem which generated this result transmitted reference range : 4.20 - 10.70 10*3/?L. The reference range was not used to interpret this result as normal/abnormal . RBC (test code = See_Comment [Automated 789-8) message] The sy stem which generated this result transmitted reference range : 4.26 - 5.52 10*6/?L. The reference range was not used to interpret this result as normal/abnormal . HGB (test code = 15.0 g/dL 12.2-16.4 718-7) HCT (test code = 44.9 % 38.4-49.3 4544-3) MCV (test code = 87.9 fL 81.7-95.6 787-2) MCH (test code = 29.4 pg 26.1-32.7 785-6) MCHC (test code = 33.4 g/dL 31.2-35.0 786-4) RDW-SD (test code = 42.5 fL 38.5-51.6 32685-0) RDW-CV (test code = 13.2 % 12.1-15.4 788-0) PLT (test code = See_Comment [Automated 777-3) message] The sy stem which generated this result transmitted reference range : 150 - 328 10*3/ ?L. The reference r hima was not used to interpret this result as normal/abnormal . MPV (test code = 9.1 fL 9.8-13.0 L 53128-7) NRBC/100 WBC (test See_Comment [Automat ed code = 8432396834) message] The system which generated this result transmitted reference range : 0.0 - 10.0 /100 WBCs. The refer ence range was not u sed to interpret th is result as normal/abnormal . NRBC x10^3 (test code <0.01 See_Comment [Auto mated = 0755371389) message] The s ystem which generated this result transmitted reference range : 10*3/?L. The reference range was not used to interpret this result as normal/abnormal . GRAN MAT (NEUT) % 69.2 % (test code = 770-8) IMM GRAN % (test code 0.30 % = 5592123081) LYMPH % (test code = 17.9 % 736-9) MONO % (test code = 8.9 % 5905-5) EOS % (test code = 3.5 % 713-8) BASO % (test code = 0.2 % 706-2) GRAN MAT x10^3(ANC) 4.61 10*3/uL 1.99-6.95 (test code = 3044155285) IMM GRAN x10^3 (test <0.03 0.00-0.06 code = 9287762495) LYMPH x10^3 (test code 1.19 10*3/uL 1.09-3.23 = 731-0) MONO x10^3 (test code 0.59 10*3/uL 0.36-1.02 = 742-7) EOS x10^3 (test code = 0.23 10*3/uL 0.06-0.53 711-2) BASO x10^3 (test code <0.03 0.01-0.09 = 704-7) Lab Interpretation Abnormal (test code = 51209-8) NPI:[id number] ABDOMEN PELVIS W WO [id number] 02:27:311. Unremarkable appearance of the stomach, small bowel and colon on thisexam. No evidence for small bowel or colonic inflammation is identified onthis study. No active extravasation of contrast into the lumen of the smallbowel and colon is identified on this exam.2. A large right lateral abdominal wall hernia is identified which containsthe ascending colon.3. A small spigelian hernia on the right is identified which contains aloop of small bowel. No evidence for obstruction or inflammation ispresent.3. Colonic diverticula are present without acute diverticulitis.4. A small bowel diverticulum is present.5. Hepatic steatosis is present.6. A right renal cyst is identified. RL: 2831 ORDERING PHYSICIAN: PHILIPPE THOMAS CT ENTEROGRAPHY OF THE ABDOMEN AND PELVIS WITHOUT AND WITH CONTRAST. DATE: ?11/27/2020 CLINICAL INDICATIONS: ?GI bleed, anemia. TECHNIQUE: ?Axial computed tomographic images of the abdomen and pelviswere performed before and following the administration of 100 cc ofIsovue- 370 intravenously. Post contrast imaging was obtained duringarterial and portal venous phases. Negative oral contrast was administeredprior to imaging. CT scan was performed according to ALARA (As Low asReasonably Achievable). COMPARISON: ?None. FINDINGS: The stomach demonstrates no abnormality. A duodenal diverticulumis present. The small bowel is normal caliber without evidence forobstruction or inflammation. The colon has an unremarkable appearance. Noevidence for intraluminal IV contrast material within the small bowel andcolon is identified on the arterial and portal venous phase images tosuggest active extravasation of intravenous contrast material. Scatteredcolonic diverticula are present without acute diverticulitis. A right ventral abdominal wall hernia is identified which contains aportion of the ascending colon. No evidence for obs truction or inflammationis identified. A spigelian hernia on the right is also identified which contains a loop ofsmall bowel without evidence for obstruction or inflammation. Mild hepatic steatosis ispresent. Cholecystectomy has been performed. Thespleen, pancreas, adrenal glands and left kidney demonstrate noabnormality. A right renal cyst is present. The urinary bladder demonstrates no abnormality. The prostate gland iswithin normal limits of size. No adenopathy or free fluid are identified in the abdomen and pelvis. Noacute osseous abnormality is demonstrated. [facility], Radiant Results Inft User -11/27/2020 9:28 PM CDT ORDERING PHYSICIAN: PHILIPPE THOMASCT ENTEROGRAPHY OF THE ABDOMEN AND PELVIS WITHOUT AND WITH CONTRAST.DATE: 11/27/2020LINICAL INDICATIONS: GI bleed, anemia.TECHNIQUE: Axial computed tomographic images of the abdomen and pelviswere performed before and following the administration of 100 cc ofIsovue- 370 intravenously. Post contrast imaging was obtained duringarterial and portal venous phases. Negative oral contrast was administeredprior to imaging. CT scan was performed according to ALARA (As Low asReasonablyAchievable).COMPARISON: None.FINDINGS: The stomach demonstrates no abnormality. A duodenal diverticu lumis present. The small bowel is normal caliber without evidence forobstruction or inflammation. The colon has an unremarkable appearance. Noevidence for intraluminal IV contrast material within the small bowel andcolon is identified on the arterial and portal venous phase images tosuggest active extravasation of intravenous contrast material. Scatteredcolonic diverticula are present without acute diverticulitis.A right ventral abdominal wall hernia is identified which contains aportion of the ascending colon. No evidence for obstruction or inflammationis identified.A spigelian hernia on the rightis also identified which contains a loop ofsmall bowel without evidence for obstruction or inflammation.Mild hepatic steatosis is present. Cholecystectomy has been performed. Thespleen, pancreas, adrenal glands and left kidney demonstrate noabnormality. A right renal cyst is present.The urinary bladder demonstrates no abnormality. The prostate gland iswithin normal limits of size.No adenopathy or free fluid are identified in the abdomen and pelvis. Noacute osseous abnormality is demonstrated.IMPRESSION1. Unremarkable appearance of the stomach, small bowel and colon on thisexam. No evidence for small bowel or colonic inflammation is identified onthis study. No active extravasation of contrast into the lumen of the smallbowel and colon is identified on this exam.2. A large right lateral abdominal wall hernia is identified which containsthe ascending colon.3. A small spigelian hernia on the right is identified which contains aloop of small bowel. No evidence for obstruction or inflammation ispresent.3. Colonic diverticula are present without acute diverticulitis.4. A small bowel diverticulum is present.5. Hepatic steatosis is present.6. A right renal cyst is identified. RL: 2831 :[id number] [id number] 18:38:46 Test Item Value Reference Range Interpretation Comments POCT Creatinine (test code = 1.3 mg/dL 0.6-1.3 8529100543) Lab Interpretation (test code = Normal 36047-4) NPI:[id number] 21:30:0056[facility] 2020-10-09 21:30:00<0.2[facility] [id number] 21:30:0056 [facility] EKJW5964-40-48 21:30:00<0.2[facility]annCHEM PANEL 2020-10-09 20:34:39499Qlikyruc HermannCHEM HXGHK4290-98-01 20:34:0014[facility]annCHEM OLRKL0281-30-86 20:34:001.11[facility]annCHE[facility] UQZXG3470-49-46 20:34:0075[facility]annCHE[facility] BFQCA7166-16-97 20:34:0087[facility]annCHE[facility] ILDGC5314-78-51 20:34:91673Rhbymmqa HermannCHEM GYQCM0137-43-46 20:34:004.1 [facility] JRRAH1850-19-63 20:34:0095[facility]ann[facility] PANEL 2020-10-09 20:34:0031[facility]annCHEM QNCAV0300-51-88 20:34:009.8[facility]annCHEM UZVXK7740-95-24 20:34:007.5[facility]annCHEM CTRDN3941-40-99 20:34:004.3[facility]annCHEM RRFGK0328-15-10 20:34:003.2[facility]annCHEM JDHOA1695-83-68 20:34:001.3[facility]annCHEM KKUSL6901-31-14 20:34:001.1 [facility]ann[facility] SHWBG6076-40-76 20:34:39420Naygttzc HermannCHEM PANEL 2020-10-09 20:34:0014[facility]annCHEM GHQNZ4132-36-67 20:34:0024[facility] HxwnhnwFNEXOV4734-41-73 20:34:12338Hsgwxfew QazbsidYQOZWB0673-07-76 20:34:0034 [facility] CfkxkinSDPHTN8245-80-53 20:34:52340Jriljlyl UbmltoeCEIZCJ2224-47-04 20:34:16685Tqdfgrmu IyreiwnHXCDNC1887-41-11 20:34:006.0[facility] HermannLIPIDS 2020-10-09 20:34:15647Hmmsgzxp HermannSPECIAL JGEOKOUFB5476-62-83 20:34:0010.5 [facility]annCHE[facility] JIYOJ3970-61-26 20:34:45293Dfqlbjwc HermannCHEM PANEL 2020-10-09 20:34:0014[facility] HermannCHEM GXWSD8645-84-96 20:34:001.11[facility]annCHEM XVPVI6426-98-99 20:34:0075[facility]annCHEM FKGWU5162-69-57 20:34:0087[facility]annCHEM CNEXU9758-81-34 20:34:27570Kfjihwyr HermannCHEM XCDOA9129-53-12 20:34:004.1[facility]annCHEM JMHII7739-61-11 20:34:0095 [facility]CHE[facility] WXZAF9762-03-48 20:34:0031[facility]annCHEM PANEL 2020-10-09 20:34:009.8[facility]annCHEM LTJCS7007-62-59 20:34:007.5[facility]annCHEM STYCY7662-21-61 20:34:004.3[facility]annCHEM DTWMY0247-83-76 20:34:003.2[facility]annCHEM ATNFI2227-34-80 20:34:001.3[facility]annCHEM YVZYV1988-19-42 20:34:001.1[facility]annCHEM QBIVL0458-96-15 20:34:73934 [facility]annCHEM VGODC7822-89-91 20:34:0014[facility]annCHEM PANEL 2020-10-09 20:34:0024[facility] GmqpncjYKPHRE3743-11-75 20:34:10233Ypxxwulv YkdgvjcHNFDFK4879-49-06 20:34:0034[facility] FskaaquKZKISK5158-69-98 20:34:77658 [facility] DyfwdplOEATQU4041-46-59 20:34:80271Zwonnzrl PhjomhtOANCQV1432-65-03 20:34:006.0[facility] HyxoqjbGGKYSP2961-10-10 20:34:67782Wibgonzt HermannSPECIAL ZHZRYHNUC9111-85-57 20:34:0010.5[facility] HermannTHYROID NEYVLF0563-77-61 12:41:00 Test Item Value Reference Range Interpretation Comments THYROID BIOPSY (test code = THYROID BX) RUN DATE: 07/01/20 [place] [facility] PAGE 1 RUN TIME: 1241 Specimen Inquiry RUN USER: INTERFACE PATIENT: HARISH MONZON LOC: JohnJOSE #: [id number] AGE/SX: 54/M ROOM: RE06/28/20ZANDER DR: Jazzmine Pizarro : 65 BED: DIS: STATUS: PAU SAHNI TLOC: SPEC #: [id number] RECD: 06/28/20 STATUS: NICOLASA ESCUDERO #: [id number] NATALEE: 06/28/[address]: Giuseppe Henderson MD ENTERED: 06/28/20 SP TYPE: BX NEEDLE OTHR DR: DOES_NOT KNOW Jazzmine Pizarro PAORDERED: PATHGM4/2, # OF BLOCKS/2, # OF SLIDES/4 TISSUES: A. THYROID GLAND, NOS - LEFT BIOPSY B. THYROID GLAND, NOS - RIGHT BIOPSY CLINICAL HISTORY BILATERAL THYROID NODULES FINAL MICROSCOPIC DIAGNOSIS A. LEFT THYROID, ULTRASOUND GUIDED CORE BIOPSY: FRAGMENT OF UNREMARKABLE FOLLICULAR EPITHELIUM NO CYTOLOGIC EVIDENCE OF PAPILLARY CARCINOMA B. RIGHT THYROID, ULTRASOUND GUIDED CORE BIOPSY: FRAGMENT OF UNREMARKABLE FOLLICULAR EPITHELIUM NO CYTOLOGIC EVIDENCE OF PAPILLARY CARCINOMA CPT: 41535 X 2 GROSS DESCRIPTION Specimen A: In formalin labeled with the patient's name, medical record number and "left thyroid" are multiple light del rosario cores of soft tissue ranging in length from 0.2 cm to 0.3 cm. The specimen is entirely submitted in cassette A1. Specimen B: In formalin labeled with the patient's name, medical record number and "right thyroid" are multiple light del rosario cores of soft tissue ranging in length from 0.2 cm to 0.3 cm. The specimen is entirely submitted in cassette B1. BL/DB/tb Signed SIGNATURE ON FILE Belinda Velazquez 07/01/20 1241 END OF REPORT - US NDL PLACEMENT (Bxg/Asp)2020-06-28 14:52:00 [facility] : 1965 Sex: M FAX: Jazzmine Cason [phone] [place]: St: REG Name: HARISH MONZON [facility] : 1965 Age/S: 54/M [address] Unit #: [id number] Loc: [place] [address] Phys: Jazzmine Pizarro Acct: [id number] Dis Date: Status: REG [place] PHONE #: [phone] Exam Date: 06/28/2020 1444 FAX #: [phone] Reason: NONTOXIC THYROID NODULE EXAMS: CPT CODE: [id number] USG NDL PLACEMENT (Bxg/Asp) 88782 ULTRASOUND-GUIDED THYROID BIOPSY (CORE BIOPSY) BILATERAL CPT code : 11324, 08745 for left side, 53783, 03166 for right side INDICATION: NONTOXIC THYROID NODULE, multiple thyroid nodules LOCATION: [place] [address] COMPARISON: None TECHNIQUE: Risk, benefits, procedure and alternatives were thoroughly discussed with the patient. The patient understood and gave both written and verbal consent. After appropriate lab level were checked and noted to be within normallimits. Patient was taken the ultrasound suite where patient was placed in a supine position with the neck hyperextended. The neck was prepped and draped in a sterile fashion. Under ultrasound guidance after local anesthetic 1 % Lidocaine without Epinephrine was injected into the subcutaneous region with the help of a 21 needle. Approximately 5 mL were utilized for superficial local anesthetic. Then a coaxial needle was placed in position. Multiple core biopsy were performed, total of 3-4. All needle were removed. Point Pressure was applied to the area until hemostasis was achieved. A small bandage was placed over the needle site. Repeat biopsy procedure of the contralateral side were done. Patient was discharged after approximately 15-20 minutes delay. Patient was instructed to followup with primary physician. Patient was also instructed to return to the emergent room if become short of breath, and or neck swelling or neck pain. Patient tolerated the procedure well without any complication. FINDINGS: Initial sonographic images of the right thyroid gland demonstrate presence of a small round solid nodule measure approximately 0.93 x 0.72 x 1.02 cm. Tiny mary of increased echogenicity suggest constipation is seen. This is subsequently biopsied uneventfully. There is presence of a 2nd nodule that has more of a complex cystic appearance in the right thyroid gland. It juxtaposed the more solid nodule above. Half of the lesion demonstrate presence of cystic changes. This was measure up to 0.94 cm and was not biopsy. PAGE 1 Signed Report (CONTINUED) FAX: Jazzmine Cason [phone] [place]: St: REG Name: HARISH MONZON [facility] : 1965 Age/S: 54/M [address] Unit #: [id number] Loc: [place] [address] Phys: Jazzmine Pizarro Acct: [id number] Dis Date: Status: [place] PHONE #: [phone] Exam Date: 06/28/2020 1444 FAX #: [phone] Reason: NONTOXIC THYROID NODULE EXAMS: CPT CODE: [id number] USG NDL PLACEMENT (Bxg/Asp) 79068 <Continued> The left thyroid gland demonstrate solid nodule tiny mary of hyperechogenicity suggests calcification. It measure at 0.99 x 0.79 x 0.74 cm. This was also subclavian biopsy uneventfully. IMPRESSION: Status post successful core biopsy of bilateral thyroid Solid nodule. at 4842 Reported and signed by: Giuseppe Henderson M.D. CC: Jazzmine AGUIRRE Technolog ist: Walker Lazo [facility] Trnscrd Date/Time/By: 06/28/2020 (8303) : By: Oksana PAGE 2 Signed Report FAX: Jazzmine Cason [phone] [place]: St: REG Name: HARISH MONZON [facility] : 1965 Age/S: 54/M [address] Unit#: [id number] Loc: [place] [address] Phys: Jazzmine Pizarro Acct: [id number] Dis Date: Status: [place] PHONE #: [phone] Exam Date: 06/28/2020 0083 FAX #: [phone] Reason: NONTOXIC THYROID NODULE EXAMS: CPT CODE: [id number] USG NDL PLACEMENT (Bxg/Asp) 84046 <Continued> Orig Print D/T: S: 06/28/2020 (4254) PAGE 3 Signed Report- USG NDL PLACEMENT (Bxg/Asp)2020-06-28 14:52:00 [facility] : 1965 Sex: M FAX: Jazzmine Cason [phone] [place]: St: REG Name: HARISH MONZON [facility] : 1965 Age/S: 54/M [address] Unit #: [id number] Loc: [place] [address] Phys: Jazzmine Pizarro Acct: [id number] Dis Date: Status: [place] PHONE #: [phone] Exam Date: 06/28/2020 1444 FAX #: [phone] Reason: NONTOXIC THYROID NODULE EXAMS: CPT CODE: [id number] USG NDL PLACEMENT (Bxg/Asp) 22240 ULTRASOUND-GUIDED THYROID BIOPSY (CORE BIOPSY) BILATERAL CPT code : 13101, 74307 for left side, 33945, 48862 for right side INDICATION: NONTOXIC THYROID NODULE, multiple thyroid nodules LOCATION: [facility] - COMPARISON: None TECHNIQUE: Risk, benefits, procedure and alternatives were thoroughly discussed with the patient. The patient understood and gave both written and verbal consent. After appropriate lab level were checked and noted to be within normallimits. Patient was taken the ultrasound suite where patient was placed in a supine position with the neck hyperextended. The neck was prepped and draped in a sterile fashion. Under ultrasound guidance after local anesthetic 1 % Lidocaine without Epinephrine was injected into the subcutaneous region with the help of a 21 needle. Approximately 5 mL were utilized for superficial local anesthetic. Then a coaxial needle was placed in position. Multiple core biopsy were performed, total of 3-4. All needle were removed. Point Pressure was applied to the area until hemostasis was achieved. A small bandage was placed over the needle site. Repeat biopsy procedure of the contralateral side were done. Patient was discharged after approximately 15-20 minutes delay. Patient was instructed to followup with primary physician. Patient was also instructed to return to the emergent room if become short of breath, and or neck swelling or neck pain. Patient tolerated the procedure well without any complication. FINDINGS: Initial sonographic images of the right thyroid gland demonstrate presence of a small round solid nodule measure approximately 0.93 x 0.72 x 1.02 cm. Tiny mary of increased echogenicity suggest constipation is seen. This is subsequently biopsied uneventfully. There is presence of a 2nd nodule that has more of a complex cystic appearance in the right thyroid gland. It juxtaposed the more solid nodule above. Half of the lesion demonstrate presence of cystic changes. This was measure up to 0.94 cm and was not biopsy. PAGE 1 Signed Report (CONTINUED) FAX: Jazzmine Cason [phone] [place]: St: REG Name: HARISH MONZON [facility] : 1965 Age/S: 54/M [address] Unit #: [id number] Loc: [place] [address] Phys: Jazzmine Pizarro Acct: [id number] Dis Date: Status: REG [place] PHONE #: [phone] Exam Date: 06/28/2020 0401 FAX #: [phone] Reason: NONTOXIC THYROID NODULE EXAMS: CPT CODE: [id number] USG NDL PLACEMENT (Bxg/Asp) 68174 <Continued> The left thyroid gland demonstrate solid nodule tiny mary of hyperechogenicity suggests calcification. It measure at 0.99 x 0.79 x 0.74 cm. This was also subclavian biopsy uneventfully. IMPRESSION: Status post successful core biopsy of bilateral thyroid Solid nodule. at 7182 Reported and signed by: Giuseppe Henderson M.D. CC: Jazzmine AGUIRRE Technolog ist: Walker Lazo [facility] Trnscrd Date/Time/By: 06/28/2020 (5385) : By: CharanjitMere PAGE 2 Signed Report FAX: Jazzmine Cason [phone] [place]: St: REG Name: HARISH MONZON [facility] : 1965 Age/S: 54/M [address] Unit#: [id number] Loc: [place] [address] Phys: Jazzmine Pizarro Acct: [id number] Dis Date: Status: REG [place] PHONE #: [phone] Exam Date: 06/28/2020 1444 FAX #: [phone] Reason: NONTOXIC THYROID NODULE EXAMS: CPT CODE: [id number] USG NDL PLACEMENT (Bxg/Asp) 29917 <Continued> Orig Print D/T: S: 06/28/2020 (7681) PAGE 3 Signed Report COVID 19 Asymptomatic IH OZ6596-55-00 13:47:00 Test Item Value Reference Range Interpretation Comments COVID 19 Asymptomatic IH AG (test NEGATIVE Negative code = COVNONPUIAG) CARDIAC SXMZENE5759-89-64 20:54:00<0.02[facility] ENZYMES 2020-06-02 20:54:00<0.02[facility] NhwnmguNQWWEHZLEK2571-81-75 18:49:003.7 [facility] TbuodvuMRMUKGUPWT0798-01-93 18:49:004.93[facility]annHEMATOLOGY 2020-06-02 18:49:0014.4[facility] CjnpblpPGQQABBKKM6390-99-56 18:49:0043.0[facility] VujeqqlXSLESQPYSW4002-47-78 18:49:0087.2[facility] YrolbqyEEYNJNBQXO2186-08-93 18:49:00 Test Item Value Reference Range Interpretation Comments MCH (test code = MCH) 29.2 pg 27.0-31.0 [facility] ZnqmzptUQGSLHYQJA6860-10-52 18:49:0033.5[facility]annHEMATOLOGY 2020-06-02 18:49:0013.5[facility] RxujjfrBMIHCCEKCX4122-26-67 18:49:06753Doahutdu YfelisnXAVOKPKCHM3746-10-23 18:49:007.3[facility] RkivjxaCWOTANIPDX6805-49-26 18:49:0067.0[facility] RgaodncCZVGDRAFIV8395-34-58 18:49:0022.7[facility] Aly SUCNOPPURZ7836-70-58 18:49:009.1[facility] RhwsrvlSARECWPCZQ9428-48-30 18:49:001.0 [facility] MuwjfvoWARKHUUUGT6519-85-63 18:49:000.2[facility]annHEMATOLOGY 2020-06-02 18:49:002.5[facility] ZxdubshQASKAMNTJW0648-39-20 18:49:000.8[facility] WhtvonqPUWGQYUSAP8184-27-74 18:49:000.3[facility] DvmgrrrCSMJNPYYSP7696-29-66 18:49:003.7[facility] CpovgurUZXVLAGOHM9722-71-83 18:49:004.93[facility] XPIPUSZVHH9988-09-44 18:49:0014.4[facility] FwaanrdSHTUXJUMGG2623-14-83 18:49:00 43.0[facility] EivowpvSKAGVLIUMQ9447-70-62 18:49:0087.2[facility]annHEMATOLOGY 2020-06-02 18:49:00 Test Item Value Reference Range Interpretation Comments MCH (test code = MCH) 29.2 pg 27.0-31.0 [facility] TlzxoteXETDUXFAER3642-18-02 18:49:0033.5[facility]annHEMATOLOGY 2020-06-02 18:49:0013.5[facility] GoglfvxYEPIVNQAJE0562-86-50 18:49:37220Kdxmnmzp PxpgxmtLTNQXUKCMD5372-41-73 18:49:007.3[facility] JjttdikHUCVWXXHFY1472-39-67 18:49:0067.0[facility] WducffvHITJMBOWOG2162-40-77 18:49:0022.7[facility] [place] QPJOGUWIBS2700-65-96 18:49:009.1[facility] WgtfcesHURZNFXNOP6523-97-56 18:49:001.0 [facility] RkkunicYELGWGGATU8408-92-99 18:49:000.2[facility]annHEMATOLOGY 2020-06-02 18:49:002.5[facility] DqarragQXIKWAKEOC8576-12-29 18:49:000.8[facility] JhstrptBVRKHTWQHD4990-12-87 18:49:000.3[facility] UvzfidgSSYZPOLPEY2451-81-44 18:13:00Not Detected (06/02/20 12:13 PM)[facility] DdjctxnFISLQXIVDG9901-69-62 18:13:00Not Detected (06/02/20 12:13 PM)[facility]annCARDIAC ZVIEUTQ4490-50-28 18:11:92502Xwcmopnr HermannCARDIAC AXAXHAA3593-12-88 18:11:00<0.02[facility] HermannCHEM XMLGA0651-70-85 18:11:69650Irxkwdcr HermannCHEM XMQNF6270-61-52 18:11:0014[facility]annCHE[facility] SRXZF6499-70-35 18:11:001.31[facility]annCHE[facility] SLUCN6765-39-34 18:11:31319Jjstraxm HermannCHEM NRSKN7537-35-27 18:11:004.8 [facility]annCHE[facility] CYYQK2155-95-18 18:11:91178Ankcwwhc HermannCHEM PANEL 2020-06-02 18:11:0030[facility]annCHEM GKTDT7468-77-54 18:11:006.8[facility]annCHE[facility] KNFOC0339-73-05 18:11:009.7[facility]annCHEM LMSVL7477-63-99 18:11:00 Test Item Value Reference Range Interpretation Comments B/C Ratio (test code = B/C Ratio) 11 1 6-25 [facility]annCHE[facility] VANNJ7313-25-00 18:11:008.5[facility]annCHEM PANEL 2020-06-02 18:11:004.0[facility]annCHE[facility] XAGFL5283-31-16 18:11:004.5[facility]annCHEM UMBHN8549-28-86 18:11:00 Test Item Value Reference Range Interpretation Comments A/G Ratio (test code = A/G Ratio) 0.9 1 0.7-1.6 [facility] HermannCHEM EHIQP1859-64-61 18:11:0029[facility] HermannCHEM PANEL 2020-06-02 18:11:0030[facility]annCHEM PRSLT5970-58-62 18:11:01857Ssaiquol HermannCHEM MJRHQ8902-71-31 18:11:000.9[facility]annCHE[facility] QTVKC3683-39-66 18:11:0061[facility]annCHEM RPELS1770-39-98 18:11:28789Ezgtsdye [place] WVGEALPMVX3858-48-67 18:11:00 Test Item Value Reference Range Interpretation Comments PT (test code = PT) 11.7 s 12.0-14.7 [facility] CyzypzaAEPDUZFRIU2167-94-80 18:11:00 Test Item Value Reference Range Interpretation Comments INR (test code = INR) 0.86 1 0.85-1.17 [facility] VhmodxtOZKDPVOMCC2205-79-51 18:11:00 Test Item Value Reference Range Interpretation Comments PTT (test code = PTT) 20.6 s 22.9-35.8 [facility] HermannCARDIAC FYRSUJW0068-74-41 18:11:30391Ntsigdwi HermannCARDIAC YCGDTFM0915-27-18 18:11:00<0.02[facility]annCHEM GTSRU0595-57-35 18:11:00 338[facility]annCHEM QIARL5271-52-07 18:11:0014[facility]annCHEM PANEL 2020-06-02 18:11:001.31[facility]annCHEM VNQBX1202-88-44 18:11:20155Qwpifnlf HermannCHEM OXCQS6963-22-32 18:11:004.8[facility] HermannCHEM HBKLW8982-62-51 18:11:71136Duxpwtvm HermannCHEM ACOMD4097-76-79 18:11:0030[facility]annCHEM YKBVN7300-39-75 18:11:006.8[facility] HermannCHEM ESSOV1628-63-21 18:11:009.7 [facility]annCHEM OBHUP0705-04-27 18:11:00 Test Item Value Reference Range Interpretation Comments B/C Ratio (test code = B/C Ratio) 11 1 6-25 [facility] HermannCHEM UVQOB1620-11-26 18:11:008.5[facility] HermannCHEM PANEL 2020-06-02 18:11:004.0[facility] HermannCHEM TTBIH3534-28-17 18:11:004.5[facility] HermannCHEM PFSAN1485-25-61 18:11:00 Test Item Value Reference Range Interpretation Comments A/G Ratio (test code = A/G Ratio) 0.9 1 0.7-1.6 [facility] HermannCHEM MHWIW7030-15-72 18:11:0029[facility] HermannCHEM PANEL 2020-06-02 18:11:0030[facility] HermannCHEM CGEEW1761-82-35 18:11:29973Qtlotwvp HermannCHEM PHLVY9354-85-23 18:11:000.9[facility] HermannCHEM RHVFH0851-62-07 18:11:0061[facility] HermannCHEM RYKCZ9578-35-38 18:11:32283Svdarwhk Aly BXSTYPXAGJ9728-59-64 18:11:00 Test Item Value Reference Range Interpretation Comments PT (test code = PT) 11.7 s 12.0-14.7 [facility] NyiteqfIVBMTKGJRQ7165-50-46 18:11:00 Test Item Value Reference Range Interpretation Comments INR (test code = INR) 0.86 1 0.85-1.17 [facility]7226[facility] 18:11:00 Test Item Value Reference Range Interpretation Comments PTT (test code = PTT) 20.6 s 22.9-35.8 [facility] CT HEAD/BRAIN W/O OOMJ3780-19-56 16:00:00 FAX: Jazmin Amezcua [phone] [place]: St: PRE Name: HARISH MONZON [facility] : 1965 Age/S: 53/M [address] Unit: [id number] Loc: [place] [address] Phys: Jacqueline Quiles MD Acct: [id number] Dis Date: Status: PRE ER PHONE #: [phone] Exam Date: 10/09/2019 1545 FAX #: [phone] Reason: headache, trauma EXAMS: CPT CODE: [id number] CT HEAD/BRAIN W/O CONT 87461 LOCATION: T18 EXAM: CT HEAD WITHOUT CONTRAST INDICATION: headache, trauma, COMPARISON: None. TECHNIQUE: Multiple CT images of the head were obtained. No intravenous contrast was given. Up-to-date CT equipment and radiation dose reduction techniques were utilized. Automatic exposure control was utilized. FINDINGS: No intracranial hemorrhage or extra-axial collection isseen. No midline shift or mass effect is identified. There is no territorial infarct. The ventricles, sulci and cisterns are normal. The calvarium is intact. Peripheral soft tissuesare normal. Paranasal sinuses and mastoid air cells are clear. IMPRESSION: No intracranial hemorrhage or territorial infarct. EXAM: CT CERVICAL SPINEWITHOUT CONTRAST INDICATION: , headache, trauma COMPARISON: None. TECHNIQUE: Axially oriented CT images were obtained through the entire cervical spine, without contrast. Coronal and sagittal reformations are also provided. Up-to-date CT equipment and radiation dose reduction techniques were utilized. Automatic exposurecontrol was utilized. FINDINGS: No fracture, malalignment or other bony abnormality is identified. Prevertebral soft tissues are normal. Deep soft tissue of the neck are normal. Visualized lung apices and upper mediastinum are normal. Limited views of the skull base, paranasal sinuses, and mastoid air cells are PAGE 1 Signed Report (CONTINUED) FAX: Jazmin Amezcua [phone] [place]: St: PRE Name: HARISH MONZON [facility] : 1965 Age/S: 53/M [address] Unit: [id number] Loc: [place] [address] Phys: Jacqueline Quiles MD Acct: [id number] Dis Date: Status: PRE ER PHONE #: [phone] Exam Date: 10/09/2019 1545 FAX #: [phone] Reason: headache, trauma EXAMS: CPT CODE: [id number] CT HEAD/BRAIN W/O CONT 64243 &lt ;Continued> unremarkable. IMPRESSION: No fracture or dislocation of the cervical spine. at 1600 Reported and signed by: Mauricio Al MD CC: Jazmin Wilcox MD Technologist: HENRY MCGHEE, RT(R,CT) Trnscrd Dt/Tm: 10/09/2019 (0888) t.SDR.JP19 Orig Print D/T: S: 10/09/2019 (6473 PAGE 2 Signed Report- CT C-SPINE W/O EDTI9087-57-91 16:00:00 FAX: Jazmin Amezcua [phone] [place]: St: PRE Name: HARISH MONZON [facility] : 1965 Age/S: 53/M [address] Unit: [id number] Loc: [place] [address] Phys: Jacqueline Quiles MD Acct: [id number] Dis Date: Status: PRE ER PHONE #: [phone] Exam Date: 10/09/2019 1545 FAX #: [phone] Reason: headache, trauma EXAMS: CPT CODE: [id number] CT C-SPINE W/O CONT 16690 LOCATION: T18 EXAM: CT HEAD WITHOUT CONTRAST INDICATION: headache, trauma, COMPARISON: None. TECHNIQUE: Mult iple CT images of the head were obtained. No intravenous contrast was given. Up-to-date CT equipment and radiation dose reduction techniques were utilized. Automatic exposure control was utilized. FINDINGS: No intracranial hemorrhage or extra-axial collection isseen. No midline shift or mass effect is identified. There is no territorial infarct. The ventr icles, sulci and cisterns are normal. The calvarium is intact. Peripheral soft tissuesare normal. Paranasal sinuses and mastoid air cells are clear. IMPRESSION: No intracranial hemorrhage or territorial infarct. EXAM: CT CERVICAL SPINEWITHOUT CONTRAST INDICATION: , headache, trauma COMPARISON: None. TECHNIQUE: Axially oriented CT images were obtained through the entire cervical spine, without contrast. Coronal and sagittal reformations are also provided. Up-to-date CT equipment and radiation dose reduction techniques were utilized. Automatic exposurecontrol was utilized. FINDINGS: No fracture, malalignment or other bony abnormality is identified. Prevertebral soft tissues are normal. Deep soft tissue of the neck are normal. Visualized lung apices and upper mediastinum are normal. Limited views of the skull base, paranasal sinuses, and mastoid air cells are PAGE 1 Signed Report (CONTINUED) FAX: Jazmin Grissom [phone] [place]: St: PRE Name: HARISH MONZON [facility] : 1965 Age/S: 53/M [address] Unit: [id number] Loc: [place] [address] Phys: Jacqueline Quiles MD Acct: [id number] Dis Date: Status: PRE ER PHONE #: [phone] Exam Date: 10/09/2019 1545 FAX #: [phone] Reason: headache, trauma EXAMS: CPT CODE: [id number] CT C-SPINE W/O CONT 37325 &lt ;Continued> unremarkable. IMPRESSION: No fracture or dislocation of the cervical spine. at 1600 Reported and signed by: Mauricio Al MD CC: Jazmin Wilcox MD Technologist: HENRY MCGHEE, RT(R,CT) Trnscrd Dt/Tm: 10/09/2019 (1600) t.SDR.JP19 Orig Print D/T: S: 10/09/2019 (3603 PAGE 2 Signed ReportCHEM KWVQU5108-10-64 12:13:37716Jrvxbdzz HermannCHEM PANEL 2019-05-24 12:13:0012[facility]annCHEM ICWQO3875-33-25 12:13:000.96[facility] HermannCHEM AZAJY1373-03-21 12:13:80200Uihhauup HermannCHEM UKVRV2205-70-42 12:13:003.4[facility] HermannCHEM VNRPD5321-52-60 12:13:99868Gxrblnkw [facility]annCHEM FPSXQ3331-13-02 12:13:0027[facility] HermannCHEM BWWUJ2010-26-62 12:13:008.9 [facility]annCHEM FXOAR4325-92-26 12:13:0090[facility] HermannCHEM PANEL 2019-05-24 12:13:008.4[facility] LclwtccUSMQFXKYPA2489-99-82 12:13:0071.7[facility] TugycgwYLUKFWKMUB3327-32-70 12:13:0013.5[facility] CcjqfkeWJTPIXEPWO2131-93-43 12:13:009.9[facility] UkbwbitXUPVJBCDHL2147-80-50 12:13:004.7[facility] [place] XKWNTKRYUU0559-64-76 12:13:000.2[facility] OcqpmwsLMEKRATFBD2297-10-55 12:13:003.9 [facility] TlxzobyQMXVDPCSKP2945-43-55 12:13:000.7[facility] HermannHEMATOLOGY 2019-05-24 12:13:000.5[facility] MnmpdkjJUPUDHIPDR3436-29-14 12:13:000.3[facility] PzityqzAFZYMXOSTC9624-18-33 12:13:005.5[facility] NxxnwdfAFJCQSILBT3469-12-55 12:13:004.75[facility] TwvagvdOYMUFAAKOV2489-91-09 12:13:0014.0[facility] [place] CIJWFEUWZH0018-58-57 12:13:0041.4[facility] VutxhpaLXIBWKJUHV2595-13-29 12:13:00 87.3[facility] DdcikbkMKGQBPEFAV7055-71-33 12:13:00 Test Item Value Reference Range Interpretation Comments MCH (test code = MCH) 29.6 pg 27.0-31.0 [facility] MvrwpymCEZCUECTER2704-54-52 12:13:0033.9[facility] HermannHEMATOLOGY 2019-05-24 12:13:0013.7[facility] OlxpbqdJUITSJLYPO1378-35-00 12:13:08455Mzwgfecp KuqvevqYEBDKAEFJE1837-25-88 12:13:007.1[facility] HermannCHEM MXGJS2833-56-57 12:13:12385Nctdtlvh HermannCHEM OPBON5740-46-69 12:13:0012[facility] HermannCHEM YFJZR8399-88-20 12:13:000.96[facility] HermannCHEM KAECS3318-85-11 12:13:29174 [facility]annCHEM OYWUQ5197-65-22 12:13:003.4[facility] HermannCHEM PANEL 2019-05-24 12:13:84482Chpcdeqj HermannCHEM SEKJB2967-55-31 12:13:0027[facility] HermannCHEM GJCRL7291-66-03 12:13:008.9[facility] HermannCHEM KYXWY0053-97-01 12:13:0090[facility] HermannCHEM EXRRB0731-15-20 12:13:008.4[facility] [place] EOBTWRGFPT6117-89-73 12:13:0071.7[facility] TyvrmlcVZJYMWAEHL6052-78-63 12:13:00 13.5[facility] EgnvzbpOLYDSRGBEZ4422-06-32 12:13:009.9[facility] HermannHEMATOLOGY 2019-05-24 12:13:004.7[facility] FrflsleTWKIDNAJDJ4254-32-69 12:13:000.2[facility] JstkpqbPVOTWLJVNP6299-55-27 12:13:003.9[facility] IpfbaqiIHDQBGXTGE1598-93-46 12:13:000.7[facility] EqrrpmzTXSLMXQQNQ2213-97-41 12:13:000.5[facility] Aly EANBSGJOEV5493-39-49 12:13:000.3[facility] NvukturRKTBLXQBLQ2365-37-33 12:13:005.5 [facility] EuyyovaGRAVJDILHQ8987-13-92 12:13:004.75[facility] HermannHEMATOLOGY 2019-05-24 12:13:0014.0[facility] HznctkcWPNMKFARKE3462-30-66 12:13:0041.4[facility] NeiozetYISJFCHNOA9729-35-14 12:13:0087.3[facility] NcudqgeDUIFKLHROH7398-27-76 12:13:00 Test Item Value Reference Range Interpretation Comments MCH (test code = MCH) 29.6 pg 27.0-31.0 [facility] XvkzpisAKHNTAFEYH4239-97-34 12:13:0033.9[facility]annHEMATOLOGY 2019-05-24 12:13:0013.7[facility] PsqbjsnUXBHKPLCGC6823-85-72 12:13:86020Xtwzdjex EaggepaLLWHAZPPLD1036-82-26 12:13:007.1[facility]annURINE AND VNQCN4353-18-01 10:03:00Amber *ABN*(05/23/19 4:03 AM)[facility] JSIWH8815-86-34 10:03:00Clear (05/23/19 4:03 AM)[facility] REOHY5125-36-16 10:03:00 Test Item Value Reference Range Interpretation Comments UA Spec Grav (test code = UA Spec 1.032 1 Grav) [facility] KKNKH0766-69-66 10:03:00 Test Item Value Reference Range Interpretation Comments UA pH (test code = UA pH) 5.0 1 5.0-8.0 [facility] KDFSA6148-23-41 10:03:00Negative *NA*(05/23/19 4:03 AM)[facility] JGOMJ1637-26-51 10:03:00Negative (05/23/19 4:03 AM) [facility] TQLBO7038-17-41 10:03:004.0[facility] HMDVL6921-51-33 10:03:00Negative (05/23/19 4:03 AM)[facility] FMHQT3629-47-68 10:03:00Negative (05/23/19 4:03 AM)[facility] CIBUQ7989-49-11 10:03:005[facility] ZTIWE3856-25-65 10:03:001 [facility] FVQTH0921-04-59 10:03:001[facility] OPIQE8621-71-64 10:03:00Amber *ABN*(05/23/19 4:03 AM)[facility] OFHRT6737-61-16 10:03:00Clear (05/23/19 4:03 AM)[facility] STOOL 2019-05-23 10:03:00 Test Item Value Reference Range Interpretation Comments UA Spec Grav (test code = UA Spec 1.032 1 Grav) [facility] SAFQG6019-63-65 10:03:00 Test Item Value Reference Range Interpretation Comments UA pH (test code = UA pH) 5.0 1 5.0-8.0 [facility] HGQVL5917-99-92 10:03:00Negative *NA*(05/23/19 4:03 AM)[facility] XVBFQ4794-05-96 10:03:00Negative (05/23/19 4:03 AM) [facility] GRGIE0074-60-35 10:03:004.0[facility] PKBXJ5011-79-70 10:03:00Negative (05/23/19 4:03 AM)[facility] PMAKW8144-74-90 10:03:00Negative (05/23/19 4:03 AM)[facility] UPRWL8198-54-57 10:03:005[facility] BOKOB1185-50-94 10:03:001 [facility] MXDJI7087-57-29 10:03:001[facility] HermannCHEM PANEL 2019-05-23 09:19:45189Xlktaskh HermannCHEM CBVCL1023-80-27 09:19:0011[facility] HermannCHEM IDAVF9811-38-81 09:19:001.07[facility] HermannCHEM GSXIW1023-00-64 09:19:84548Xqzkdajb [facility]annCHE[facility] YNBOK4815-39-80 09:19:003.4[facility] HermannCHEM OAJZK9910-42-31 09:19:98498Nfxlxpgz HermannCHEM JOFOY3091-63-37 09:19:0029 [facility]annCHEM WHSDO1383-34-46 09:19:008.4[facility] HermannCHEM PANEL 2019-05-23 09:19:008.6[facility] HermannCHEM FQTQX7656-27-80 09:19:0079[facility] CrtvbceHMBQSPWUKN6485-76-93 09:19:0071.0[facility] KqwrfeoFVMSOQQQBO8265-37-43 09:19:0014.7[facility] ThbkaeuIFLEGICHPR1311-19-15 09:19:0010.1[facility] [place] GWTYSMKPAG8422-34-69 09:19:004.0[facility] CenrbkpFAQQCRJCPE6955-24-51 09:19:000.2 [facility] JlbefcuFYVTLPGWBJ3843-38-53 09:19:004.0[facility] HermannHEMATOLOGY 2019-05-23 09:19:000.8[facility] QovwzwfRVDGNAJUCS6998-89-03 09:19:000.6[facility] TzyglluRCUPVZSKTT6269-44-59 09:19:000.2[facility] WafdfqmCZWADVETRF8893-57-62 09:19:005.7[facility] GbhlibgHWNMXOFQBR9068-94-68 09:19:004.70[facility] [place] ECMAYKRAFM2055-96-09 09:19:0013.9[facility] VesrpcgSOIZABQLMR2729-54-60 09:19:00 40.9[facility] HlsjvebKOFSNACZSH7984-16-51 09:19:0087.0[facility] HermannHEMATOLOGY 2019-05-23 09:19:00 Test Item Value Reference Range Interpretation Comments MCH (test code = MCH) 29.5 pg 27.0-31.0 [facility] RiffnmfTVTYCUDCYK3123-01-22 09:19:0033.9[facility]annHEMATOLOGY 2019-05-23 09:19:0013.9[facility] FjwhugxTMXUGQEPUW7570-41-45 09:19:71109Csasxbqa DiaoshkGHWZWZKFRS6428-21-73 09:19:007.2[facility] HermannCHEM VSZMV2954-63-12 09:19:76200Jlejxlat HermannCHEM WQEWV7643-35-76 09:19:0011[facility] HermannCHEM DQSKE2317-88-13 09:19:001.07[facility] HermannCHEM ECQPS8565-95-87 09:19:18787 [facility] HermannCHEM ETSNT8210-77-15 09:19:003.4[facility] HermannCHEM PANEL 2019-05-23 09:19:77945Ufdmhycj HermannCHEM UBUOV7122-58-56 09:19:0029[facility] HermannCHEM DSDFW5046-89-92 09:19:008.4[facility] HermannCHEM PGFUU8768-16-06 09:19:008.6[facility] HermannCHEM KKMIW1662-90-96 09:19:0079[facility] [place] ROVOFXCTXP2230-25-54 09:19:0071.0[facility] DkaigihRWUOHUNWYP0578-21-28 09:19:00 14.7[facility] TdcytqpNAOCQSBMWN4089-12-25 09:19:0010.1[facility] HermannHEMATOLOGY 2019-05-23 09:19:004.0[facility] IfmhkkvSPALWDKKBL0446-81-48 09:19:000.2[facility] ZodhedhXQDNENYGKT6661-86-85 09:19:004.0[facility] LqvfbqsAZSIZBSWPK6024-47-30 09:19:000.8[facility] HhvyrlsAKBJCESZLM8511-57-63 09:19:000.6[facility] [place] DOLNSWLHEV9200-36-81 09:19:000.2[facility] FiljrxyBWVZUQVFOL9953-46-94 09:19:005.7 [facility] YoirnhmFWLDNGAPIZ0908-60-24 09:19:004.70[facility]annHEMATOLOGY 2019-05-23 09:19:0013.9[facility] CseggpvBQCTLXKRWL2602-94-68 09:19:0040.9[facility] DcevaxsOPVBQQOOUL5286-44-74 09:19:0087.0[facility] YfilxnbWGYTCJFFYL1168-60-93 09:19:00 Test Item Value Reference Range Interpretation Comments MCH (test code = MCH) 29.5 pg 27.0-31.0 [facility] HrrvjuzPESCMKCTSX7566-08-11 09:19:0033.9[facility] 2019-05-23 09:19:0013.9[facility] BvmkgunFQTQQOOWDR0072-03-17 09:19:84655Voevhfin CxrvpmoYSUYMKBTIT1273-31-85 09:19:007.2[facility]annCHEM IBIGO8574-30-45 00:30:000.[facility]annCHE[facility] YHLCZ1637-93-13 00:30:001.0[facility]annCHE[facility] BJHGH8019-25-10 00:30:000.26[facility]annCHE[facility] YQPIP9979-44-26 00:30:001.0 [facility]annCHE[facility] CWHNX9548-81-39 16:39:37748Tvyxrhtb HermannCHEM PANEL 2019-05-22 16:39:0012[facility]annCHE[facility] ABOJS6395-25-01 16:39:001.12[facility]annCHE[facility] PZAQP0093-72-20 16:39:03795Vqbphghe HermannCHEM ERLJH7493-00-40 16:39:003.9[facility]annCHE[facility] YNPNE8950-50-28 16:39:17072Qjbdbsvc HermannCHEM IGVRK1192-14-47 16:39:0027[facility]annCHE[facility] JLBIC7970-29-91 16:39:008.6 [facility]CHE[facility] FBNKX9850-17-98 16:39:0075[facility]annCHEM PANEL 2019-05-22 16:39:0010.9[facility] CbhybiwYSOGSMQXZQ7919-29-61 16:39:007.3[facility] AnrkpssHVSEYDLPEC7047-85-32 16:39:005.24[facility] HgaawxhMOZSREOSPU0599-70-72 16:39:0015.4[facility] GtqrkdvCPSIPSYWWP3663-83-83 16:39:0046.4[facility] Aly OFFDDJBYEZ3206-40-18 16:39:0088.6[facility] XcrmcftUWFGAPCGPV0594-25-96 16:39:00 Test Item Value Reference Range Interpretation Comments MCH (test code = MCH) 29.3 pg 27.0-31.0 [facility] TxltafjGDZJJZGGLU1376-47-37 16:39:0033.1[facility]annHEMATOLOGY 2019-05-22 16:39:0014.3[facility] PfdmxmvFCNDPQYFWB4543-90-57 16:39:81260Ldfcsgez CvnpvsfRACLSYLTYZ5076-27-49 16:39:007.1[facility]annCHEM KCUPJ5018-91-06 16:39:52088Baoickzr HermannCHEM AEQHT6740-76-72 16:39:0012[facility]annCHEM NPZWI9136-78-95 16:39:001.12[facility]annCHE[facility] LWMNF8763-17-94 16:39:91774 [facility]annCHE[facility] DUSRR9211-39-98 16:39:003.9[facility]annCHEM PANEL 2019-05-22 16:39:96131Mvkqqavp HermannCHEM XJBXX3849-29-40 16:39:0027[facility]annCHEM ZFXDF2320-04-75 16:39:008.[facility]annCHEM BXBQL3874-93-08 16:39:0075[facility]annCHEM UXWAS4298-78-45 16:39:0010.9[facility] XBQSAFJRDY5350-37-34 16:39:007.3[facility] OllwrezWLYNNODRMK4195-24-17 16:39:00 5.24[facility] FmokgoqOWRMHWDWHD3905-08-72 16:39:0015.4[facility]annHEMATOLOGY 2019-05-22 16:39:0046.4[facility] QwybznkYJDVOIRMKN6870-81-52 16:39:0088.6[facility] MzxmvgtGETDKKIYZV0815-79-93 16:39:00 Test Item Value Reference Range Interpretation Comments MCH (test code = MCH) 29.3 pg 27.0-31.0 [facility] QawmvamVXTTLXWDCI4686-41-99 16:39:0033.1[facility]annHEMATOLOGY 2019-05-22 16:39:0014.3[facility] XqlaelxYREWHLXYJN5750-47-78 16:39:89650Wvaypuai VggnereROVYVVNLBA4907-26-11 16:39:007.1[facility]annCHEM LLENB9097-83-46 10:21:000.8[facility]annCHEM KBXJG4363-44-86 10:21:002.5[facility]annCHEM EUPVR7811-37-22 10:21:002.0[facility]annCHEM OMQAF2152-70-56 10:21:00 Test Item Value Reference Range Interpretation Comments B/C Ratio (test code = B/C Ratio) 13 1 6-25 [facility]annCHE[facility] AKIMT0633-30-43 10:21:006.7[facility]annCHEM PANEL 2019-05-21 10:21:003.1[facility]annCHEM IWYKW0262-02-40 10:21:003.6[facility]annCHEM HOIFX6742-56-26 10:21:00 Test Item Value Reference Range Interpretation Comments A/G Ratio (test code = A/G Ratio) 0.9 1 0.7-1.6 [facility]CHE[facility] XWFFP8270-22-80 10:21:0030[facility]annCHEM PANEL 2019-05-21 10:21:0011[facility]annCHEM EMAGU9259-08-97 10:21:0099[facility]annCHEM DWLQZ2367-84-01 10:21:002.0[facility]annCHEM CHEVR8157-88-79 10:21:000.08[facility] KkebhjrEQTRQBSYGB4405-21-58 10:21:0073.8[facility] [place] IUHXZRCVCR6243-08-36 10:21:0014.1[facility] UjahoqaTWSGXSCLPL0035-51-43 10:21:00 11.4[facility] YrjhrhnLALTWYNEKR5948-59-63 10:21:000.5[facility]annHEMATOLOGY 2019-05-21 10:21:000.2[facility] VxmxfwjBXVHLUDEFG0913-94-09 10:21:003.9[facility] UkxsbhaBVJMSUZEVC2807-66-55 10:21:000.7[facility] YqozmaxIUNYTKCJHI4518-60-81 10:21:000.6[facility]annSPECIAL DCBRXWIMV2721-08-15 10:21:008.4[facility] HermannCHEM DTRTA7946-28-80 10:21:000.8[facility]annCHEM YFJNP3179-50-76 10:21:002.5[facility]annCHEM WPTVN3895-07-66 10:21:002.0[facility]annCHEM BVXEF5715-69-52 10:21:00 Test Item Value Reference Range Interpretation Comments B/C Ratio (test code = B/C Ratio) 13 1 6-25 [facility]annCHE[facility] HBKND0164-49-27 10:21:006.7[facility]annCHEM PANEL 2019-05-21 10:21:003.1[facility]annCHEM DGCSA3698-72-33 10:21:003.6[facility]annCHEM ZNFGD1097-63-58 10:21:00 Test Item Value Reference Range Interpretation Comments A/G Ratio (test code = A/G Ratio) 0.9 1 0.7-1.6 [facility]annCHEM ZAPMH7885-61-30 10:21:0030[facility]annCHEM PANEL 2019-05-21 10:21:0011[facility]annCHEM XRVSO2234-91-94 10:21:0099[facility]annCHEM GFDFG7387-47-09 10:21:002.0[facility]annCHEM VQKCJ0986-60-21 10:21:000.08[facility] ViltkecQPAQOFYHMP9302-34-80 10:21:0073.8[facility] [place] XZAXHPQLOU7778-63-59 10:21:0014.1[facility] YdxoqvhNNQUJQHLQM4318-61-33 10:21:00 11.4[facility] ZjyjyavEPCKRCRJOM0370-69-65 10:21:000.5[facility]annHEMATOLOGY 2019-05-21 10:21:000.2[facility] DpstirjSBQABYTBFN1479-76-68 10:21:003.9[facility] VacgfxqKXGCRXLAFL8214-13-75 10:21:000.7[facility] NsajhbeMGJTMKVHSZ9250-39-94 10:21:000.6[facility]annSPECIAL VIIFVQYOM2278-17-25 10:21:008.4[facility]annCHEM XAWCG6182-69-68 07:09:001.7[facility]annCHEM XBEDO0713-60-61 07:09:001.7[facility] AND IQBNP5493-21-03 06:59:00Negative *NA*(05/20/19 12:59 AM)[facility] HEKMK1487-24-86 06:59:00 Negative (05/20/19 12:59 AM)[facility] KFYJB7611-01-43 06:59:00 4.0[facility] GLRSP4972-95-74 06:59:00Negative (05/20/19 12:59 AM)[facility] YCTZL5562-19-50 06:59:00Negative (05/20/19 12:59 AM)[facility] NHPNK8312-23-22 06:59:001[facility] GMRUD3103-08-63 06:59:001[facility] WJZLS4386-31-36 06:59:00 Yellow *NA*(05/20/19 12:59 AM)[facility] CVCTD9739-85-31 06:59:00 Clear (05/20/19 12:59 AM)[facility] LLQNB5444-83-86 06:59:00 Test Item Value Reference Range Interpretation Comments UA Spec Grav (test code = UA Spec 1.020 1 Grav) [facility] PPNFQ7653-88-63 06:59:00 Test Item Value Reference Range Interpretation Comments UA pH (test code = UA pH) 7.0 1 5.0-8.0 [facility] IPSZW3222-25-29 06:59:00Negative *NA*(05/20/19 12:59 AM)[facility] CYAHR8243-52-57 06:59:00Negative (05/20/19 12:59 AM)[facility] GKUUI8511-63-27 06:59:004.0[facility] LBSKQ2937-47-37 06:59:00Negative (05/20/19 12:59 AM)[facility] FJCGM9583-02-45 06:59:00Negative (05/20/19 12:59 AM)[facility] TCQQN2128-19-12 06:59:001[facility] JAKOQ5183-04-82 06:59:001 [facility] BEWPJ6639-76-06 06:59:00Yellow *NA*(05/20/19 12:59 AM) [facility] FPSKB0253-80-53 06:59:00Clear (05/20/19 12:59 AM) [facility] VIGZB7198-05-53 06:59:00 Test Item Value Reference Range Interpretation Comments UA Spec Grav (test code = UA Spec 1.020 1 Grav) [facility] MPWVQ2192-31-00 06:59:00 Test Item Value Reference Range Interpretation Comments UA pH (test code = UA pH) 7.0 1 5.0-8.0 [facility]annCHEM IPRQM0390-89-85 06:53:007.7[facility]annCHEM PANEL 2019-05-20 06:53:003.8[facility]annCHEM JDDMS1377-76-64 06:53:0037[facility]annCHEM XUXZU5048-81-62 06:53:0012[facility]annCHEM VFZBM1622-08-12 06:53:00587Sghfuwye HermannCHEM FDIOW2458-37-36 06:53:001.0[facility]annCHEM YLUDI3495-03-79 06:53:00 Test Item Value Reference Range Interpretation Comments B/C Ratio (test code = B/C Ratio) 11 1 6-25 [facility]CHE[facility] BEGXK0030-39-02 06:53:003.9[facility]annCHEM PANEL 2019-05-20 06:53:00 Test Item Value Reference Range Interpretation Comments A/G Ratio (test code = A/G Ratio) 1.0 1 0.7-1.6 [facility]CHE[facility] KPJDR3857-91-36 06:53:0091[facility]annCHEM PANEL 2019-05-20 06:53:001.9[facility] QywyndaVSWAIEOHZC1636-94-06 06:53:000.1[facility]annCHEM APKGX4390-04-45 06:53:007.7[facility]annCHEM TCAUA6359-15-41 06:53:003.8[facility]annCHEM WGEQS1294-62-29 06:53:0037[facility]annCHEM DVGSB5237-23-24 06:53:0012[facility]annCHEM LWGAV7536-93-31 06:53:79402 [facility]annCHEM SGAEM0309-08-66 06:53:001.0[facility]annCHEM PANEL 2019-05-20 06:53:00 Test Item Value Reference Range Interpretation Comments B/C Ratio (test code = B/C Ratio) 11 11-15 [facility]CHE[facility] XCFCU8463-70-84 06:53:003.9[facility]annCHEM PANEL 2019-05-20 06:53:00 Test Item Value Reference Range Interpretation Comments A/G Ratio (test code = A/G Ratio) 1.0 1 0.7-1.6 [facility]annCHE[facility] ZMHNS2884-58-85 06:53:0091[facility]annCHEM PANEL 2019-05-20 06:53:001.9[facility] NqbekxaCRAOGYAZXQ5235-32-02 06:53:000.1[facility] HermannCARDIAC KNHYVOW5390-47-06 16:32:00<0.02[facility]annCHEM PANEL 2018-09-06 16:32:0083[facility] VxqdamsGMQTJYRVASFW0782-94-76 16:32:009.0[facility] DczfxjaLKSFZQYGNGSB0562-81-56 16:32:00 Test Item Value Reference Range Interpretation Comments A/G Ratio (test code = A/G Ratio) 1.0 1 0.7-1.6 [facility] SmidxcpEHOWFPPWUPSH3519-76-01 16:32:004.0[facility] HermannELECTROLYTES 2018-09-06 16:32:00 Test Item Value Reference Range Interpretation Comments B/C Ratio (test code = B/C Ratio) 10 11-15 [facility] UeoujpmQZKMKYMBWRLS2513-28-08 16:32:0079[facility] HermannELECTROLYTES 2018-09-06 16:32:0026[facility] BffkqoxLYCZWYYKVAOY6895-41-06 16:32:008.8[facility] HmcickhMEVBLLWJRTCH8679-66-95 16:32:007.8[facility] WywzwjzSSAWUSCJKWCC9175-21-15 16:32:003.8[facility] TankxciBREULTUTATAX2192-51-40 16:32:36109Hhnpnuyv [place] JTIVOHJJSBBJ6925-32-88 16:32:0012[facility] PgrrsxwQLGREWSRPEMR6300-56-83 16:32:00 0.9[facility] FqlnzmyUZRWFGWNIERM6096-97-67 16:32:0024[facility] HermannELECTROLYTES 2018-09-06 16:32:43264Zdsbckdf AbnxmvaRFFQNKXEHFIN2366-83-45 16:32:004.0[facility] TveckniORCTNJDZGBBL6848-01-70 16:32:0011[facility] KfppftqKNMFGRLJHCRS6326-10-25 16:32:71669Udyygkgl QslmoytYKEWUVIMGBRZ1319-21-25 16:32:001.07[facility] [place] LVUQULBOYBWN6238-85-93 16:32:97327Xoqpieoh TvgstjdHPUIAPUICV8591-36-46 16:32:00 174[facility] BxralvkWUCHDHTLUN0699-67-92 16:32:0014.9[facility] HermannHEMATOLOGY 2018-09-06 16:32:005.47[facility] NnuevxiSPPLLUGBPI1591-83-21 16:32:007.5[facility] UmhbhctQEZWEASYFS8523-99-22 16:32:007.7[facility] PobzguvEYVSLCITVR1425-26-70 16:32:0088.3[facility] DnqdqdbRPKUEOAHUX6082-28-18 16:32:0033.6[facility] [place] AVFHPPPNIN7620-40-47 16:32:00 Test Item Value Reference Range Interpretation Comments MCH (test code = MCH) 29.7 pg 27.0-31.0 [facility] OzbxxhtSNCVLDTFWQ4348-46-48 16:32:0016.3[facility] HermannHEMATOLOGY 2018-09-06 16:32:0048.4[facility] JezctwzUQQOTNMYGU0650-21-43 16:32:000.5[facility] RzlreibUFGCITAWBH3238-09-92 16:32:006.8[facility] CpbjvnuOHZHJNMTHQ8515-31-35 16:32:0014.7[facility] KkztwuqPWWIOMHGLJ7390-53-64 16:32:005.9[facility] [place] MAGZTZGXDL6973-40-79 16:32:000.5[facility] UhhzemcYCTQJMOKGV1099-38-50 16:32:001.1 [facility] GdxhihuKBTEHJRIFI9663-90-76 16:32:0078.0[facility]UR[facility] STOOL 2018-09-06 16:32:00<1[facility] MLNGH9599-92-55 16:32:00<1 [facility] MCYFX9107-42-66 16:32:00 Test Item Value Reference Range Interpretation Comments UA pH (test code = UA pH) 5.0 1 5.0-8.0 [facility] RFXUB8276-08-93 16:32:00Negative (09/06/18 11:32 AM) [facility] MHOLJ7426-90-32 16:32:00Clear (09/06/18 11:32 AM) [facility] WWEYC7508-29-83 16:32:00 Test Item Value Reference Range Interpretation Comments UA Spec Grav (test code = UA Spec 1.032 1 Grav) [facility] IWCSD9294-29-46 16:32:00Yellow *NA*(09/06/18 11:32 AM) [facility] WHPRG6425-52-91 16:32:00Negative *NA*(09/06/18 11:32 AM)[facility] COAWT7550-58-04 16:32:00None Seen (09/06/18 11:32 AM)[facility] IGXDX0796-09-98 16:32:00Negative (09/06/18 11:32 AM) [facility] EQZPL3717-01-32 16:32:00Negative (09/06/18 11:32 AM) [facility] KNJXX3300-11-90 16:32:00Negative (09/06/18 11:32 AM) [facility] BLYNV3664-71-28 16:32:00Negative *NA*(09/06/18 11:32 AM)[facility] HermannCARDIAC QFLCITH4743-61-29 16:32:00<0.02[facility] [place] CHEM IBMGB5935-62-52 16:32:0083[facility] AllgnveWSJYXSTFNFEY5854-32-52 16:32:00 9.0[facility] YtmtgluDSWJKFCNLTOS8762-96-44 16:32:00 Test Item Value Reference Range Interpretation Comments A/G Ratio (test code = A/G Ratio) 1.0 1 0.7-1.6 [facility] UhhdpuyTRUWVQAZKDWW5263-22-18 16:32:004.0[facility] HermannELECTROLYTES 2018-09-06 16:32:00 Test Item Value Reference Range Interpretation Comments B/C Ratio (test code = B/C Ratio) 10 1 6-25 [facility] IzkvpzpJCEOIQGLUVGG8416-94-36 16:32:0079[facility] HermannELECTROLYTES 2018-09-06 16:32:0026[facility] YocvszcTKFMMESZTCJY1547-90-98 16:32:008.8[facility] WlsygyyBMLPLGANWKXI2123-68-35 16:32:007.8[facility] BjsaidkUMBQLDQMLBPA7577-07-95 16:32:003.8[facility] QtxoudySUGYWWVZCGMO2860-33-04 16:32:49842Wmubwuij [place] VOEVFBPUVTDV2820-45-54 16:32:0012[facility] ScxhevpZEGWGRYONYNE1704-56-71 16:32:00 0.9[facility] ExtwsmkMMZIEYGLRUJV4429-32-50 16:32:0024[facility] HermannELECTROLYTES 2018-09-06 16:32:90993Jlpgiqym RvjjbdeYUHNFJWZHFLX6969-72-88 16:32:004.0[facility] CfexghcXPIUIGRDVDRL7863-09-79 16:32:0011[facility] WulwantAGFUJUTCLUBE6256-37-85 16:32:19190Xtwoggtz VzscbryYTDOQBJKILYA2671-46-39 16:32:001.07[facility] OBYIACBVLATN1535-53-56 16:32:33405Dhjfdpyp QviearaOCBGHYAYDR5639-42-64 16:32:00 174[facility] TxozdvvEQEOWNSSVW1210-62-27 16:32:0014.9[facility] HermannHEMATOLOGY 2018-09-06 16:32:005.47[facility] DngqeoqDPJMRKXZQI4626-25-39 16:32:007.5[facility] OsxxymbUOBOSUSIPI8289-10-12 16:32:007.7[facility] EgxdtupXABQFERVGC6208-06-65 16:32:0088.3[facility] FyzmfxiFDPWIBHPMU2294-52-27 16:32:0033.6[facility] FGLWPZBYMV5188-80-23 16:32:00 Test Item Value Reference Range Interpretation Comments MCH (test code = MCH) 29.7 pg 27.0-31.0 [facility] BrrxzfkGDHUSJFTLK0786-37-50 16:32:0016.3[facility] HermannHEMATOLOGY 2018-09-06 16:32:0048.4[facility] LfcudllJHMBKYECHG9225-65-85 16:32:000.5[facility] ImllqouEVUPQCQYUZ9722-98-99 16:32:006.8[facility] IzpaqqsKPXRCPCHFW4772-43-63 16:32:0014.7[facility] UlwqbebDXYVUGQXLL4430-66-29 16:32:005.9[facility] [place] VPUZPDGKHO0292-44-42 16:32:000.5[facility] AqybopaUPFTVCJOUQ7452-81-09 16:32:001.1 [facility] RztazrwQTVSWUXMRQ5014-70-83 16:32:0078.0[facility] STOOL 2018-09-06 16:32:00<1[facility] BFENM5603-11-51 16:32:00<1 [facility] ECBNN6440-46-55 16:32:00 Test Item Value Reference Range Interpretation Comments UA pH (test code = UA pH) 5.0 1 5.0-8.0 [facility] UGLFN0955-78-19 16:32:00Negative (09/06/18 11:32 AM) [facility] WSAAW9895-94-40 16:32:00Clear (09/06/18 11:32 AM) [facility] BRZMA5958-12-58 16:32:00 Test Item Value Reference Range Interpretation Comments UA Spec Grav (test code = UA Spec 1.032 1 Grav) [facility] POWRN1700-08-64 16:32:00Yellow *NA*(09/06/18 11:32 AM) [facility] JTTMP5430-80-99 16:32:00Negative *NA*(09/06/18 11:32 AM)[facility] GFGCD4743-78-15 16:32:00None Seen (09/06/18 11:32 AM)[facility] VDFJO8739-63-62 16:32:00Negative (09/06/18 11:32 AM) [facility] BHCJF2106-60-81 16:32:00Negative (09/06/18 11:32 AM) [facility] UJPXF5778-21-59 16:32:00Negative (09/06/18 11:32 AM) [facility] XJRLR4776-05-23 16:32:00Negative *NA*(09/06/18 11:32 AM)[facility]annCHEM VWAWC5287-94-28 06:28:001.3[facility]annCHEM PANEL 2014-02-15 06:28:001.3[facility] JhpttosGHSDWSGUNU3249-15-16 06:24:070.1[facility] XdiqlncPZDLSGNSLD8643-88-73 06:24:076.0[facility] JtzgohaFBICQQVHHW7121-58-34 06:24:071.6[facility] HuhvmwcNWCHOAICUF0852-29-65 06:24:070.8[facility] NXLSKDVVTM6518-96-13 06:24:0771.6[facility] HermannCHEM XDLGH1904-51-53 06:24:07 0.7[facility]annCHEM VVINF1537-97-62 06:24:0711[facility]annCHEM PANEL 2014-02-15 06:24:0712.0[facility]annCHEM SLDVK3348-96-01 06:24:074.6[facility]annCHEM XXVER3192-51-55 06:24:0759[facility]annCHEM LPCWH3973-74-67 06:24:0723[facility]annCHEM VFSKQ7114-37-28 06:24:0750[facility]annCHEM JCPWB5131-92-51 06:24:070.8[facility]annCHEM KAOZJ0353-41-48 06:24:56086 [facility]annCHEM UDIWO8705-97-10 06:24:073.4[facility]annCHEM PANEL 2014-02-15 06:24:079.4[facility]annCHEM NYYLZ1467-96-25 06:24:078.0[facility]annCHEM GRXHU1936-66-51 06:24:30489Pwldgsdw HermannCHEM VLQCQ7168-80-39 06:24:0727[facility]annCHEM HJRCF5748-19-63 06:24:071.4[facility]annCHEM LYNRD4301-47-51 06:24:0715[facility]annCHEM SHEXM5384-66-47 06:24:82554 [facility]annCHEM IGHTJ5751-23-70 06:24:074.0[facility]annCHEM PANEL 2014-02-15 06:24:71820Kahyhten ZbhhlfcESJAASIJZD8968-48-92 06:24:078.4[facility] FhqlwntKLVQSQJGLO6189-64-84 06:24:074.97[facility] BebmpspRPPEFJWVKR3626-03-24 06:24:077.3[facility] LevhellBNMQXKDYQH2548-33-41 06:24:0736.1[facility] [place] HHISHQEJJO8229-24-19 06:24:18309Duryylta OsxfccrZDRRZNZQLB9242-13-47 06:24:07 13.4[facility] JcmaqtvENHLEVGXCE5289-61-01 06:24:0742.7[facility]annHEMATOLOGY 2014-02-15 06:24:0715.4[facility] OvrokcqKKGRRDTEEN9127-30-79 06:24:07 Test Item Value Reference Range Interpretation Comments MCH (test code = MCH) 31.0 pg 27.0-31.0 [facility] OepdpuzGGGUSQZNMQ1925-43-63 06:24:0785.9[facility]annHEMATOLOGY 2014-02-15 06:24:0718.6[facility] KbbmuphVGSMQMCORM5494-68-09 06:24:070.3[facility] VgulhltPZMWPXENOK2274-04-32 06:24:079.4[facility] BayyegjZFCJOUBRIV6299-54-61 06:24:070.1[facility] CvepvjbLGPNYQLTHQ9818-31-00 06:24:076.0[facility] PJALAUEXXK3139-16-22 06:24:071.6[facility] BkbtdhvZFZPAHNNOW6235-05-08 06:24:070.8 [facility] LoeqftrIYHNIQZLQA4974-89-04 06:24:0771.6[facility] HermannCHEM PANEL 2014-02-15 06:24:070.7[facility]annCHEM PLTGF4845-41-67 06:24:0711[facility]annCHEM DQPVL0681-14-49 06:24:0712.0[facility]annCHEM WDTIA9997-25-87 06:24:074.6[facility]annCHEM ALNXQ7102-11-57 06:24:0759[facility]annCHEM MFSZG5165-19-06 06:24:0723[facility]annCHEM HZBPJ0444-77-19 06:24:0750 [facility]annCHEM ZWBKD4934-03-21 06:24:070.8[facility]annCHEM PANEL 2014-02-15 06:24:18551Hofderwj HermannCHEM FJHTI1410-28-33 06:24:073.4[facility] HermannCHEM MRXZS9381-67-27 06:24:079.4[facility]annCHEM JWTJY7294-83-53 06:24:078.0[facility]annCHEM NJYGT4245-35-14 06:24:09766Oqttihtb HermannCHEM YIYTO0018-09-81 06:24:0727[facility]annCHEM YPQZU0989-39-15 06:24:071.4 [facility]annCHEM WATEM1292-73-37 06:24:0715[facility]annCHEM PANEL 2014-02-15 06:24:50667Stzxfltp HermannCHEM DRHEK2036-55-72 06:24:074.0[facility] HermannCHEM OJIUX7171-71-37 06:24:18312Aatjthxu KfcterxWETZKIJNWD0171-91-07 06:24:078.4[facility] AhbgjlkRQZGMKDYXP7464-46-42 06:24:074.97[facility] [place] EXIEKAGVAV4165-38-98 06:24:077.3[facility] EguuiroQHRRXDUKJM2900-71-89 06:24:07 36.1[facility] ZholwitTUTBHMKHYU2055-08-03 06:24:79919Pplhvltg HermannHEMATOLOGY 2014-02-15 06:24:0713.4[facility] GcsjdexYNROMTOCXR5060-63-67 06:24:0742.7[facility] ZabvlbzHGASEEXKJQ5173-20-57 06:24:0715.4[facility] FigifkiSNUTKZFBCL3475-22-82 06:24:07 Test Item Value Reference Range Interpretation Comments MCH (test code = MCH) 31.0 pg 27.0-31.0 [facility] SgauqpbJBFUSMTYRY1041-89-72 06:24:0785.9[facility] HermannHEMATOLOGY 2014-02-15 06:24:0718.6[facility] NykfihiHJVZUPTYQT3470-79-09 06:24:070.3[facility] HyuiubkNQNNQBTJUV7615-24-55 06:24:079.4[facility] AND JFHFZ7209-01-67 07:43:00Performed (11/20/13 2:43 AM)[facility] OFNTY1742-47-32 07:43:00Clear (11/20/13 2:43 AM)[facility] JQBJV0606-33-96 07:43:00Yellow *NA*(11/20/13 2:43 AM)[facility] IXNJY1199-53-76 07:43:00 Test Item Value Reference Range Interpretation Comments UA pH (test code = UA pH) 5.5 1 5.0-8.0 [facility] YWTXY7929-63-26 07:43:00>=1.030 *ABN*(11/20/13 2:43 AM)[facility] WBDHD8384-80-79 07:43:00Negative (11/20/13 2:43 AM) [facility] FHYZK4485-05-44 07:43:00Negative (11/20/13 2:43 AM) [facility] AQDJW7551-79-13 07:43:00Negative *NA*(11/20/13 2:43 AM) [facility] FJYMC3782-66-91 07:43:00Negative (11/20/13 2:43 AM) [facility] HIYTK7547-26-38 07:43:00Negative (11/20/13 2:43 AM) [facility] OGFCO9563-95-91 07:43:000.2[facility] MTEFO9785-43-47 07:43:00Negative (11/20/13 2:43 AM)[facility] SZWPL1481-79-19 07:43:00Negative *NA*(11/20/13 2:43 AM)[facility] PSYAA5028-95-98 07:43:00Performed (11/20/13 2:43 AM)[facility] DUCSP7357-91-02 07:43:00Clear (11/20/13 2:43 AM)[facility] STOOL 2013-11-20 07:43:00Yellow *NA*(11/20/13 2:43 AM)[facility] STOOL 2013-11-20 07:43:00 Test Item Value Reference Range Interpretation Comments UA pH (test code = UA pH) 5.5 1 5.0-8.0 [facility] BDSTZ6803-83-33 07:43:00>=1.030 *ABN*(11/20/13 2:43 AM)[facility] NKWIX8876-72-27 07:43:00Negative (11/20/13 2:43 AM) [facility] MNKAW7713-08-58 07:43:00Negative (11/20/13 2:43 AM) [facility] SOQNN4488-35-93 07:43:00Negative *NA*(11/20/13 2:43 AM) [facility] OLGSC8200-71-61 07:43:00Negative (11/20/13 2:43 AM) [facility] JMNUC4215-97-61 07:43:00Negative (11/20/13 2:43 AM) [facility] NMIYC9494-01-57 07:43:000.2[facility] ZAQLG0455-02-26 07:43:00Negative (11/20/13 2:43 AM)[facility] CSOQV2302-97-29 07:43:00Negative *NA*(11/20/13 2:43 AM)[facility]annCHEM PANEL 2013-11-20 07:20:002.1[facility] HermannCHEM CCOBJ5912-05-44 07:20:0091[facility] HermannCHEM DNYFU2050-65-14 07:20:0069[facility] HermannCHEM UFNHM2540-25-82 07:20:0039[facility]annCHEM FDCWB4675-97-24 07:20:0057[facility] HermannCHEM VEBGU0073-79-54 07:20:96040Getehxci HermannCHEM GPWHO6716-51-42 07:20:001.1 [facility]annCHEM BTHZY9343-25-96 07:20:65138Rlahvsbs HermannCHEM PANEL 2013-11-20 07:20:000.8[facility] HermannCHEM RTVSS9505-59-94 07:20:21436Vllssuxa HermannCHEM CMMMK7068-29-35 07:20:75344Ftfbegkk HermannCHEM TRZRE3906-97-31 07:20:004.6[facility] HermannCHEM GYYIU2364-20-03 07:20:15719Nuslqfur HermannCHEM ZSZVN8662-70-45 07:20:0014[facility]annCHEM JFWKK8875-67-40 07:20:003.6 [facility]annCHE[facility] ONZAE3110-27-59 07:20:009.2[facility] HermannCHEM PANEL 2013-11-20 07:20:0025[facility] HermannCHEM LYAGY4942-51-88 07:20:007.8[facility] HermannCHEM XSLUB0048-72-11 07:20:000.9[facility] HermannCHEM EPQXJ3852-07-16 07:20:0013.[facility] HermannCHEM OEQHA0443-28-00 07:20:004.2[facility] HermannCHEM XYHQU2951-05-74 07:20:0018[facility] EndfwvhLKWLCTJLLM1477-41-42 07:20:00 Test Item Value Reference Range Interpretation Comments PTT (test code = PTT) 28.9 s 22.9-35.8 [facility] RcojropZECOTKIZWO6862-61-40 07:20:00 Test Item Value Reference Range Interpretation Comments PT (test code = PT) 12.8 s 12.0-14.7 [facility] NnfyegwLARKQBYTAF7885-59-93 07:20:000.97[facility] HermannHEMATOLOGY 2013-11-20 07:20:007.2[facility] ZmvibilBVXRJWEZJT9941-69-44 07:20:005.46[facility] ViyylceXXOMBOJYVG0644-22-10 07:20:0014.0[facility] QfxlxkkZZIQOLJIIK3505-69-43 07:20:44239Ctwquudu XebwpwxKIXZBBULHD4123-54-37 07:20:007.6[facility] [place] ZZTUYKSAVM8191-59-63 07:20:0087.1[facility] YmrmwweLKLLJZAIFZ6031-13-63 07:20:00 Test Item Value Reference Range Interpretation Comments MCH (test code = MCH) 30.5 pg 27.0-31.0 [facility] UgaiqauFZUVKAOKGI5825-07-43 07:20:0035.0[facility] HermannHEMATOLOGY 2013-11-20 07:20:0047.6[facility] JujanhkIXGMBLXVHY1408-80-34 07:20:0016.6[facility] CfguskaQXRZVXFANB3682-30-51 07:20:0061.0[facility] TrannqaBAZYKCKDRU1345-13-75 07:20:0010.1[facility] HbwuozaSRKGHDFAES6943-47-81 07:20:0027.7[facility] [place] EDVMDZIZBQ5293-72-08 07:20:000.9[facility] PhislzqETOUNRDGUO3656-24-00 07:20:000.1 [facility] UsemznkXSZFOBYIEY2614-13-98 07:20:000.7[facility] HermannHEMATOLOGY 2013-11-20 07:20:000.3[facility] DczqwmtXEOIILQZYZ8103-98-19 07:20:002.0[facility] PadybicKKYWZOTDWQ8788-19-87 07:20:004.4[facility] HermannCHEM XADCS7003-25-35 07:20:002.1[facility] HermannCHEM YTCWS4094-08-01 07:20:0091[facility] HermannCHEM KZZPB0673-24-40 07:20:0069[facility] HermannCHEM ZJSAW9550-53-26 07:20:0039 [facility]annCHEM MWCKZ7613-46-91 07:20:0057[facility] HermannCHEM PANEL 2013-11-20 07:20:71338Ywkpdbai HermannCHEM HQDLZ9511-97-27 07:20:001.1[facility] HermannCHEM EBWCV5487-38-19 07:20:75692Zncebhzo HermannCHEM JMCTX8165-01-16 07:20:000.8[facility] HermannCHEM AWQJD7185-36-53 07:20:06105Mcyyfehd HermannCHEM DHCJF7068-02-12 07:20:38459Cfmmyuuh HermannCHEM YPPTR1574-74-19 07:20:004.6 [facility]annCHEM XGXQS4728-01-77 07:20:85021Psryyfof HermannCHEM PANEL 2013-11-20 07:20:0014[facility] HermannCHEM QHGAH4715-14-07 07:20:003.6[facility] HermannCHEM BLLFC0211-14-99 07:20:009.2[facility] HermannCHEM UQLRN1222-29-82 07:20:0025[facility] HermannCHEM VGWLV4760-16-00 07:20:007.8[facility] HermannCHEM RXRYG7399-99-97 07:20:000.9[facility] HermannCHEM NXQGF5642-35-33 07:20:0013.6 [facility]annCHEM BLLMU9909-76-79 07:20:004.2[facility] HermannCHEM PANEL 2013-11-20 07:20:0018[facility] DeyicowLJZQQSQPSF4044-72-79 07:20:00 Test Item Value Reference Range Interpretation Comments PTT (test code = PTT) 28.9 s 22.9-35.8 [facility] PbelnseXZOIEWOSIZ8818-82-09 07:20:00 Test Item Value Reference Range Interpretation Comments PT (test code = PT) 12.8 s 12.0-14.7 [facility] HejysksEAQMSWAXZR8264-03-47 07:20:000.97[facility] HermannHEMATOLOGY 2013-11-20 07:20:007.2[facility] QxgroebSCJZONQPKS5716-48-53 07:20:005.46[facility] AkkmjctPMPYRHPEZQ4643-63-45 07:20:0014.0[facility] CqsvjmlVJMXKLIWBA6315-48-06 07:20:34186Qmyguzuo GxmhrfpZLCNQKLCKJ7018-62-50 07:20:007.[facility] [place] XTEIRHDHGO3092-58-45 07:20:0087.1[facility] CgdbixiDJHZSQSUDH1999-49-96 07:20:00 Test Item Value Reference Range Interpretation Comments MCH (test code = MCH) 30.5 pg 27.0-31.0 [facility] ZybnhriCZANQQTSNT0337-10-25 07:20:0035.0[facility] HermannHEMATOLOGY 2013-11-20 07:20:0047.6[facility] FtnqihmLUPKKMDALH1797-98-28 07:20:0016.6[facility] DvwhkmrZHZRCHPDLG1698-46-79 07:20:0061.0[facility] OiiviltHZHQNZFNWY8480-69-08 07:20:0010.1[facility] DfdxhbwDQXJACGPGE7199-82-52 07:20:0027.7[facility] Aly TUELIVSRGF0769-74-55 07:20:000.9[facility] ZzaulueZTBNZJQJCX3481-67-61 07:20:000.1 [facility] HfbdpmePLCBEFQOEP4241-64-45 07:20:000.7[facility] HermannHEMATOLOGY 2013-11-20 07:20:000.3[facility] XinozmnGRXTHRCHBW9628-93-82 07:20:002.0[facility] SoqqagrVRJEAFZJIQ2362-57-61 07:20:004.4[facility] [place]
[2021-09-27 18:25] LABS: Urine Blood Negative (Negative); Urine Glucose 3+ (Negative); Urine Protein Negative (Negative)
[2021-09-27] MEDS ORDERED: ACETAMINOPHEN 500 MG TAB ONE (20:59)
[2021-09-27 21:32] LABS: Absolute Lymphocytes (CBC) 0.6 K/uL (0.7-4.9); Hematocrit 39.4 % (39.6-49.0); Lymphocytes % 12.3 % (15.3-44.8); MPV 7.2 fL (7.6-11.3); RBC Red Blood Cell Count 5.27 M/uL (4.33-5.43)
[2021-09-27 21:51] LABS: Albumin 3.2 g/dL (3.4-5.0); Bilirubin Total 1.6 mg/dL (0.2-1.0); Potassium 3.3 mmol/L (3.5-5.1); Protein, Total 7.3 g/dL (6.4-8.2)
[2021-09-27] MEDS ORDERED: FAMOTIDINE 20 MG/2 ML VIAL IV ONE (22:06)
[2021-09-27] MEDS ORDERED: ONDANSETRON 4 MG/2 ML VIAL ONE (22:06)
[2021-09-27 22:11] LABS: SARS-COV-2 RT PCR NEGATIVE (NEGATIVE)
--- NOTE | 2021-09-27 22:18 | RAD REPORT ---
EXAM DESCRIPTION: CTAbdomen Pelvis W Contrast - 09/27/2021 10:08 pm CLINICAL HISTORY: Nausea/vomiting COMPARISON: <Comparisons> TECHNIQUE: CT of the abdomen and pelvis was performed. All CT scans are performed using dose optimization technique as appropriate and may include automated exposure control or mA/KV adjustment according to patient size. FINDINGS: Lower chest: Small hiatal hernia. Circumferential thickened distal esophagus which may ref lect esophagitis. Liver: No acute abnormality or suspicious lesions. Biliary: Cholecystectomy Stomach: No significant focal abnormality. Duodenum: No significant focal abnormality. Pancreas: No significant abnormality. Spleen: No significant abnormality. Adrenal: No suspicious lesions. Kidney/ureter: No hydronephrosis. No renal calculi. Too small to characterize and/or benign appearing renal lesions are noted. Retroperitoneum: No retroperitoneal adenopathy. Vascular: No aneurysm. Bowel: Partial bowel resection.. Diverticulosis. No evidence of acute diverticulitis. No bowel obstru ction is identified. No appendix identified. It is presumably surgically absent. Peritoneum: Ventral abdominal wall laxity. Bladder: Grossly unremarkable. Reproductive: No adnexal masses. Bones: No acute fracture. Other: n/a IMPRESSION: No acute intra-abdominal or pelvic finding.
--- NOTE | 2021-09-27 23:40 | EDPHYS ---
Physician Documentation [facility] Name: Luigi Butterfield Age: 55 yrs Sex: Male : 1965 Arrival Date: 09/27/2021 Time: 18:09 Bed 18 Private MD: ED Physician Neil Darnell HPI: 09/27 21:00 This 55 yrs old Male presents to ER via Ambulatory with complaints of Nausea, Fever, cp Pain With Urination. 21:00 The patient reports fever, with an emergency department temperature of 101.4 degrees cp Fahrenheit. Onset: The symptoms/episode began/occurred today. Associated signs and symptoms: Pertinent positives: nausea, runny nose, dysuria, Pertinent negatives: abdominal pain, cough, diarrhea, headache, vomiting. Severity of symptoms: in the emergency department the symptoms are unchanged despite home interventions. Historical: - Allergies: 18:24 PENICILLINS; ss - PMHx: 18:24 Diabetes mellitus; Sleep apnea; ss - PSHx: 18:24 Cholecystectomy; hernia repair; ss - Immunization history:: Client reports receiving the 2nd dose of the Covid vaccine. - Social history:: Smoking status: Patient denies any tobacco usage or history of. ROS: 21:05 Constitutional: Positive for fever, Negative for body aches, poor PO intake. cp 21:05 ENT: Positive for rhinorrhea, Negative for drainage from ear(s), ear pain, sore throat, cp difficulty swallowing, difficulty handling secretions. 21:05 Cardiovascular: Negative for chest pain, edema, palpitations. 21:05 Respiratory: Negative for cough, shortness of breath, wheezing. 21:05 Abdomen/GI: Positive for nausea, Negative for abdominal pain, vomiting, diarrhea, constipation. 21:05 : Positive for burning with urination. 21:05 Neuro: Negative for altered mental status, dizziness, headache, weakness. 21:05 All other systems are negative. Exam: 21:15 Constitutional: The patient appears in no acute distress, alert, awake, cp non-diaphoretic, non-toxic, well developed, well nourished, febrile. 21:15 Head/Face: Normocephalic, atraumatic. cp 21:15 Eyes: Periorbital structures: appear normal, Conjunctiva: normal, no exudate, no injection, Sclera: no appreciated abnormality, Lids and lashes: appear normal, bilaterally. 21:15 ENT: External ear(s): are unremarkable, Ear canal(s): are normal, clear, TM's: dullness, bilaterally, Nose: is normal, Mouth: Lips: moist, Oral mucosa: pink and intact, moist, Posterior pharynx: Airway: no evidence of obstruction, patent, Tonsils: are normal in appearance, erythema, is not appreciated, exudate, is not appreciated. 21:15 Neck: ROM/movement: is normal, is supple, without pain, no range of motions limitations, no meningismus. 21:15 Chest/axilla: Inspection: normal. 21:15 Cardiovascular: Rate: tachycardic, Rhythm: regular. 21:15 Respiratory: the patient does not display signs of respiratory distress, Respirations: normal, no use of accessory muscles, no retractions, labored breathing, is not present, Breath sounds: are clear throughout, no decreased breath sounds, no stridor, no wheezing. 21:15 Abdomen/GI: Inspection: obese scar(s), Bowel sounds: active, all quadrants, Palpation: abdomen is soft and non-tender, in all quadrants, large lateral right non-tender hernia. 21:15 Back: CVA tenderness, is absent. 21:15 Skin: cellulitis, is not appreciated, no rash present. Vital Signs: 18:21 BP 109 / 72; Pulse 106; Resp 17; Temp 100.4(O); Pulse Ox 98% on R/A; Weight 81.65 kg; ss Height 5 ft. 9 in. (175.26 cm); Pain 0/10; 20:52 Temp 101.1(O); vc1 23:00 BP 106 / 64; Pulse 72; Resp 17; Temp 99.8(O); Pulse Ox 94% ; Pain 0/10; vc1 18:21 Body Mass Index 26.58 (81.65 kg, 175.26 cm) MDM: 18:12 Patient medically screened. corey 21:00 Differential diagnosis: viral Infection, bacterial infection, URI, bronchitis, cp pneumonia UTI, gastroenteritis. 23:39 Data reviewed: vital signs, nurses notes, lab test result(s), radiologic studies, CT cp scan. 23:39 Counseling: I had a detailed discussion with the patient and/or guardian regarding: the cp historical points, exam findings, and any diagnostic results supporting the discharge/admit diagnosis, lab results, radiology results, the need for outpatient follow up, a family practitioner, to return to the emergency department if symptoms worsen or persist or if there are any questions or concerns that arise at home. Response to treatment: the patient's symptoms have markedly improved after treatment, and as a result, I will discharge patient. ED course: VSS. Patient appears non-toxic. Will discharge to home for continued monitoring. 09/27 18:25 Order name: Urine Dipstick-Ancillary; Complete Time: 20:28 EDMS 09/27 20:28 Interpretation: Abnormal: UGLUC 3+. cp 09/27 20:54 Order name: CBC with Diff; Complete Time: 22:23 cp 09/27 22:23 Interpretation: Normal except: HGB 13.0; HCT 39.4; MCV 74.8; MCH 24.6; RDW 19.4; MPV cp 7.2; BEENA% 79.3; LYM% 12.3; LYMA 0.6. 09/27 20:54 Order name: CMP; Complete Time: 22:23 cp 09/27 22:24 Interpretation: Normal except: NA 132; K 3.3; GLUC 157; GFR 61; ALK 170; BILIT 1.6; CA cp 8.4; ALB 3.2; GLOB 4.1; A/G 0.8. 09/27 20:54 Order name: Lipase; Complete Time: 22:23 cp 09/27 20:54 Order name: COVID-19/FLU A+B (Document "Date of Onset" if Symptomatic); Complete Time: cp 22:23 09/27 20:54 Order name: CT Abd/Pelvis - IV Contrast Only; Complete Time: 22:23 cp 09/27 20:54 Order name: IV Saline Lock; Complete Time: 21:54 cp 09/27 20:54 Order name: Labs collected and sent; Complete Time: 21:54 cp Administered Medications: 20:55 Drug: Tylenol 1000 mg Route: PO; vc1 22:40 Drug: Pepcid (famotidine) 20 mg Route: IVP; Site: right antecubital; vc1 22:57 Drug: Zofran (Ondansetron) 4 mg Route: IVP; Site: right antecubital; vc1 09/28 00:09 Drug: Rocephin - (cefTRIAXone) 1 grams Route: IVPB; Infused Over: 30 mins; Site: right vc1 forearm; Disposition Summary: 09/27/21 23:39 Discharge Ordered Location: Home cp Problem: new cp Symptoms: have improved cp Condition: Stable cp Diagnosis - Dysuria cp - Fever, unspecified cp Followup: cp - With: Jose Roberto Valiente MD - When: 1 week - Reason: Recheck today's complaints Discharge Instructions: - Discharge Summary Sheet cp - Dysuria cp - Fever, Adult cp Forms: - Medication Reconciliation Form cp - Thank You Letter cp - Antibiotic Education cp - Prescription Opioid Use cp Prescriptions: - Ibuprofen 800 mg Oral Tablet - take 1 tablet by ORAL route every 8 hours As needed take with food; 30 tablet; cp Refills: 0, Product Selection Permitted - Cipro 500 mg Oral Tablet - take 1 tablet by ORAL route every 12 hours for 10 days; 20 tablet; Refills: 0, cp Product Selection Permitted Signatures: Dispatcher [employer] EDNeil Garibay MD MD cha Smirch, Shelby, RN RN ss Neil Rodriguez, PA PA cp Sherin Padgett RN RN vc1
--- NOTE | 2021-09-27 23:40 | ER ---
Nurse's Notes [facility] Name: Luigi Butterfield Age: 55 yrs Sex: Male : 1965 Arrival Date: 09/27/2021 Time: 18:09 Bed 18 Private MD: Diagnosis: Dysuria;Fever, unspecified Presentation: 09/27 18:21 Chief complaint: Patient states: Runny nose and fever that began . Nausea that ss began today. Painful urination and urgency that began in May. Coronavirus screen: Client denies travel out of the [place] in the last 14 days. Client presents with at least one sign or symptom that may indicate coronavirus-19. Standard/surgical mask placed on the client. Ebola Screen: Patient denies exposure to infectious person. Patient denies travel to an Ebola-affected area in the 21 days before illness onset. Initial Sepsis Screen: Does the patient meet any 2 criteria? No. Patient's initial sepsis screen is negative. Does the patient have a suspected source of infection? Yes: Dysuria/Frequency/Urgency/UTI. Risk Assessment: Do you want to hurt yourself or someone else? Patient reports no desire to harm self or others. Onset of symptoms is unknown. 18:21 Method Of Arrival: Ambulatory ss 18:21 Acuity: KAIA 3 ss Triage Assessment: 22:00 General: Appears in no apparent distress. uncomfortable, ill, Behavior is calm, vc1 cooperative, appropriate for age. Pain: Complains of pain in generalized pain all over Pain does not radiate. EENT: No deficits noted. Neuro: No deficits noted. GI: Reports nausea. Historical: - Allergies: 18:24 PENICILLINS; ss - PMHx: 18:24 Diabetes mellitus; Sleep apnea; ss - PSHx: 18:24 Cholecystectomy; hernia repair; ss - Immunization history:: Client reports receiving the 2nd dose of the Covid vaccine. - Social history:: Smoking status: Patient denies any tobacco usage or history of. Screenin:00 Abuse screen: Denies threats or abuse. Nutritional screening: No deficits noted. vc1 Tuberculosis screening: No symptoms or risk factors identified. Fall Risk None identified. Assessment: 22:00 Reassessment: Patient and/or family updated on plan of care and expected duration. Pain vc1 level reassessed. Patient is alert, oriented x 3, equal unlabored respirations, skin warm/dry/pink. 23:00 Reassessment: Patient and/or family updated on plan of care and expected duration. Pain vc1 level reassessed. Patient is alert, oriented x 3, equal unlabored respirations, skin warm/dry/pink. Patient states feeling better. Patient states symptoms have improved. GI: Abdomen is round non-distended. 23:26 Reassessment: See triage assessment. vc1 Vital Signs: 18:21 BP 109 / 72; Pulse 106; Resp 17; Temp 100.4(O); Pulse Ox 98% on R/A; Weight 81.65 kg; ss Height 5 ft. 9 in. (175.26 cm); Pain 0/10; 20:52 Temp 101.1(O); vc1 23:00 BP 106 / 64; Pulse 72; Resp 17; Temp 99.8(O); Pulse Ox 94% ; Pain 0/10; vc1 18:21 Body Mass Index 26.58 (81.65 kg, 175.26 cm) ED Course: 18:09 Patient arrived in ED. ds1 18:11 Neil Darnell MD is Attending Physician. corey 18:24 Triage completed. ss 18:24 Arm band placed on left wrist. ss 18:50 Neil Rodriguez PA is PHCP. cp 20:45 Sherin Padgett, RN is Primary Nurse. vc1 21:00 Patient has correct armband on for positive identification. Bed in low position. Call vc1 light in reach. Pulse ox on. NIBP on. 22:03 COVID-19/FLU A+B (Document "Date of Onset" if Symptomatic) Sent. ld1 22:03 CT Abd/Pelvis - IV Contrast Only Sent. ld1 22:10 CT Abd/Pelvis - IV Contrast Only In Process Unspecified. EDMS 23:38 Jose Roberto Valiente MD is Referral Physician. cp 09/28 00:40 No provider procedures requiring assistance completed. IV discontinued, intact, vc1 bleeding controlled, No redness/swelling at site. Pressure dressing applied. Administered Medications: 09/27 20:55 Drug: Tylenol 1000 mg Route: PO; vc1 22:40 Drug: Pepcid (famotidine) 20 mg Route: IVP; Site: right antecubital; vc1 22:57 Drug: Zofran (Ondansetron) 4 mg Route: IVP; Site: right antecubital; vc1 09/28 00:09 Drug: Rocephin - (cefTRIAXone) 1 grams Route: IVPB; Infused Over: 30 mins; Site: right vc1 forearm; Outcome: 09/27 23:39 Discharge ordered by . andrews 09/28 00:40 Discharged to home ambulatory, with significant other. vc1 Condition: good Discharge instructions given to patient, Instructed on discharge instructions, follow up and referral plans. medication usage, Demonstrated understanding of instructions, follow-up care, medications, Prescriptions given X 2. 00:41 Patient left the ED. vc1 Signatures: Dispatcher [employer] EDMS Neil Darnell MD MD cha Sanford, Demi ds1 [place] Burch RN RN Neil Valdez, PA PA Thao Ward, JESUS RN ld1 Sherin Padgett RN RN vc1
[2021-09-27] MEDS ORDERED: CEFTRIAXONE 1000 MG/VIAL ONE (23:55)
[2021-09-27] MEDS ORDERED: NA CHLORIDE 0.9% 50 ML ONE (23:55)
[2021-09-28 02:02] VITALS: BP 106/64; TEMP 99.8; O2SAT 94
== END 2021-09-28 00:41 | disposition home or self-care (01) ==
LOC: ER 18:07
DX: R50.9 Fever, unspecified (principal); R30.0 Dysuria; E11.9 Type 2 diabetes mellitus without complications; Z88.0 Allergy status to penicillin; Z20.822 Contact with and (suspected) exposure to COVID-19
CPT/HCPCS: 85025; 36415; 81003; 83690; 80053; 0240U; 74177; 99284; Q9967; J2405; J3490